=== PATIENT | male | born 1945 | race Two or more races ===

== ENCOUNTER 2018-01-17 17:45 | Inpatient (IN) | payer MEDICARE, MEDICAID ==
[2018-01-17] VITALS (7 sets, daily range): BP systolic 80–113; BP diastolic 43–71
[~2018-01-17] VITALS: Ht 167.6 cm; Wt 61.2 kg
[~2018-01-17 17:45] MED LIST: Bupivacaine 0.75% 30ml vial INJ ONE; Lidocaine 1% MPF 10mg/ml 5ml INJ ONE; oxyCODONE HCL/Acetaminophen 5/325mg ORAL ONE
--- NOTE | 2018-01-17 17:50 | Emergency Room Report ---
History of Present Illness General Chief Complaint: Multiple Trauma/Fall Source: Patient, EMS Present Illness HPI 72YOM with accidental slip and fall in bathroom at [place] on right side Couldnt move, stand up without assistance EMS noted abrasions to right arm, leg and deformity to right hip Allergies: Coded Allergies: No Known Allergies (Unverified , 01/17/18) Review of Systems All Other Systems: negative except mentioned in HPI Physical Exam Vital Signs Date Time Temp Pulse Resp B/P (MAP) Pulse Ox O2 Delivery O2 Flow Rate FiO2 01/17/18 17:39 98.0 80 16 110/70 98 Room Air 98.1 Sp02 EP Interpretation: reviewed, normal General Appearance: normal inspection, well appearing, no apparent distress, alert, GCS 15, non-toxic Head: normocephalic, atraumatic Eyes: bilateral eye PERRL, bilateral eye EOMI ENT: normal ENT inspection, hearing grossly normal, normal pharynx, no angioedema, normal voice, TMs + canals normal, uvula midline, moist mucus membranes Neck: normal inspection, full range of motion, supple, thyroid normal, no meningismus, no bony tend Respiratory: normal inspection, lungs clear, normal breath sounds, no rhonchi, no respiratory distress, no retraction, no accessory muscle use, no wheezing, speaking full sentences Cardiovascular #1: regular rate, rhythm, no edema, no JVD, normal capillary refill Gastrointestinal: normal inspection, normal bowel sounds, non tender, soft, no mass, no peritonitis, non-distended, no guarding, no hernia, no pulsatile mass Genitourinary: no CVA tenderness Musculoskeletal: normal inspection, back normal, normal range of motion, no calf tenderness, pelvis stable, Terrance's Sign negative, other - Right hip: obvious deformity of proximal hip, shorteend and internally rotated right lower extremity Neurologic: normal inspection, alert, oriented x3, responsive, 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, motor strength/tone normal, cerebellar normal, normal gait, speech normal Psychiatric: normal inspection, judgement/insight normal, mood/affect normal, no suicidal/homicidal ideation, no delusions Skin: other - Abrasions to right elbow and right anterior leg; multiple areas of ecchymoses Lymphatic: normal inspection, no adenopathy Procedures Ultrasound Ultrasound : Consent: Verbal Patient Tolerated: Well Complications: None Progress Ultrasound guided right femoral nerve block done with 8ml Buvipicaine and 2ml lidocaine Medical Decision Making Diagnostic Impression: Primary Impression: Fall Qualified Codes: W19.XXXA - Unspecified fall, initial encounter Additional Impressions: Right hip pain Closed right hip fracture Qualified Codes: S72.001A - Fracture of unspecified part of neck of right femur, initial encounter for closed fracture MARYANNE (acute kidney injury) ER Course Right hip pain found to have right hip fx on ED review of films Oral analgesia and right femoral nerve block provided in ED ECG non-ischemic, Trop 0. Dr Bolaños consulted PCP is Dr Rawls, endorsed to Dr Chinchilla at 740pm for tele bed Also has ?MARYANNE on labs, unknown if acute or chronic - possibly acute given mild hypotension, hypoNa in ED. Responded to LR. EKG Diagnostic Results Rate: normal Rhythm: NSR ST Segments: no acute changes ASA given to the pt in ED: No Rhythm Strip Diag. Results EP Interpretation: yes Rate: 65 Rhythm: NSR, no PVC's, no ectopy Other X-Ray Diagnostic Results Other X-Ray Diagnostic Results #1: X-Ray ordered: AP pelvis # of Views/Limited Vs Complete: 1 View Indication: Pain Interpretation: other Impression: Other - Right hip fx Electronically Signed by: Dr Fidelia Harris MD Other X-Ray Diagnostic Results #2: X-Ray ordered: Right hip # of Views/Limited Vs Complete: 3 View Indication: Pain Interpretation: other - Right hip fx Electronically Signed by: Dr Fidelia Harris MD Last Vital Signs Date Time Temp Pulse Resp B/P (MAP) Pulse Ox O2 Delivery O2 Flow Rate FiO2 01/17/18 17:39 98.0 80 16 110/70 98 Room Air 98.1 Status: improved Disposition: ADMITTED INPATIENT Condition: Serious FIDELIA HARRIS M.D. Jan 17, 2018 17:49
[2018-01-17] MEDS ORDERED: SPIRONOLACTONE100 MG ORAL (17:57)
[2018-01-17] MEDS ORDERED: FUROSEMIDE80 M1 ORAL (17:57)
[2018-01-17] MEDS ORDERED: ASPIR 8181 MG ORAL (17:57)
[2018-01-17] MEDS ORDERED: PANTOPRAZOLE SO40 MG ORAL (17:57)
[2018-01-17] MEDS ORDERED: FOLIC ACID1 MG ORAL (17:57)
[2018-01-17] MEDS ORDERED: TRAZODONE HCL50 MG ORAL (17:57)
[2018-01-17] MEDS ORDERED: LACTULOSE10 GM/153 PO (17:57)
[2018-01-17] MEDS ORDERED: TAMSULOSIN HCL0.4 MG ORAL (17:57)
[2018-01-17] MEDS ORDERED: TYLENOL EXTRA500 MG ORAL (17:57)
[2018-01-17] MEDS ORDERED: PROAIR HFA8.5 GM INH (17:57)
[2018-01-17] MEDS ORDERED: PROSCAR5 MG ORAL (17:57)
[2018-01-17] MEDS ORDERED: VENTOLIN HFA18 GM INH (17:57)
[2018-01-17 18:13] LABS: BASOPHILS % (AUTO) 1.6 % (0.0-2.0); EOSINOPHILS % (AUTO) 6.7 % (0.0-3.0); HEMATOCRIT 42.3 % (42.0-52.0); HEMOGLOBIN 14.8 G/DL (14.2-18.0); LYMPHOCYTES % (AUTO) 28.4 % (20.0-45.0); MEAN CORPUSCULAR VOLUME 98 FL (80-99); MONOCYTES % (AUTO) 13.2 % (1.0-10.0); NEUTROPHILS % (AUTO) 50.1 % (45.0-75.0); PLATELET COUNT 111 K/UL (150-450); RED BLOOD COUNT 4.32 M/UL (4.70-6.10); RED CELL DISTRIBUTION WIDTH 12.2 % (11.6-14.8)
[2018-01-17 18:23] LABS: ANION GAP 10 mmol/L (5-15); BLOOD UREA NITROGEN 36 mg/dL (7-18); CALCIUM 9.5 MG/DL (8.5-10.1); CARBON DIOXIDE 25 MMOL/L (21-32); CHLORIDE 96 MMOL/L (98-107); CREATININE 1.4 MG/DL (0.55-1.30); POTASSIUM 4.6 MMOL/L (3.5-5.1); SODIUM 130 MMOL/L (136-145)
[2018-01-17 18:27] LABS: ALANINE AMINOTRANSFERASE 15 U/L (12-78); ALBUMIN 3.3 G/DL (3.4-5.0); ALBUMIN/GLOBULIN RATIO 0.7 (1.0-2.7); ALKALINE PHOSPHATASE 114 U/L (46-116); ASPARTATE AMINO TRANSFERASE 27 U/L (15-37); BILIRUBIN,TOTAL 0.7 MG/DL (0.2-1.0); INR 1.2 (0.9-1.1)
[2018-01-17] MEDS ORDERED: TraZODone 50mg tab ORAL PRN (19:00)
[2018-01-17] MEDS ORDERED: Miralax 17gm pkt ORAL PRN (19:00)
[2018-01-17] MEDS ORDERED: oxyCODONE HCL/Acetaminophen 5/325mg ORAL PRN (19:00)
[2018-01-17] MEDS ORDERED: Acetaminophen 650 MG SUPP RECTAL PRN ×2 (19:00)
[2018-01-17] MEDS ORDERED: LR 1000ml 1,000 ML IV STA (19:16)
--- NOTE | 2018-01-17 22:35 | History and Physical ---
History of Present Illness General Date patient seen: Jan 17, 2018 Time patient seen: 19:30 Reason for Hospitalization: R hip fracture, syncope Present Illness HPI 72y/o male with pmh of CAD, HTN, PVD, COPD, BPH, tobacco abuse who presents with R hip pain after a fall. Pt states he was in bathroom and felt lightheaded and the room spinning. He then fell to the floor and had brief LOC. He states when he awoke he had full recollection of events. He landed on R side. He couldn 't move or stand up w/o assistance. Denies f/c, n/v, d/c, chest pain, SOB. Pt states he can walk several blocks and at least a flight of stairs. He walks on own and sometimes uses a cane. Activity limited by leg pain/weakness. In ED, pt found to have R hip fracture. Allergies: Coded Allergies: No Known Allergies (Unverified , 01/17/18) Medication History Scheduled Albuterol Sulfate (Ventolin Hfa), 1 PUFF INH EVERY 6 HOURS, (Reported) Albuterol Sulfate* (Proair Hfa*), 1 PUFF INH Q6H, (Reported) Aspirin* (Aspir 81*), 81 MG ORAL DAILY, (Reported) Finasteride* (Proscar*), 5 MG ORAL DAILY, (Reported) Folic Acid* (Folic Acid*), 1 MG ORAL DAILY, (Reported) Furosemide* (Lasix*), 80 MG ORAL BID, (Reported) Pantoprazole* (Pantoprazole*), 40 MG ORAL DAILY, (Reported) Spironolactone* (Spironolactone*), 100 MG ORAL DAILY, (Reported) Tamsulosin Hcl (Tamsulosin Hcl*), 0.4 MG ORAL BEDTIME, (Reported) Trazodone Hcl* (Desyrel*), 50 MG ORAL BEDTIME, (Reported) Scheduled PRN Acetaminophen* (Tylenol Extra Strength*), 500 MG ORAL Q6H PRN for Mild Pain/ Temp > 100.5, (Reported) Miscellaneous Medications Lactulose (Lactulose), 10 GM PO, (Reported) Patient History History Provided By: Patient, Medical Record, PMD Healthcare decision maker Resuscitation status Advanced Directive on File Past Medical/Surgical History Past Medical/Surgical History: (1) CAD (coronary artery disease) (2) HTN (hypertension) (3) HLD (hyperlipidemia) (4) BPH (benign prostatic hyperplasia) (5) COPD (chronic obstructive pulmonary disease) (6) Tobacco abuse (7) PVD (peripheral vascular disease) Family History Family History: Patient reports no known family medical history. Social History Social History: (1) lives [place] [facility] Review of Systems Constitutional: Reports: malaise, weakness Eye: Reports: no symptoms ENT: Reports: no symptoms Respiratory: Reports: no symptoms Cardiovascular: Reports: syncope Gastrointestinal: Reports: no symptoms Genitourinary: Reports: no symptoms Musculoskeletal: Reports: joint pain, muscle pain Skin: Reports: no symptoms Psychiatric: Reports: no symptoms Neurological: Reports: no symptoms Endocrine: Reports: no symptoms Hematologic/Lymphatic: Reports: no symptoms Physical Exam Physical Exam Narrative General: alert, cooperative, no distress, appears stated age Head: normocephalic, without obvious abnormality, atraumatic Eyes: conjunctivae/corneas clear. PERRL, EOM's intact Throat: lips, mucosa, and tongue normal. Dry MM Neck: supple, symmetrical, trachea midline, and no JVD Lungs: clear to auscultation bilaterally Heart: regular rate and rhythm, S1, S2 normal, no murmur, click, rub or gallop Abdomen: soft, non-tender, non-distended, bowel sounds normal Extremities: +R hip TTP w/ ROM limited 2/2 pain, no cyanosis or edema Pulses: 2+ and symmetric Skin: skin color, texture, turgor normal; +abrasions on extremities Neurologic: grossly normal, no focal deficits Last 24 Hour Vital Signs Date Time Temp Pulse Resp B/P (MAP) Pulse Ox O2 Delivery O2 Flow Rate FiO2 01/17/18 19:54 97.5 74 16 113/71 96 Room Air 97.5 01/17/18 19:40 97.5 71 16 100/45 96 Room Air 97.5 01/17/18 19:29 97.5 77 16 87/52 96 Room Air 97.5 01/17/18 17:48 97.1 71 19 94/56 98 Room Air 97.1 01/17/18 17:39 98.0 80 16 110/70 98 Room Air 98.1 Laboratory Tests Test 01/17/18 18:00 White Blood Count 7.0 K/UL (4.8-10.8) Red Blood Count 4.32 M/UL (4.70-6.10) L Hemoglobin 14.8 G/DL (14.2-18.0) Hematocrit 42.3 % (42.0-52.0) Mean Corpuscular Volume 98 FL (80-99) Mean Corpuscular Hemoglobin 34.2 PG (27.0-31.0) H Mean Corpuscular Hemoglobin Concent 34.9 G/DL (32.0-36.0) Red Cell Distribution Width 12.2 % (11.6-14.8) Platelet Count 111 K/UL (150-450) L Mean Platelet Volume 6.0 FL (6.5-10.1) L Neutrophils (%) (Auto) 50.1 % (45.0-75.0) Lymphocytes (%) (Auto) 28.4 % (20.0-45.0) Monocytes (%) (Auto) 13.2 % (1.0-10.0) H Eosinophils (%) (Auto) 6.7 % (0.0-3.0) H Basophils (%) (Auto) 1.6 % (0.0-2.0) Prothrombin Time 12.3 SEC (9.30-11.50) H Prothromb Time International Ratio 1.2 (0.9-1.1) H Sodium Level 130 MMOL/L (136-145) L Potassium Level 4.6 MMOL/L (3.5-5.1) Chloride Level 96 MMOL/L (98-107) L Carbon Dioxide Level 25 MMOL/L (21-32) Anion Gap 10 mmol/L (5-15) Blood Urea Nitrogen 36 mg/dL (7-18) H Creatinine 1.4 MG/DL (0.55-1.30) H Estimat Glomerular Filtration Rate mL/min (>60) Glucose Level 129 MG/DL (74-106) H Calcium Level 9.5 MG/DL (8.5-10.1) Total Bilirubin 0.7 MG/DL (0.2-1.0) Aspartate Amino Transf (AST/SGOT) 27 U/L (15-37) Alanine Aminotransferase (ALT/SGPT) 15 U/L (12-78) Alkaline Phosphatase 114 U/L (46-116) Troponin I 0.000 ng/mL (0.000-0.056) Total Protein 8.3 G/DL (6.4-8.2) H Albumin 3.3 G/DL (3.4-5.0) L Globulin 5.0 g/dL Albumin/Globulin Ratio 0.7 (1.0-2.7) L Height (Feet): 5 Height (Inches): 6.00 Weight (Pounds): 135 Medications Current Medications Medications (Trade) Dose Ordered Sig/Elyse Route PRN Reason Start Time Stop Time Status Last Admin Dose Admin Acetaminophen (Tylenol) 650 mg Q4H PRN ORAL Mild Pain (Pain Scale 1-3) 01/17/18 19:00 02/16/18 18:59 Acetaminophen (Tylenol) 650 mg Q4H PRN ORAL T>100.5 01/17/18 19:00 02/16/18 18:59 Acetaminophen (Tylenol) 650 mg Q4H PRN RECTAL Mild Pain (Pain Scale 1-3) 01/17/18 19:00 02/16/18 18:59 Acetaminophen (Tylenol) 650 mg Q4H PRN RECTAL T>100.5 01/17/18 19:00 02/16/18 18:59 Aspirin (Ecotrin) 81 mg DAILY ORAL 01/18/18 09:00 02/17/18 08:59 Bisacodyl (Dulcolax) 10 mg HSPRN PRN RECTAL Constipation 01/17/18 19:00 02/16/18 18:59 Dextrose (Dextrose 50%) STAT PRN IV Hypoglycemia 01/17/18 19:00 02/16/18 18:59 Diphenhydramine HCl (Benadryl) 25 mg Q6H PRN ORAL Itching/Pruritis 01/17/18 19:00 02/16/18 18:59 Docusate Sodium (Colace) 100 mg EVERY 12 HOURS ORAL 01/17/18 21:00 02/16/18 20:59 Folic Acid (Folate) 1 mg DAILY ORAL 01/18/18 09:00 02/17/18 08:59 Morphine Sulfate (Morphine Sulfate) 4 mg Q4H PRN IVP breakthrough pain 01/17/18 19:00 01/24/18 18:59 Ondansetron HCl (Zofran) 4 mg Q6H PRN IVP Nausea & Vomiting 01/17/18 19:00 02/16/18 18:59 Oxycodone/ Acetaminophen (Percocet 10/325) 1 tab Q4H PRN ORAL Severe Pain (Pain Scale 7-10) 01/17/18 19:00 01/24/18 18:59 Oxycodone/ Acetaminophen (Percocet 5-325) 1 tab Q4H PRN ORAL Moderate Pain (Pain Scale 4-6) 01/17/18 19:00 01/24/18 18:59 Pantoprazole (Protonix) 40 mg DAILY ORAL 01/18/18 09:00 02/17/18 08:59 Polyethylene Glycol (Miralax) 17 gm HSPRN PRN ORAL Constipation 01/17/18 19:00 02/16/18 18:59 Sodium Chloride 1,000 ml @ 75 mls/hr [id number] IV 01/17/18 19:00 02/16/18 18:59 Tamsulosin HCl (Flomax) 0.4 mg BEDTIME ORAL 01/17/18 21:00 02/16/18 20:59 Trazodone HCl (Desyrel) 50 mg HSPRN PRN ORAL insomnia 01/17/18 19:00 02/16/18 18:59 Assessment/Plan Problem List: (1) Fracture of right hip ICD Codes: S72.001A - Fracture of unspecified part of neck of right femur, initial encounter for closed fracture SNOMED: 854379227 (2) Syncope ICD Codes: R55 - Syncope and collapse SNOMED: 892188327 (3) MARYANNE (acute kidney injury) ICD Codes: N17.9 - Acute kidney failure, unspecified SNOMED: 85541130 (4) Hyponatremia ICD Codes: E87.1 - Hypo-osmolality and hyponatremia SNOMED: 97196228 (5) CAD (coronary artery disease) ICD Codes: I25.10 - Atherosclerotic heart disease of [place] coronary artery without angina pectoris SNOMED: 18283226 (6) COPD (chronic obstructive pulmonary disease) ICD Codes: J44.9 - Chronic obstructive pulmonary disease, unspecified SNOMED: 06142580 (7) HTN (hypertension) ICD Codes: I10 - Essential (primary) hypertension SNOMED: 52852240 (8) HLD (hyperlipidemia) ICD Codes: E78.5 - Hyperlipidemia, unspecified SNOMED: 77833465 (9) BPH (benign prostatic hyperplasia) ICD Codes: N40.0 - Benign prostatic hyperplasia without lower urinary tract symptoms SNOMED: 923988598 (10) Tobacco abuse ICD Codes: Z72.0 - Tobacco use SNOMED: 790808591 Status: stable Assessment/Plan Labs with evidence of dehydration. Syncope may be 2/2 orthostatic hypotension Admit to tele Ortho consulted [facility] RLE Likely plan for OR for ORIF per ortho in 1-2 days Pain control, bowel regimen Cardiology consulted Trend trop/EKG Check TTE Check Carotid duplex IVFs for MARYANNE Cont home meds but hold home lasix and aldactone for now DVT Prophylaxis: SCD Code Status: Full Hospital Classification Declaration: Based on this initial evaluation, and depending on the patient's clinical course, I anticipate that this patient will require hospitalization for 2-3 days for R hip fracture, syncope, MARYANNE and close respiratory/hemodynamic monitoring. Disposition: Once the patient is stable to leave the hospital, I anticipate the patient will likely be discharged to the following environment: back to [facility] vs SNF I spent 70 minutes on this patient's case, and >50% was dedicated to counseling and/or care coordination. Discussed with patient/family, nursing staff, SW/CM, ER physician, cardiology regarding clinical status, treatment course, and disposition planning. Time of note may not reflect time of encounter. Amor Perdomo M.D. Jan 17, 2018 22:35
[2018-01-17] MEDS: Tamsulosin 0.4mg cap ORAL SCH (23:32)
[2018-01-17] MEDS: Docusate 100mg cap ORAL SCH (23:32)
[2018-01-18] VITALS: BP 95/50
[2018-01-18 04:00] VITALS: BP 120/47
[2018-01-18 07:19] LABS: BASOPHILS % (AUTO) 0.8 % (0.0-2.0); EOSINOPHILS % (AUTO) 1.7 % (0.0-3.0); HEMATOCRIT 32.2 % (42.0-52.0); HEMOGLOBIN 11.4 G/DL (14.2-18.0); LYMPHOCYTES % (AUTO) 24.8 % (20.0-45.0); MEAN CORPUSCULAR VOLUME 98 FL (80-99); MONOCYTES % (AUTO) 15.5 % (1.0-10.0); NEUTROPHILS % (AUTO) 57.1 % (45.0-75.0); PLATELET COUNT 100 K/UL (150-450); RED BLOOD COUNT 3.28 M/UL (4.70-6.10); RED CELL DISTRIBUTION WIDTH 12.3 % (11.6-14.8); WHITE BLOOD COUNT 8.4 K/UL (4.8-10.8)
[2018-01-18 07:32] LABS: ANION GAP 7 mmol/L (5-15); BLOOD UREA NITROGEN 37 mg/dL (7-18); CALCIUM 8.8 MG/DL (8.5-10.1); CARBON DIOXIDE 25 MMOL/L (21-32); CHLORIDE 101 MMOL/L (98-107); CREATININE 1.3 MG/DL (0.55-1.30); POTASSIUM 4.8 MMOL/L (3.5-5.1); SODIUM 133 MMOL/L (136-145)
--- NOTE | 2018-01-18 07:49 | Consultation ---
Consult Note Consult Note Patient seen/evaluated. Right hip fx. Plan on ORIF tomorrow afternoon. Discussed plan with the patient. Full consult dictated. JESSICA RODGERS Jan 18, 2018 07:49
[2018-01-18] MEDS ORDERED: ceFAZolin sod 2 GM in D5W 110 ML IV ONE (08:00)
[2018-01-18 08:13] VITALS: BP 120/78
[2018-01-18] MEDS: Docusate 100mg cap ORAL SCH ×2 (08:48→21:52)
[2018-01-18] MEDS: Aspirin EC 81mg tab ORAL SCH (08:48)
--- NOTE | 2018-01-18 09:15 | Diagnostic Imaging Report ---
Indication: Pain, status post fall Technique: One view of the pelvis, 2 views of the right hip Comparison: none Findings: There is a comminuted angulated intertrochanteric fracture of the right hip. No definite pelvic fracture demonstrated. The joint spaces are preserved. Impression: Positive for right hip intertrochanteric fracture Electronic medical record indicates that patient has been admitted and orthopedic consult obtained
--- NOTE | 2018-01-18 09:41 | Diagnostic Imaging Report ---
Indication: Chest pain Technique: One view of the chest Comparison: Findings: Atelectatic changes are seen in the right lung base. Lungs and pleural spaces are otherwise clear. Heart size is normal. The aorta is elongated and calcified. Impression: Basilar atelectasis. No acute process otherwise
[2018-01-18] MEDS ORDERED: Bupivacaine 0.75% 30ml vial INJ ONE (11:59)
[2018-01-18 12:00] VITALS: BP 103/60
[2018-01-18] MEDS ORDERED: Albuterol/Ipratropium 3ml neb HHN PRN (12:45)
[2018-01-18] MEDS: Albuterol/Ipratropium 3ml neb HHN SCH ×2 (13:30→19:35)
[2018-01-18 16:00] VITALS: BP 94/54
--- NOTE | 2018-01-18 16:48 | Anethesia Preoperative Eval ---
Anesthesia Pre-op PMH/ROS General Date of Evaluation: Jan 18, 2018 Time of Evaluation: 16:42 Anesthesiologist: Paresh ASA Score: ASA 3 Mallampati Score Class I : Soft palate, uvula, fauces, pillars visible Class II: Soft palate, uvula, fauces visible Class III: Soft palate, base of uvula visible Class IV: Only hard plate visible Mallampati Classification: Class III Surgeon: Georgi Diagnosis: R femoral Fx Surgical Procedure: ORIF of R femoral Fx. Anesthesia History: none Social History: smoking - h/o heavy smoking Family History: no anesthesia problems Allergies: Coded Allergies: No Known Allergies (Unverified , 01/17/18) Past Medical History Cardiovascular: Reports: HTN, CAD - no recent CP, other - PVD Pulmonary: Reports: COPD, Denies: asthma, ELZA, other Gastrointestinal/Genitourinary: Reports: GERD, Denies: CRI, ESRD, other Neurologic/Psychiatric: Reports: depression/anxiety, Denies: dementia, CVA, TIA, other Endocrine: Denies: DM, hypothyroidism, steroids, other HEENT: Denies: cataract (L), cataract (R), glaucoma, [place] (L), [place] (R), other Hematology/Immune: Denies: anemia, DVT, bleeding disorder, other Musculoskeletal/Integumentary: Reports: DJD, Denies: OA, RA, DDD, edema, other Other: other - malnourished PMH Narrative: as above , mechanical fall possible syncope PSxH Narrative: see H&P Anesthesia Pre-op Phys. Exam Physician Exam Last Vital Signs Date Time Temp Pulse Resp B/P (MAP) Pulse Ox O2 Delivery O2 Flow Rate FiO2 01/18/18 16:08 97.0 01/18/18 15:40 78 22 94 Nasal Cannula 2.0 28 01/18/18 12:00 103/60 Constitutional: NAD Neurologic: CN 2-12 intact Cardiovascular: no M/R/G Respiratory: other - diffuse wheezing bilaterally Gastrointestinal: S/NT/ND Airway Exam Mallampati Score: Class III MO: limited Neck: stiff ROM: limited Teeth: missing Dentures: no upper, no lower Anesthesia Pre-op A/P Labs Hematology Test 01/17/18 18:00 01/18/18 06:05 White Blood Count 7.0 K/UL (4.8-10.8) 8.4 K/UL (4.8-10.8) Red Blood Count 4.32 M/UL (4.70-6.10) L 3.28 M/UL (4.70-6.10) L Hemoglobin 14.8 G/DL (14.2-18.0) 11.4 G/DL (14.2-18.0) L Hematocrit 42.3 % (42.0-52.0) 32.2 % (42.0-52.0) L Mean Corpuscular Volume 98 FL (80-99) 98 FL (80-99) Mean Corpuscular Hemoglobin 34.2 PG (27.0-31.0) H 34.7 PG (27.0-31.0) H Mean Corpuscular Hemoglobin Concent 34.9 G/DL (32.0-36.0) 35.3 G/DL (32.0-36.0) Red Cell Distribution Width 12.2 % (11.6-14.8) 12.3 % (11.6-14.8) Platelet Count 111 K/UL (150-450) L 100 K/UL (150-450) L Mean Platelet Volume 6.0 FL (6.5-10.1) L 5.9 FL (6.5-10.1) L Neutrophils (%) (Auto) 50.1 % (45.0-75.0) 57.1 % (45.0-75.0) Lymphocytes (%) (Auto) 28.4 % (20.0-45.0) 24.8 % (20.0-45.0) Monocytes (%) (Auto) 13.2 % (1.0-10.0) H 15.5 % (1.0-10.0) H Eosinophils (%) (Auto) 6.7 % (0.0-3.0) H 1.7 % (0.0-3.0) Basophils (%) (Auto) 1.6 % (0.0-2.0) 0.8 % (0.0-2.0) Coagulation Test 01/17/18 18:00 Prothrombin Time 12.3 SEC (9.30-11.50) H Prothromb Time International Ratio 1.2 (0.9-1.1) H Chemistry Test 01/17/18 18:00 01/18/18 06:05 01/18/18 12:30 Sodium Level 130 MMOL/L (136-145) L 133 MMOL/L (136-145) L Potassium Level 4.6 MMOL/L (3.5-5.1) 4.8 MMOL/L (3.5-5.1) Chloride Level 96 MMOL/L (98-107) L 101 MMOL/L (98-107) Carbon Dioxide Level 25 MMOL/L (21-32) 25 MMOL/L (21-32) Anion Gap 10 mmol/L (5-15) 7 mmol/L (5-15) Blood Urea Nitrogen 36 mg/dL (7-18) H 37 mg/dL (7-18) H Creatinine 1.4 MG/DL (0.55-1.30) H 1.3 MG/DL (0.55-1.30) Estimat Glomerular Filtration Rate mL/min (>60) mL/min (>60) Glucose Level 129 MG/DL (74-106) H 109 MG/DL (74-106) H Calcium Level 9.5 MG/DL (8.5-10.1) 8.8 MG/DL (8.5-10.1) Total Bilirubin 0.7 MG/DL (0.2-1.0) Aspartate Amino Transf (AST/SGOT) 27 U/L (15-37) Alanine Aminotransferase (ALT/SGPT) 15 U/L (12-78) Alkaline Phosphatase 114 U/L (46-116) Troponin I 0.000 ng/mL (0.000-0.056) 0.000 ng/mL (0.000-0.056) 0.004 ng/mL (0.000-0.056) Total Protein 8.3 G/DL (6.4-8.2) H Albumin 3.3 G/DL (3.4-5.0) L Globulin 5.0 g/dL Albumin/Globulin Ratio 0.7 (1.0-2.7) L Pro-B-Type Natriuretic Peptide 121 pg/mL (0-125) Vitamin B12 Level 441 PG/ML (193-986) Vitamin D 25-Hydroxy Pending 25-Hydroxy Vitamin D2 Pending 25-Hydroxy Vitamin D3 Pending Folate 63.6 NG/ML (8.6-58.9) H Thyroid Stimulating Hormone (TSH) 2.306 uiU/mL (0.358-3.740) Studies Pre-op Studies: EKG - NSR Risk Assessment & Plan Assessment: ASA 3 Plan: SAB vs GA Pre-Antibiotics Drug: as scheduled MARTA MONSON M.D. Jan 18, 2018 16:48
--- NOTE | 2018-01-18 16:54 | Cardiac Electrophysiology PN ---
Subjective Subjective [id number] Objective Last 24 Hour Vital Signs Date Time Temp Pulse Resp B/P (MAP) Pulse Ox O2 Delivery O2 Flow Rate FiO2 01/18/18 16:08 97.0 01/18/18 15:40 78 22 94 Nasal Cannula 2.0 28 01/18/18 15:30 75 22 Nasal Cannula 3.0 32 01/18/18 15:30 75 22 98 Nasal Cannula 3.0 32 01/18/18 12:00 97.0 71 18 103/60 97 Nasal Cannula 97.0 01/18/18 12:00 80 01/18/18 10:00 Nasal Cannula 2.0 28 01/18/18 10:00 94 Nasal Cannula 2.0 28 01/18/18 09:52 98.2 01/18/18 08:53 98.2 01/18/18 08:13 98.2 75 17 120/78 94 Nasal Cannula 98.2 01/18/18 08:00 86 01/18/18 04:00 98.3 75 21 120/47 94 Nasal Cannula 98.3 01/18/18 03:53 84 01/18/18 00:00 97.3 74 23 95/50 95 Nasal Cannula 97.3 01/17/18 23:56 71 01/17/18 21:35 97.5 74 16 91/48 96 Room Air 97.5 01/17/18 21:30 97.5 74 16 91/48 96 Room Air 97.5 01/17/18 21:20 97.5 74 16 80/43 96 Room Air 97.5 01/17/18 21:00 97.5 70 16 94/45 96 Room Air 97.5 01/17/18 19:54 97.5 74 16 113/71 96 Room Air 97.5 01/17/18 19:40 97.5 71 16 100/45 96 Room Air 97.5 01/17/18 19:29 97.5 77 16 87/52 96 Room Air 97.5 01/17/18 17:48 97.1 71 19 94/56 98 Room Air 97.1 01/17/18 17:39 98.0 80 16 110/70 98 Room Air 98.1 Intake and Output 01/17/18 01/18/18 19:00 07:00 Intake Total 555 ml Output Total 200 ml Balance 355 ml Intake Oral 0 ml IV Total 555 ml Output Urine Total 200 ml Laboratory Tests Test 01/17/18 18:00 01/18/18 06:05 01/18/18 12:30 White Blood Count 7.0 K/UL (4.8-10.8) 8.4 K/UL (4.8-10.8) Red Blood Count 4.32 M/UL (4.70-6.10) L 3.28 M/UL (4.70-6.10) L Hemoglobin 14.8 G/DL (14.2-18.0) 11.4 G/DL (14.2-18.0) L Hematocrit 42.3 % (42.0-52.0) 32.2 % (42.0-52.0) L Mean Corpuscular Volume 98 FL (80-99) 98 FL (80-99) Mean Corpuscular Hemoglobin 34.2 PG (27.0-31.0) H 34.7 PG (27.0-31.0) H Mean Corpuscular Hemoglobin Concent 34.9 G/DL (32.0-36.0) 35.3 G/DL (32.0-36.0) Red Cell Distribution Width 12.2 % (11.6-14.8) 12.3 % (11.6-14.8) Platelet Count 111 K/UL (150-450) L 100 K/UL (150-450) L Mean Platelet Volume 6.0 FL (6.5-10.1) L 5.9 FL (6.5-10.1) L Neutrophils (%) (Auto) 50.1 % (45.0-75.0) 57.1 % (45.0-75.0) Lymphocytes (%) (Auto) 28.4 % (20.0-45.0) 24.8 % (20.0-45.0) Monocytes (%) (Auto) 13.2 % (1.0-10.0) H 15.5 % (1.0-10.0) H Eosinophils (%) (Auto) 6.7 % (0.0-3.0) H 1.7 % (0.0-3.0) Basophils (%) (Auto) 1.6 % (0.0-2.0) 0.8 % (0.0-2.0) Prothrombin Time 12.3 SEC (9.30-11.50) H Prothromb Time International Ratio 1.2 (0.9-1.1) H Sodium Level 130 MMOL/L (136-145) L 133 MMOL/L (136-145) L Potassium Level 4.6 MMOL/L (3.5-5.1) 4.8 MMOL/L (3.5-5.1) Chloride Level 96 MMOL/L (98-107) L 101 MMOL/L (98-107) Carbon Dioxide Level 25 MMOL/L (21-32) 25 MMOL/L (21-32) Anion Gap 10 mmol/L (5-15) 7 mmol/L (5-15) Blood Urea Nitrogen 36 mg/dL (7-18) H 37 mg/dL (7-18) H Creatinine 1.4 MG/DL (0.55-1.30) H 1.3 MG/DL (0.55-1.30) Estimat Glomerular Filtration Rate mL/min (>60) mL/min (>60) Glucose Level 129 MG/DL (74-106) H 109 MG/DL (74-106) H Calcium Level 9.5 MG/DL (8.5-10.1) 8.8 MG/DL (8.5-10.1) Total Bilirubin 0.7 MG/DL (0.2-1.0) Aspartate Amino Transf (AST/SGOT) 27 U/L (15-37) Alanine Aminotransferase (ALT/SGPT) 15 U/L (12-78) Alkaline Phosphatase 114 U/L (46-116) Troponin I 0.000 ng/mL (0.000-0.056) 0.000 ng/mL (0.000-0.056) 0.004 ng/mL (0.000-0.056) Total Protein 8.3 G/DL (6.4-8.2) H Albumin 3.3 G/DL (3.4-5.0) L Globulin 5.0 g/dL Albumin/Globulin Ratio 0.7 (1.0-2.7) L Pro-B-Type Natriuretic Peptide 121 pg/mL (0-125) Vitamin B12 Level 441 PG/ML (193-986) Vitamin D 25-Hydroxy Pending 25-Hydroxy Vitamin D2 Pending 25-Hydroxy Vitamin D3 Pending Folate 63.6 NG/ML (8.6-58.9) H Thyroid Stimulating Hormone (TSH) 2.306 uiU/mL (0.358-3.740) KINZA MCCOY Jan 18, 2018 16:54
[2018-01-18 20:00] VITALS: BP 93/55
--- NOTE | 2018-01-18 21:02 | Consultation ---
DATE OF CONSULTATION: 01/18/2018 ORTHOPEDIC CONSULTATION CONSULTING PHYSICIAN: Alec Laureano M.D. REQUESTING PHYSICIAN: Albertina Rawls M.D. REASON FOR CONSULTATION: Right-sided hip fracture. BRIEF HISTORY: The patient is a pleasant 72-year-old gentleman who lives in a board and care facility, ambulates using a cane. He states that 2 weeks ago, he fell and had some bruising in his forehead and in his forearm, however, he was able to walk around and ambulate without significant difficulty using a cane, however, last night, he was in the board and care facility and he went to the bathroom and slipped on the floor and landed on his right side on the hard tile. He had immediate onset of pain about the right hip. He was unable to ambulate. He was brought in to [facility] and x-rays revealed a comminuted peritrochanteric fracture of the right hip. Orthopedic consultation was obtained. The patient was admitted to Dr. Rawls. Generally, the patient is in reasonable health. PAST MEDICAL HISTORY: History of hypertension. PAST SURGICAL HISTORY: None available. MEDICATIONS: Please see chart. ALLERGIES: No known drug allergies. SOCIAL HISTORY: He lives in a board and care facility and uses a cane to get around. He does not smoke or drink excessively. REVIEW OF SYSTEMS: Noncontributory. PHYSICAL EXAMINATION: Examination of the right hip reveals right leg is slightly short and externally rotated. He has got tenderness over the right peritrochanteric area. He has got a lot of bruising in his arm and his legs due to previous falls. There is no evidence of a large hematoma today. X-RAYS: X-ray of right hip was reviewed. There is a peritrochanteric right hip fracture. IMPRESSION: Right hip peritrochanteric fracture. PLAN: At this time, I had discussion with the patient. I explained to him my findings. I recommend proceeding with right hip open reduction and internal fixation with a short gamma nail. Risks, benefits, and complications of the surgery were discussed with him. He understands the risks of surgery and complications associated with it and will like to go ahead and proceed with it. All questions were answered. We will go ahead and proceed with surgery tomorrow. We will have him n.p.o. past midnight. We will do 2D echo and he will be optimized by Medicine prior to proceeding with surgery. All questions were answered. Alec Laureano M.D. DR: Ariadna JOB#: [id number] CC: LILIAM
[2018-01-18] MEDS: Morphine Sulfate 4mg/ml Inj IVP PRN (21:52)
[2018-01-18] MEDS: Tamsulosin 0.4mg cap ORAL SCH (21:53)
--- NOTE | 2018-01-18 23:01 | Consultation ---
DATE OF CONSULTATION: 01/18/2018 CARDIOLOGY CONSULTATION CONSULTING PHYSICIAN: Jesus Goins M.D. REFERRING PHYSICIAN: Albertina Rawls M.D. REASON FOR CONSULTATION: Management of hypertension and preoperative clearance prior to right hip surgery. HISTORY OF PRESENT ILLNESS: The patient is a 72-year-old gentleman with history of hypertension, COPD, and benign prostatic hypertrophy as well as questionable myocardial infarction more than 30 years ago. The patient also has history of tobacco abuse, who presented to the emergency room after a fall and right hip pain. He was in the bathroom and felt lightheaded and then room was spinning and then fell on the floor, had a brief loss of consciousness. He states that when he woke up, he had full recollection of the events and landed on the right side, could not move or stand up. Denies any chest pain, shortness of breath, nausea, vomiting, or diaphoresis. The patient has not had any cardiac history in the last 20 years and has not seen a certified pharmacy tech. In the emergency room, the patient was found to have right hip fracture and was evaluated by Dr. Laureano and scheduled for surgery tomorrow. PAST MEDICAL HISTORY: As mentioned above. MEDICATIONS: Medications at home include aspirin, folic acid, Lasix, Aldactone, Flomax, and Ventolin. FAMILY HISTORY: Noncontributory. SOCIAL HISTORY: He lives at home, occasionally smokes, does not drink alcohol. REVIEW OF SYSTEMS: Review of systems was performed and was negative other than what was mentioned in the history of present illness. PHYSICAL EXAMINATION: VITAL SIGNS: Showed blood pressure of 110/70, pulse 70, respirations 18, and he is afebrile. HEAD AND NECK: Showed no JVD or carotid bruit. LUNGS: Clear. CARDIOVASCULAR: Shows regular S1 and S2 with no gallop or murmur. ABDOMEN: Soft. EXTREMITIES: Showed no pitting edema. Right hip is rotated. LABORATORY AND DIAGNOSTIC DATA: His labs show white count of 8.4, hemoglobin 11.4, hematocrit 32.2, and platelet count of 100. Sodium 132, potassium is 4.8, BUN of 37, creatinine 1.3, and glucose of 109. Troponin negative x2. EKG shows sinus rhythm. No acute ST-T wave abnormality and poor R-wave progression. ASSESSMENT AND PLAN: 1. Status post fall versus syncope. The patient states that he has a good recollection of the event. He is already ruled out for myocardial infarction. His vital signs have been stable. We will just get an echocardiogram to evaluate for ejection fraction and wall motion abnormality. 2. History of asthma, on albuterol. 3. Right hip fracture. The patient does not have any chest pain or shortness of breath. There is no history of congestive heart failure. The patient is cleared from cardiac standpoint to undergo the right hip surgery. Thank you very much for allowing me to participate in the care of this patient. Please do not hesitate to contact me for any questions regarding my evaluation. Jesus Goins M.D. DR: MARK JOB#: [id number] CC:
--- NOTE | 2018-01-18 23:01 | General Progress Note ---
Assessment/Plan Problem List: (1) Fracture of right hip ICD Codes: S72.001A - Fracture of unspecified part of neck of right femur, initial encounter for closed fracture SNOMED: 354887369 (2) Syncope ICD Codes: R55 - Syncope and collapse SNOMED: 294382169 (3) MARYANNE (acute kidney injury) ICD Codes: N17.9 - Acute kidney failure, unspecified SNOMED: 33380819 (4) Hyponatremia ICD Codes: E87.1 - Hypo-osmolality and hyponatremia SNOMED: 06530474 (5) CAD (coronary artery disease) ICD Codes: I25.10 - Atherosclerotic heart disease of [place] coronary artery without angina pectoris SNOMED: 95124773 (6) COPD (chronic obstructive pulmonary disease) ICD Codes: J44.9 - Chronic obstructive pulmonary disease, unspecified SNOMED: 88011744 (7) HTN (hypertension) ICD Codes: I10 - Essential (primary) hypertension SNOMED: 48288764 (8) HLD (hyperlipidemia) ICD Codes: E78.5 - Hyperlipidemia, unspecified SNOMED: 06179023 (9) BPH (benign prostatic hyperplasia) ICD Codes: N40.0 - Benign prostatic hyperplasia without lower urinary tract symptoms SNOMED: 337715538 (10) Tobacco abuse ICD Codes: Z72.0 - Tobacco use SNOMED: 310850725 (11) PVD (peripheral vascular disease) ICD Codes: I73.9 - Peripheral vascular disease, unspecified SNOMED: 341599212 (12) Alcoholic liver disease Assessment & Plan: Cirrhosis ICD Codes: K70.9 - Alcoholic liver disease, unspecified SNOMED: 12481334 Status: stable Status Narrative Labs with evidence of dehydration. Syncope may be 2/2 orthostatic hypotension Monitor on tele Ortho consulted [facility] RLE Plan for ORIF tomorrow, NPO at [facility] Pain control, bowel regimen Cardiology consulted Trop neg Check TTE--EF wnl Check Carotid duplex IVFs for MARYANNE Cont home meds but hold home lasix and aldactone for now DVT Prophylaxis: SCD Code Status: Full Hospital Classification Declaration: Based on this initial evaluation, and depending on the patient's clinical course, I anticipate that this patient will require hospitalization for 2-3 days for R hip fracture, syncope, MARYANNE and close respiratory/hemodynamic monitoring. Disposition: Once the patient is stable to leave the hospital, I anticipate the patient will likely be discharged to the following environment: back to [facility] vs SNF Discussed with patient/family, nursing staff, SW/CM, ER physician, cardiology regarding clinical status, treatment course, and disposition planning. Time of note may not reflect time of encounter. Subjective Date patient seen: Jan 18, 2018 Time patient seen: 11:00 ROS Limited/Unobtainable: No Constitutional: Reports: no symptoms HEENT: Reports: no symptoms Cardiovascular: Reports: no symptoms Respiratory: Reports: no symptoms Gastrointestinal/Abdominal: Reports: no symptoms Genitourinary: Reports: no symptoms Neurologic/Psychiatric: Reports: no symptoms Endocrine: Reports: no symptoms Hematologic/Lymphatic: Reports: no symptoms Allergies: Coded Allergies: No Known Allergies (Unverified , 01/17/18) Subjective No acute o/n events Awaiting OR for ORIF per ortho Pain controlled. Denies f/c, n/v, d/c, chest pain, SOB, abd pain Objective Last 24 Hour Vital Signs Date Time Temp Pulse Resp B/P (MAP) Pulse Ox O2 Delivery O2 Flow Rate FiO2 01/18/18 22:22 97.7 01/18/18 21:52 97.7 01/18/18 20:00 97.7 79 24 93/55 98 Nasal Cannula 97.7 01/18/18 19:48 78 18 94 Nasal Cannula 3.0 32 01/18/18 19:39 Nasal Cannula 2.0 28 01/18/18 19:39 74 18 92 Nasal Cannula 2.0 28 01/18/18 19:37 93 Nasal Cannula 2.0 28 01/18/18 17:07 97.0 01/18/18 16:08 97.0 01/18/18 16:00 98.1 76 18 94/54 97 Nasal Cannula 98.1 01/18/18 16:00 70 01/18/18 15:40 78 22 94 Nasal Cannula 2.0 28 01/18/18 15:30 75 22 Nasal Cannula 3.0 32 01/18/18 15:30 75 22 98 Nasal Cannula 3.0 32 01/18/18 12:00 97.0 71 18 103/60 97 Nasal Cannula 97.0 01/18/18 12:00 80 01/18/18 10:00 Nasal Cannula 2.0 28 01/18/18 10:00 94 Nasal Cannula 2.0 28 01/18/18 08:53 98.2 01/18/18 08:13 98.2 75 17 120/78 94 Nasal Cannula 98.2 01/18/18 08:00 86 01/18/18 04:00 98.3 75 21 120/47 94 Nasal Cannula 98.3 01/18/18 03:53 84 01/18/18 00:00 97.3 74 23 95/50 95 Nasal Cannula 97.3 01/17/18 23:56 71 Intake and Output 01/17/18 01/18/18 19:00 07:00 Intake Total 555 ml Output Total 200 ml Balance 355 ml Intake Oral 0 ml IV Total 555 ml Output Urine Total 200 ml Laboratory Tests 01/18/18 06:05: White Blood Count 8.4, Red Blood Count 3.28L, Hemoglobin 11.4L, Hematocrit 32.2L , Mean Corpuscular Volume 98, Mean Corpuscular Hemoglobin 34.7H, Mean Corpuscular Hemoglobin Concent 35.3, Red Cell Distribution Width 12.3, Platelet Count 100L, Mean Platelet Volume 5.9L, Neutrophils (%) (Auto) 57.1, Lymphocytes (%) (Auto) 24.8, Monocytes (%) (Auto) 15.5H, Eosinophils (%) (Auto) 1.7, Basophils (%) (Auto) 0.8, Sodium Level 133L, Potassium Level 4.8, Chloride Level 101, Carbon Dioxide Level 25, Anion Gap 7, Blood Urea Nitrogen 37H, Creatinine 1.3, Estimat Glomerular Filtration Rate , Glucose Level 109H, Calcium Level 8.8, Troponin I 0.000, Pro-B-Type Natriuretic Peptide 121, Vitamin B12 Level 441, Vitamin D 25-Hydroxy [Pending], 25-Hydroxy Vitamin D2 [ Pending], 25-Hydroxy Vitamin D3 [Pending], Folate 63.6H, Thyroid Stimulating Hormone (TSH) 2.306 01/18/18 12:30: Troponin I 0.004 Height (Feet): 5 Height (Inches): 6.00 Weight (Pounds): 135 Objective General: alert, cooperative, no distress, appears stated age Head: normocephalic, without obvious abnormality, atraumatic Eyes: conjunctivae/corneas clear. PERRL, EOM's intact Throat: lips, mucosa, and tongue normal. Dry MM Neck: supple, symmetrical, trachea midline, and no JVD Lungs: clear to auscultation bilaterally Heart: regular rate and rhythm, S1, S2 normal, no murmur, click, rub or gallop Abdomen: soft, non-tender, non-distended, bowel sounds normal Extremities: +R hip TTP w/ ROM limited 2/2 pain, no cyanosis or edema Pulses: 2+ and symmetric Skin: skin color, texture, turgor normal; +abrasions on extremities Neurologic: grossly normal, no focal deficits Amor Perodmo M.D. Jan 18, 2018 23:01
[2018-01-19] VITALS (20 sets, daily range): BP systolic 85–118; BP diastolic 40–66
[2018-01-19] MEDS: Albuterol/Ipratropium 3ml neb HHN SCH ×4 (02:00→20:05)
[2018-01-19] MEDS: Morphine Sulfate 4mg/ml Inj IVP PRN ×2 (04:18→10:25)
[2018-01-19 07:20] LABS: HEMATOCRIT 28.5 % (42.0-52.0); HEMOGLOBIN 9.9 G/DL (14.2-18.0); MEAN CORPUSCULAR VOLUME 100 FL (80-99); PLATELET COUNT 88 K/UL (150-450); RED BLOOD COUNT 2.86 M/UL (4.70-6.10); RED CELL DISTRIBUTION WIDTH 12.6 % (11.6-14.8)
[2018-01-19 07:22] LABS: ANION GAP 6 mmol/L (5-15); BLOOD UREA NITROGEN 29 mg/dL (7-18); CALCIUM 8.9 MG/DL (8.5-10.1); CARBON DIOXIDE 25 MMOL/L (21-32); CHLORIDE 104 MMOL/L (98-107); CREATININE 1.1 MG/DL (0.55-1.30); POTASSIUM 4.8 MMOL/L (3.5-5.1); SODIUM 135 MMOL/L (136-145)
[2018-01-19] MEDS: Docusate 100mg cap ORAL SCH (08:40)
[2018-01-19] MEDS: Aspirin EC 81mg tab ORAL SCH (08:40)
--- NOTE | 2018-01-19 10:33 | Pre-Procedure Note/Attestation ---
Pre-Procedure Note/Attestation Complete Prior to Procedure Planned Procedure: right Procedure Narrative: Rt hip ORIF Indications for Procedure Pre-Operative Diagnosis: Rt hip IT fracture Attestation I attest that I discussed the nature of the procedure; its benefits; risks and complications; and alternatives (and the risks and benefits of such alternatives ), prior to the procedure, with the patient (or the patient's legal apprenticeship training representative). I attest that, if there was a reasonable possibility of needing a blood transfusion, the patient (or the patient's legal apprenticeship training representative) was given the [facility] standardized written summary, pursuant to the [employer] Blood Safety Act ([place] Health and Safety Code # 1645, as amended). I attest that I re-evaluated the patient just prior to the surgery and that there has been no change in the patient's H&P, except as documented below: NONE JESSICA RODGERS Jan 19, 2018 10:33
--- NOTE | 2018-01-19 13:19 | Cardiology Report ---
APPROVED REPORT EXAM: Two-dimensional and M-mode echocardiogram with Doppler and color Doppler. INDICATION PRE-OP M-Mode DIMENSIONS IVSd1.5 (0.7-1.1cm)Left Atrium (MM)2.8 (1.6-4.0cm) LVDd5.2 (3.5-5.6cm)Aortic Root4.2 (2.0-3.7cm) PWd1.7 (0.7-1.1cm)Aortic Cusp Exc.1.9 (1.5-2.0cm) IVSs2.1 cm LVDs3.4 (2.5-4.0cm) PWs1.9 cm Technically difficult study due to poor acoustical windows. Normal left ventricular chamber size, systolic function and wall motion to extent visualized. Left ventricular ejection fraction estimated to be 60-65 %. No evidence of left ventricular hypertrophy. No evidence of pericardial effusion. All other cardiac chamber sizes are within normal. Focal aortic valve sclerosis with adequate cusp excursion. Thickened mitral valve leaflets with normal excursion. Mitral annulus and aortic root calcification. Pulmonic valve not well visualized. Normal tricuspid valve structure. IVC dilated at 2.3 cm with slight physiologic collapse suggestive of increased RA pressure. A color flow and spectral Doppler study was performed and revealed: No aortic regurgitation. Trace mitral regurgitation. Mitral diastolic velocities suggest reduced left ventricular relaxation c/w mild LV diastolic dysfunction (Grade I ). Trace tricuspid regurgitation. No pulmonic regurgitation present
[2018-01-19] MEDS ORDERED: Bacitracin 50000 Units Vial ONE (13:35)
[2018-01-19] MEDS ORDERED: Bupivacaine 0.5% Inj 30 ml vial INJ ONE (13:35)
[2018-01-19] MEDS ORDERED: NeoSporin Gu Irrig 1ml Amp IRRIG ONE (13:35)
[2018-01-19] MEDS ORDERED: Ropivacaine 5mg/ml Vial 30ml INJ ONE (13:35)
[2018-01-19] MEDS ORDERED: HYDROcodone/Acetamin 7.5/325 tab ORAL PRN (13:45)
[2018-01-19] MEDS ORDERED: HYDROmorphone 1mg/ml Carpuject SUBQ PRN ×2 (13:45→21:45)
[2018-01-19] MEDS ORDERED: Milk of Magnesia 30ml Ud ORAL PRN (13:45)
[2018-01-19] MEDS ORDERED: fentaNYL 100 mcg/2 mL IV ONE (14:00)
[2018-01-19] MEDS ORDERED: NS Irrig 1000ml ONE (14:00)
[2018-01-19] MEDS ORDERED: Propofol 200mg/20ml IV ONE (14:00)
[2018-01-19] MEDS ORDERED: LR 1000ml ONE (14:00)
[2018-01-19] MEDS ORDERED: Sterile Water Irrig 1000ml IRRIG ONE (14:00)
[2018-01-19] MEDS ORDERED: ceFAZolin sod 2 GM in D5W 110 ML IV SCH (14:00)
--- NOTE | 2018-01-19 15:07 | Anethesia Preoperative Eval ---
Anesthesia Pre-op PMH/ROS General Date of Evaluation: Jan 19, 2018 Time of Evaluation: 13:00 ASA Score: ASA 4 Mallampati Score Class I : Soft palate, uvula, fauces, pillars visible Class II: Soft palate, uvula, fauces visible Class III: Soft palate, base of uvula visible Class IV: Only hard plate visible Mallampati Classification: Class I Anesthesia History: none Family History: no anesthesia problems Allergies: Coded Allergies: No Known Allergies (Unverified , 01/17/18) Past Medical History Cardiovascular: Reports: HTN, CAD Pulmonary: Reports: COPD Gastrointestinal/Genitourinary: Reports: GERD Anesthesia Pre-op Phys. Exam Physician Exam Last Vital Signs Date Time Temp Pulse Resp B/P (MAP) Pulse Ox O2 Delivery O2 Flow Rate FiO2 01/19/18 11:38 87 18 99 Nasal Cannula 3.0 32 01/19/18 10:55 98.7 01/19/18 08:00 111/55 Airway Exam Mallampati Score: Class III Anesthesia Pre-op A/P Labs Hematology Test 01/19/18 06:50 White Blood Count 8.0 K/UL (4.8-10.8) Red Blood Count 2.86 M/UL (4.70-6.10) L Hemoglobin 9.9 G/DL (14.2-18.0) L Hematocrit 28.5 % (42.0-52.0) L Mean Corpuscular Volume 100 FL (80-99) H Mean Corpuscular Hemoglobin 34.8 PG (27.0-31.0) H Mean Corpuscular Hemoglobin Concent 34.9 G/DL (32.0-36.0) Red Cell Distribution Width 12.6 % (11.6-14.8) Platelet Count 88 K/UL (150-450) L Mean Platelet Volume 5.9 FL (6.5-10.1) L Neutrophils (%) (Auto) % (45.0-75.0) Lymphocytes (%) (Auto) % (20.0-45.0) Monocytes (%) (Auto) % (1.0-10.0) Eosinophils (%) (Auto) % (0.0-3.0) Basophils (%) (Auto) % (0.0-2.0) Differential Total Cells Counted 100 Neutrophils % (Manual) 56 % (45-75) Lymphocytes % (Manual) 26 % (20-45) Monocytes % (Manual) 17 % (1-10) H Eosinophils % (Manual) 1 % (0-3) Basophils % (Manual) 0 % (0-2) Band Neutrophils 0 % (0-8) Platelet Estimate Decreased L Platelet Morphology Normal Hypochromasia 2+ Spherocytes 1+ Chemistry Test 01/19/18 06:50 Sodium Level 135 MMOL/L (136-145) L Potassium Level 4.8 MMOL/L (3.5-5.1) Chloride Level 104 MMOL/L (98-107) Carbon Dioxide Level 25 MMOL/L (21-32) Anion Gap 6 mmol/L (5-15) Blood Urea Nitrogen 29 mg/dL (7-18) H Creatinine 1.1 MG/DL (0.55-1.30) Estimat Glomerular Filtration Rate mL/min (>60) Glucose Level 107 MG/DL (74-106) H Calcium Level 8.9 MG/DL (8.5-10.1) Ifeoma Adhikari MD Jan 19, 2018 15:07
[2018-01-19] MEDS ORDERED: fentaNYL 100 mcg/2 mL IV PRN ×2 (15:15→18:45)
--- NOTE | 2018-01-19 15:35 | Brief Operative Note ---
Immediate Post Operative Note Operative Note Chief Complaint: rt hip pain Pre-op Diagnosis: rt hip IT fracture Procedure: Rt hip ORIF Post-op Diagnosis: same as pre-op Findings: consistent w/pre-op dx studies Surgeon: md Georgi Newsperson: haroldo weldon Anesthesiologist: md taqueria Anesthesia: general Specimen: none Complications: none Condition: stable Fluids: ns Estimated Blood Loss: minimal Drains: none Implant(s) used?: Yes - MERLINE Arriaga Jan 19, 2018 15:35
--- NOTE | 2018-01-19 15:42 | Immediate Post-Op Evaluation ---
Immediate Post-Op Evalulation Immediate Post-Op Evalulation Procedure: r femur orif Date of Evaluation: Jan 19, 2018 Time of Evaluation: 15:42 Nausea: No Vomiting: No Ifeoma Adhiakri MD Jan 19, 2018 15:42
--- NOTE | 2018-01-19 15:47 | Cardiac Electrophysiology PN ---
Assessment/Plan Assessment/Plan 1. Status post fall versus syncope. He is already ruled out for myocardial infarction. His vital signs have been stable. EF 65% 2. History of asthma, on albuterol. 3. Right hip fracture. S/P ORIF by Dr Clark today No cardiac events DW RN and Dr Laureano Subjective Subjective Underwent successful Right hip surgery today Objective Last 24 Hour Vital Signs Date Time Temp Pulse Resp B/P (MAP) Pulse Ox O2 Delivery O2 Flow Rate FiO2 01/19/18 12:00 97.3 86 18 102/54 95 Nasal Cannula 97.3 01/19/18 11:38 87 18 99 Nasal Cannula 3.0 32 01/19/18 11:29 88 16 96 Nasal Cannula 3.0 32 01/19/18 10:55 98.7 01/19/18 10:25 98.7 01/19/18 08:00 80 01/19/18 08:00 98.5 84 18 111/55 95 Nasal Cannula 98.5 01/19/18 06:51 94 20 95 Nasal Cannula 3.0 32 01/19/18 06:41 93 Nasal Cannula 3.0 32 01/19/18 06:41 Nasal Cannula 3.0 32 01/19/18 06:41 92 18 93 Nasal Cannula 3.0 32 01/19/18 04:18 98.7 01/19/18 04:00 98.7 90 23 101/47 93 Nasal Cannula 98.7 01/19/18 04:00 82 01/19/18 02:13 84 20 93 Nasal Cannula 3.0 32 01/19/18 02:03 90 22 93 Nasal Cannula 3.0 32 01/19/18 00:00 98.9 64 20 97/52 91 Nasal Cannula 98.9 01/19/18 00:00 74 01/18/18 21:52 97.7 01/18/18 20:00 85 01/18/18 20:00 97.7 79 24 93/55 98 Nasal Cannula 97.7 01/18/18 19:48 78 18 94 Nasal Cannula 3.0 32 01/18/18 19:39 Nasal Cannula 2.0 28 01/18/18 19:39 74 18 92 Nasal Cannula 2.0 28 01/18/18 19:37 93 Nasal Cannula 2.0 28 01/18/18 17:07 97.0 01/18/18 16:08 97.0 01/18/18 16:00 98.1 76 18 94/54 97 Nasal Cannula 98.1 01/18/18 16:00 70 Intake and Output 01/18/18 01/19/18 19:00 07:00 Intake Total 1790 ml Output Total 750 ml 500 ml Balance 1040 ml -500 ml Intake Oral 700 ml IV Total 1090 ml Output Urine Total 750 ml 500 ml Laboratory Tests Test 01/19/18 06:50 White Blood Count 8.0 K/UL (4.8-10.8) Red Blood Count 2.86 M/UL (4.70-6.10) L Hemoglobin 9.9 G/DL (14.2-18.0) L Hematocrit 28.5 % (42.0-52.0) L Mean Corpuscular Volume 100 FL (80-99) H Mean Corpuscular Hemoglobin 34.8 PG (27.0-31.0) H Mean Corpuscular Hemoglobin Concent 34.9 G/DL (32.0-36.0) Red Cell Distribution Width 12.6 % (11.6-14.8) Platelet Count 88 K/UL (150-450) L Mean Platelet Volume 5.9 FL (6.5-10.1) L Neutrophils (%) (Auto) % (45.0-75.0) Lymphocytes (%) (Auto) % (20.0-45.0) Monocytes (%) (Auto) % (1.0-10.0) Eosinophils (%) (Auto) % (0.0-3.0) Basophils (%) (Auto) % (0.0-2.0) Differential Total Cells Counted 100 Neutrophils % (Manual) 56 % (45-75) Lymphocytes % (Manual) 26 % (20-45) Monocytes % (Manual) 17 % (1-10) H Eosinophils % (Manual) 1 % (0-3) Basophils % (Manual) 0 % (0-2) Band Neutrophils 0 % (0-8) Platelet Estimate Decreased L Platelet Morphology Normal Hypochromasia 2+ Spherocytes 1+ Reticulocyte Count Pending Sodium Level 135 MMOL/L (136-145) L Potassium Level 4.8 MMOL/L (3.5-5.1) Chloride Level 104 MMOL/L (98-107) Carbon Dioxide Level 25 MMOL/L (21-32) Anion Gap 6 mmol/L (5-15) Blood Urea Nitrogen 29 mg/dL (7-18) H Creatinine 1.1 MG/DL (0.55-1.30) Estimat Glomerular Filtration Rate mL/min (>60) Glucose Level 107 MG/DL (74-106) H Calcium Level 8.9 MG/DL (8.5-10.1) Iron Level Pending Unsaturated Iron Binding Pending Ferritin Pending Folate Pending Hepatitis A IgM Antibody Pending Hepatitis B Surface Antigen Pending Hepatitis B Core IgM Antibody Pending Hepatitis C Antibody Pending HIV (1&2) Antibody Rapid Pending Objective HEAD AND NECK: Showed no JVD or carotid bruit. LUNGS: Clear. CARDIOVASCULAR: Shows regular S1 and S2 with no gallop or murmur. ABDOMEN: Soft. EXTREMITIES: Showed no pitting edema. S/P Right hip surgery KINZA MCCOY Jan 19, 2018 15:47
[2018-01-19 15:54] LABS: FERRITIN 209 NG/ML (8-388)
--- NOTE | 2018-01-19 16:04 | Diagnostic Imaging Report ---
Indication: Right hip fracture, pain, intraoperative imaging Technique: Intraoperative images Comparison: 01/17/2018 Findings: Intraoperative images document surgical repair of previously demonstrated right hip intertrochanteric fracture with medullary nail and compression screw Impression: Intraoperative imaging, as described
[2018-01-19 16:30] LABS: % IRON SATURATION 33 % (15-50); IRON 80 ug/dL (50-175); TOTAL IRON BINDING CAPACITY 245 ug/dL (250-450)
--- NOTE | 2018-01-19 17:00 | Diagnostic Imaging Report ---
Indication: Postoperative, hip fracture Technique: One view of the pelvis Comparison: 01/17/2018 Findings: Interim surgical repair of previously demonstrated right hip intertrochanteric fracture with medullary toshia and compression screw. Retained air from the surgical exposure is seen within the soft tissues. There is good anatomic alignment. Incidentally noted is an arterial stent in the left common iliac artery Impression: Postoperative right hip. No unusual features
[2018-01-19] MEDS ORDERED: Tubing IV Secondary IV ONE (17:53)
[2018-01-19] MEDS ORDERED: Docusate 100mg cap ORAL SCH ×2 (18:45→21:00)
[2018-01-19] MEDS ORDERED: Acetaminophen 650 MG SUPP RECTAL PRN ×2 (19:00)
[2018-01-19] MEDS ORDERED: Miralax 17gm pkt ORAL PRN (19:00)
[2018-01-19] MEDS ORDERED: TraZODone 50mg tab ORAL PRN (19:00)
[2018-01-19] MEDS ORDERED: Morphine Sulfate 4mg/ml Inj IVP PRN (19:00)
[2018-01-19] MEDS ORDERED: oxyCODONE HCL/Acetaminophen 5/325mg ORAL PRN (19:00)
[2018-01-19] MEDS ORDERED: D5 1/2NS w/KCl 20mEq 1,000 ML IV SCH ×2 (19:30)
[2018-01-19] MEDS ORDERED: Sodium Chloride 500ML 500 ML IV ONE (19:45)
[2018-01-19] MEDS ORDERED: Albuterol/Ipratropium 3ml neb HHN PRN (20:45)
[2018-01-19] MEDS: HYDROcodone/Acetamin 7.5/325 tab ORAL PRN (20:57)
[2018-01-19] MEDS ORDERED: Tamsulosin 0.4mg cap ORAL SCH (21:00)
--- NOTE | 2018-01-19 21:15 | Operative Note - Dictated ---
DATE OF OPERATION: 01/19/2018 PREOPERATIVE DIAGNOSIS: Right hip intertrochanteric fracture with comminution. POSTOPERATIVE: Right hip intertrochanteric fracture with comminution. PROCEDURE: Right hip open reduction and internal fixation using a short 125-degree gamma nail with proximal as well as distal screw fixation. SURGEON: Alec Laureano M.D. BUTTON CUTTING MACHINE OPERATOR: Darlene Pederson PA-C. ANESTHESIOLOGIST: Dr. Pina. ANESTHESIA: General LMA anesthesia. ESTIMATED BLOOD LOSS: Less than 100 mL. COMPLICATIONS: None. BRIEF HISTORY: The patient is a pleasant 72-year-old gentleman who was admitted due to a mechanical fall and right hip fracture. After full discussion of risks and benefits of the surgery and complications associated with it including infection, bleeding, neurovascular complication, possibility of malunion, possibility of nonunion, possibility of hardware failure, possibility of hardware pullout, and other complications that may arise as well as nonunion, malunion, and need for further surgery and conversion to hemiarthroplasty, he opted for surgical treatment as described above. OPERATIVE PROCEDURE: The patient was brought to the operating room and was placed on operative table. All pressure points were well padded. General LMA anesthesia was induced. The patient was placed on a fracture table and the right leg was placed in traction and the left leg in well-leg echeverria. All pressure points were well padded. The right hip was then reduced and the image was brought in. Using an image intensifier, the fracture was reduced near-anatomically. Once this was completed, the right hip and right leg was prepped and draped in usual sterile fashion. Standard 3-cm incision was made proximal to the greater trochanter. The gluteal fascia was opened. The greater trochanter was then palpated and a guidewire was placed into the greater trochanter into the diaphyseal region across the fracture site. The opening reamer was used to open the entry hole and a 125-degree short gamma nail was then placed in without any complication. At this point, a guidepin was placed through the lateral cortex of the femur into the neck, into the head. This was checked on AP and lateral, and was in central-central position. Measurements were made and 100-mm lag screw appeared to be the right size. Lag screw was then reamed and placed in without any complications. At this point, a locking screw was then locked in on top of the lag screw and it was backed off by half a turn. At this point, using a guide, a distal 35-mm screw was placed in for rotational stability. Once this was completed, the position of all implants was checked. The fracture was reduced anatomically. The hardware was in excellent position on AP as well as lateral views. At this point, all wounds were thoroughly irrigated using copious amount of fluid. Gluteal fascia was closed using #1 Vicryl suture. Subcutaneous tissue was closed using 2-0 Vicryl suture. Skin was closed was closed using 3-0 Monocryl suture. Sterile dressing was applied. The patient was taken to recovery room in stable condition. All lap counts and instrument counts were correct. Alec Laureano M.D. DR: Ariadna JOB#: [id number] CC:
[2018-01-19] MEDS: ceFAZolin sod 2 GM in D5W 110 ML IV SCH (21:56)
--- NOTE | 2018-01-19 23:55 | General Progress Note ---
Assessment/Plan Problem List: (1) Fracture of right hip ICD Codes: S72.001A - Fracture of unspecified part of neck of right femur, initial encounter for closed fracture SNOMED: 050638593 (2) Syncope ICD Codes: R55 - Syncope and collapse SNOMED: 777965476 (3) MARYANNE (acute kidney injury) ICD Codes: N17.9 - Acute kidney failure, unspecified SNOMED: 83324176 (4) Hyponatremia ICD Codes: E87.1 - Hypo-osmolality and hyponatremia SNOMED: 49284828 (5) CAD (coronary artery disease) ICD Codes: I25.10 - Atherosclerotic heart disease of [place] coronary artery without angina pectoris SNOMED: 23339628 (6) COPD (chronic obstructive pulmonary disease) ICD Codes: J44.9 - Chronic obstructive pulmonary disease, unspecified SNOMED: 66750729 (7) HTN (hypertension) ICD Codes: I10 - Essential (primary) hypertension SNOMED: 99139526 (8) HLD (hyperlipidemia) ICD Codes: E78.5 - Hyperlipidemia, unspecified SNOMED: 47528810 (9) BPH (benign prostatic hyperplasia) ICD Codes: N40.0 - Benign prostatic hyperplasia without lower urinary tract symptoms SNOMED: 253395671 (10) Tobacco abuse ICD Codes: Z72.0 - Tobacco use SNOMED: 290952314 (11) PVD (peripheral vascular disease) ICD Codes: I73.9 - Peripheral vascular disease, unspecified SNOMED: 015491410 (12) Alcoholic liver disease Assessment & Plan: Cirrhosis ICD Codes: K70.9 - Alcoholic liver disease, unspecified SNOMED: 86270298 (13) Acute blood loss anemia ICD Codes: D62 - Acute posthemorrhagic anemia SNOMED: 343569334 Status: stable Assessment/Plan Labs with evidence of dehydration. Syncope may be 2/2 orthostatic hypotension Ortho consulted [facility]B RLE Plan for ORIF today, NPO since MN Pain control, bowel regimen Cardiology consulted Trop neg, TTE--EF wnl Per cardiology, pt is cleared to proceed to OR F/u carotid duplex IVFs for MARYANNE Cont home meds but hold home lasix and aldactone for now given MARYANNE DVT Prophylaxis: SCD Code Status: Full Hospital Classification Declaration: Based on this initial evaluation, and depending on the patient's clinical course, I anticipate that this patient will require hospitalization for 1-2 days for R hip fracture, syncope, MARYANNE and close respiratory/hemodynamic monitoring. Disposition: Once the patient is stable to leave the hospital, I anticipate the patient will likely be discharged to the following environment: SNF vs ARU Discussed with patient/family, nursing staff, SW/CM, ortho, cardiology regarding clinical status, treatment course, and disposition planning. Time of note may not reflect time of encounter. Subjective Date patient seen: Jan 19, 2018 Time patient seen: 11:00 ROS Limited/Unobtainable: No Constitutional: Reports: no symptoms HEENT: Reports: no symptoms Cardiovascular: Reports: no symptoms Respiratory: Reports: no symptoms Gastrointestinal/Abdominal: Reports: no symptoms Genitourinary: Reports: no symptoms Neurologic/Psychiatric: Reports: no symptoms Endocrine: Reports: no symptoms Hematologic/Lymphatic: Reports: no symptoms Allergies: Coded Allergies: No Known Allergies (Unverified , 01/17/18) Subjective No acute o/n events Awaiting OR for ORIF today per ortho Pain controlled. Denies f/c, n/v, d/c, chest pain, SOB, abd pain Objective Last 24 Hour Vital Signs Date Time Temp Pulse Resp B/P (MAP) Pulse Ox O2 Delivery O2 Flow Rate FiO2 01/19/18 20:16 97 18 99 Nasal Cannula 3.0 32 01/19/18 20:06 98 16 98 Nasal Cannula 3.0 32 01/19/18 20:05 98 Nasal Cannula 3.0 32 01/19/18 20:05 Nasal Cannula 3.0 32 01/19/18 19:52 97.4 96 18 100/46 98 Nasal Cannula 3.0 97.4 01/19/18 18:39 98.8 96 21 102/59 97 98.8 01/19/18 18:16 99.5 95 20 108/40 98 Nasal Cannula 3.0 99.5 01/19/18 18:09 92 20 96/40 98 Nasal Cannula 3.0 01/19/18 17:50 87 20 93/53 98 Nasal Cannula 3.0 01/19/18 17:45 93 20 88/58 96 Nasal Cannula 3.0 01/19/18 17:30 92 20 118/66 98 Nasal Cannula 3.0 01/19/18 17:13 87 20 90/42 98 Nasal Cannula 3.0 01/19/18 17:00 82 20 85/41 99 Nasal Cannula 3.0 01/19/18 16:45 82 20 90/41 100 Simple Mask 8.0 01/19/18 16:30 82 20 92/41 100 Simple Mask 8.0 01/19/18 16:15 82 20 100/41 100 Simple Mask 8.0 01/19/18 16:00 81 20 99/51 100 Simple Mask 8.0 01/19/18 15:55 79 20 98/41 100 Simple Mask 8.0 01/19/18 15:45 79 20 99/42 100 Simple Mask 8.0 01/19/18 15:40 97.5 80 20 100/49 100 Simple Mask 8.0 97.5 01/19/18 12:00 97.3 86 18 102/54 95 Nasal Cannula 97.3 01/19/18 12:00 96 01/19/18 11:38 87 18 99 Nasal Cannula 3.0 32 01/19/18 11:29 88 16 96 Nasal Cannula 3.0 32 01/19/18 10:55 98.7 01/19/18 10:25 98.7 01/19/18 08:00 80 01/19/18 08:00 98.5 84 18 111/55 95 Nasal Cannula 98.5 01/19/18 06:51 94 20 95 Nasal Cannula 3.0 32 01/19/18 06:41 93 Nasal Cannula 3.0 32 01/19/18 06:41 Nasal Cannula 3.0 32 01/19/18 06:41 92 18 93 Nasal Cannula 3.0 32 01/19/18 04:18 98.7 01/19/18 04:00 98.7 90 23 101/47 93 Nasal Cannula 98.7 01/19/18 04:00 82 01/19/18 02:13 84 20 93 Nasal Cannula 3.0 32 01/19/18 02:03 90 22 93 Nasal Cannula 3.0 32 01/19/18 00:00 98.9 64 20 97/52 91 Nasal Cannula 98.9 01/19/18 00:00 74 Intake and Output 01/18/18 01/19/18 19:00 07:00 Intake Total 1790 ml Output Total 750 ml 500 ml Balance 1040 ml -500 ml Intake Oral 700 ml IV Total 1090 ml Output Urine Total 750 ml 500 ml Laboratory Tests 01/19/18 06:50: White Blood Count 8.0, Red Blood Count 2.86L, Hemoglobin 9.9L, Hematocrit 28.5L , Mean Corpuscular Volume 100H, Mean Corpuscular Hemoglobin 34.8H, Mean Corpuscular Hemoglobin Concent 34.9, Red Cell Distribution Width 12.6, Platelet Count 88L, Mean Platelet Volume 5.9L, Neutrophils (%) (Auto) , Lymphocytes (%) ( Auto) , Monocytes (%) (Auto) , Eosinophils (%) (Auto) , Basophils (%) (Auto) , Differential Total Cells Counted 100, Neutrophils % (Manual) 56, Lymphocytes % ( Manual) 26, Monocytes % (Manual) 17H, Eosinophils % (Manual) 1, Basophils % ( Manual) 0, Band Neutrophils 0, Platelet Estimate DecreasedL, Platelet Morphology Normal, Hypochromasia 2+, Spherocytes 1+, Reticulocyte Count 1.0, Sodium Level 135L, Potassium Level 4.8, Chloride Level 104, Carbon Dioxide Level 25, Anion Gap 6, Blood Urea Nitrogen 29H, Creatinine 1.1, Estimat Glomerular Filtration Rate , Glucose Level 107H, Calcium Level 8.9, Iron Level 80, Total Iron Binding Capacity 245L, Percent Iron Saturation 33, Unsaturated Iron Binding 165, Ferritin 209, Folate 47.5, Hepatitis A IgM Antibody [Pending] , Hepatitis B Surface Antigen [Pending], Hepatitis B Core IgM Antibody [Pending] , Hepatitis C Antibody [Pending], HIV (1&2) Antibody Rapid Negative Height (Feet): 5 Height (Inches): 6.00 Weight (Pounds): 135 Objective General: alert, cooperative, no distress, appears stated age Head: normocephalic, without obvious abnormality, atraumatic Eyes: conjunctivae/corneas clear. PERRL, EOM's intact Throat: lips, mucosa, and tongue normal. Dry MM Neck: supple, symmetrical, trachea midline, and no JVD Lungs: clear to auscultation bilaterally Heart: regular rate and rhythm, S1, S2 normal, no murmur, click, rub or gallop Abdomen: soft, non-tender, non-distended, bowel sounds normal Extremities: +R hip TTP w/ ROM limited 2/2 pain, no cyanosis or edema Pulses: 2+ and symmetric Skin: skin color, texture, turgor normal; +abrasions on extremities Neurologic: grossly normal, no focal deficits Amor Perdomo M.D. Jan 19, 2018 23:55
[2018-01-20] VITALS (9 sets, daily range): BP systolic 84–109; BP diastolic 47–74
[2018-01-20] MEDS: Albuterol/Ipratropium 3ml neb HHN SCH ×4 (01:40→19:00)
--- NOTE | 2018-01-20 02:00 | Consultation ---
DATE OF CONSULTATION: 01/18/2018 NOTE: POOR AUDIO HEMATOLOGY/ONCOLOGY CONSULTATION CONSULTING PHYSICIAN: Arvin Cho M.D. REQUESTING PHYSICIANS: 1. Amor Perdomo M.D. 2. Albertina Rawls M.D. REASON FOR CONSULTATION: Evaluation of anemia. IDENTIFYING DATA: Dear Dr. Chinchilla, The patient is a pleasant 72-year-old male with a past medical history significant for BPH, COPD, hypertension, possible history of [place], history of tobacco use in the past, who presented right hip pain. He fell in the bathroom. He was lightheaded, spinning, and had brief loss of consciousness. developed anemia. Upon presentation to the ER, found to have a right hip fracture. The patient is being seen by Dr. Alec Laureano for further evaluation and treatment with potential surgical intervention. Hematology Service was consulted for preoperative clearance in addition to anemia evaluation. PAST MEDICAL HISTORY: Hypertension. PAST SURGICAL HISTORY: None available. MEDICATIONS: Reviewed. ALLERGIES: No known drug allergies that are noted. REVIEW OF SYSTEMS: CONSTITUTIONAL: No fever, chills, or night sweats. SKIN: No rashes, bumps, or itching. HEENT: No headache, hearing or vision changes. BREASTS: No lumps, pain, or discharge. PULMONARY: No cough, sputum, or shortness of breath. GASTROINTESTINAL: No nausea, vomiting, or diarrhea. GENITOURINARY: No dysuria, frequency, or urgency. MUSCULOSKELETAL: . PHYSICAL EXAMINATION: VITAL SIGNS: Reviewed. GENERAL: No acute distress. PULMONARY: Decreased breath sounds CARDIOVASCULAR: Regular rate. No S3 or S4. ABDOMEN: Soft, nontender, and nondistended. EXTREMITIES: . LABORATORY DATA: WBC 8.4, hemoglobin 11.4, hematocrit 32, and platelet count 100,000, which has decreased. BUN of 29 and creatinine 1.1. ASSESSMENT AND RECOMMENDATIONS: 1. Thrombocytopenia. Okay to continue with surgery if platelets goes . Okay to continue Lovenox daily for prophylaxis. hepatitis panel and human immunodeficiency virus. 2. Anemia due to underlying chronic disease. Continue to closely monitor. Anemia workup has been ordered. Results are at this time pending. 3. Coagulopathy, potentially secondary to liver disease. Obtain ultrasound of the abdomen. 4. Anemia due to orthopedic procedure, currently downtrended, potentially secondary to hemodilution. Again, continue to closely monitor. Evaluate if the patient requires iron. 5. Syncope, probably due to anemia versus vertigo versus other causes. 6. Tobacco use. 7. Alcoholic liver disease. 8. History of cirrhosis. I appreciate the consultation. Arvin Cho M.D. DR: Teri JOB#: [id number] CC:
[2018-01-20] MEDS: ceFAZolin sod 2 GM in D5W 110 ML IV SCH (06:00)
[2018-01-20 07:27] LABS: ANION GAP 6 mmol/L (5-15); BLOOD UREA NITROGEN 24 mg/dL (7-18); CALCIUM 8.1 MG/DL (8.5-10.1); CARBON DIOXIDE 23 MMOL/L (21-32); CHLORIDE 106 MMOL/L (98-107); POTASSIUM 4.3 MMOL/L (3.5-5.1); SODIUM 135 MMOL/L (136-145)
[2018-01-20 08:19] LABS: HEMATOCRIT 20.4 % (42.0-52.0); HEMOGLOBIN 7.2 G/DL (14.2-18.0); MEAN CORPUSCULAR VOLUME 100 FL (80-99); PLATELET COUNT 92 K/UL (150-450); RED BLOOD COUNT 2.05 M/UL (4.70-6.10); RED CELL DISTRIBUTION WIDTH 12.3 % (11.6-14.8); WHITE BLOOD COUNT 8.6 K/UL (4.8-10.8)
[2018-01-20 08:29] LABS: ANION GAP 7 mmol/L (5-15); BLOOD UREA NITROGEN 25 mg/dL (7-18); CALCIUM 8.1 MG/DL (8.5-10.1); CARBON DIOXIDE 23 MMOL/L (21-32); CHLORIDE 106 MMOL/L (98-107); PHOSPHORUS 2.7 MG/DL (2.5-4.9); POTASSIUM 4.4 MMOL/L (3.5-5.1); SODIUM 136 MMOL/L (136-145)
[2018-01-20] MEDS: Docusate 100mg cap ORAL SCH ×3 (08:37→18:14)
[2018-01-20] MEDS: HYDROcodone/Acetamin 7.5/325 tab ORAL PRN (08:37)
[2018-01-20] MEDS ORDERED: Aspirin EC 81mg tab ORAL SCH (09:00)
[2018-01-20] MEDS ORDERED: Enoxaparin 30mg Inj SUBQ SCH ×2 (09:00)
[2018-01-20] MEDS ORDERED: celeBREX 200mg Cap **SURGERY PATIENTS ONLY ORAL SCH ×2 (09:00)
[2018-01-20] MEDS ORDERED: Tubing IV Secondary IV ONE (11:00)
[2018-01-20] MEDS ORDERED: NS 500ML ONE (11:00)
--- NOTE | 2018-01-20 11:16 | Diagnostic Imaging Report ---
Indication: Abdominal pain Technique: Ultrasound of the abdomen. Comparison: None Findings: Study is suboptimal. Liver: A large portion of the liver is grossly normal. Much of the liver is obscured including the dome. Gallbladder: Not fully distended. Gallbladder wall is difficult to measure but may be minimally thickened. Common bile duct: Not well-visualized. Pancreas: The visualized portion of pancreas is normal in echogenicity. There are no masses. The distal body and tail are obscured. Kidneys: The kidneys are normal in size and echogenicity. There is no hydronephrosis. Spleen: The spleen is normal in size and echogenicity. Aorta: The visualized portion of the aorta is normal in caliber. The distal aorta is obscured. IVC: The demonstrated portion of the inferior vena cava is normal. Impression: Suboptimal examination. No gross abnormality in the visualized structures.
--- NOTE | 2018-01-20 12:18 | General Progress Note ---
Assessment/Plan Problem List: (1) Acute blood loss anemia ICD Codes: D62 - Acute posthemorrhagic anemia SNOMED: 040071653 (2) MARYANNE (acute kidney injury) ICD Codes: N17.9 - Acute kidney failure, unspecified SNOMED: 05114344 (3) Fall ICD Codes: W19.XXXA - Unspecified fall, initial encounter SNOMED: 2981381, 860057640 Qualifiers: Qualified Codes: W19.XXXA - Unspecified fall, initial encounter (4) Right hip pain ICD Codes: M25.551 - Pain in right hip SNOMED: 37536401 (5) Closed right hip fracture ICD Codes: S72.001A - Fracture of unspecified part of neck of right femur, initial encounter for closed fracture SNOMED: 720629896 Qualifiers: Qualified Codes: S72.001A - Fracture of unspecified part of neck of right femur, initial encounter for closed fracture (6) COPD (chronic obstructive pulmonary disease) ICD Codes: J44.9 - Chronic obstructive pulmonary disease, unspecified SNOMED: 83038710 (7) CAD (coronary artery disease) ICD Codes: I25.10 - Atherosclerotic heart disease of [place] coronary artery without angina pectoris SNOMED: 84298170 (8) Tobacco abuse ICD Codes: Z72.0 - Tobacco use SNOMED: 100251179 (9) HTN (hypertension) ICD Codes: I10 - Essential (primary) hypertension SNOMED: 39020893 (10) HLD (hyperlipidemia) ICD Codes: E78.5 - Hyperlipidemia, unspecified SNOMED: 79997254 (11) BPH (benign prostatic hyperplasia) ICD Codes: N40.0 - Benign prostatic hyperplasia without lower urinary tract symptoms SNOMED: 759707128 (12) Fracture of right hip ICD Codes: S72.001A - Fracture of unspecified part of neck of right femur, initial encounter for closed fracture SNOMED: 077302690 (13) Syncope ICD Codes: R55 - Syncope and collapse SNOMED: 990873700 (14) PVD (peripheral vascular disease) ICD Codes: I73.9 - Peripheral vascular disease, unspecified SNOMED: 573307353 (15) Hyponatremia ICD Codes: E87.1 - Hypo-osmolality and hyponatremia SNOMED: 84602497 (16) Alcoholic liver disease ICD Codes: K70.9 - Alcoholic liver disease, unspecified SNOMED: 57115186 (17) [facility] Status: stable Assessment/Plan Labs with evidence of dehydration. Syncope may be 2/2 orthostatic hypotension 1 L NS bolus STAT ordered for hypotension and Hgb 7.2. Transfuse prn Hgb < 7 or symptomatic s/p R ORIF, POD#1 lovenox 30mg subq x 10 days Ortho consulted [facility] RLE PT eval and treat Pain control, bowel regimen Cardiology consulted Trop neg, TTE--EF wnl 65% Per cardiology, pt is cleared to proceed to OR F/u carotid duplex F/u abdominal U/S IVFs for MARYANNE Cont home meds but hold home lasix and aldactone for now given MARYANNE DVT Prophylaxis: SCD Code Status: Full Hospital Classification Declaration: Based on this initial evaluation, and depending on the patient's clinical course, I anticipate that this patient will require hospitalization for 1-2 days for R hip fracture, syncope, MARYANNE and close respiratory/hemodynamic monitoring. Disposition: Once the patient is stable to leave the hospital, I anticipate the patient will likely be discharged to the following environment: SNF vs ARU Discussed with patient/family, nursing staff, SW/CM, ortho, cardiology regarding clinical status, treatment course, and disposition planning. Time of note may not reflect time of encounter. Subjective Date patient seen: Jan 20, 2018 Allergies: Coded Allergies: No Known Allergies (Unverified , 01/17/18) Subjective - s/p right ORIF POD#1 - hypotensive to systolic 90s today, Hgb dropped to 7.2. denies dizziness, chest pain, sob, palpitations, n/v, abdominal pain - pain well controlled - denies flatus - afebrile Objective Last 24 Hour Vital Signs Date Time Temp Pulse Resp B/P (MAP) Pulse Ox O2 Delivery O2 Flow Rate FiO2 01/20/18 10:01 98.3 01/20/18 08:37 98.3 01/20/18 08:00 98.3 99 18 91/55 98 Nasal Cannula 3.0 98.3 01/20/18 07:26 90 18 99 Nasal Cannula 3.0 32 01/20/18 07:20 20 84/53 97 Nasal Cannula 3.0 01/20/18 07:16 Nasal Cannula 3.0 32 01/20/18 07:16 99 Nasal Cannula 3.0 32 01/20/18 07:16 91 16 99 Nasal Cannula 3.0 32 01/20/18 03:24 97.8 103 16 105/51 98 Nasal Cannula 3.0 97.8 01/20/18 01:48 99 18 99 Nasal Cannula 3.0 32 01/20/18 01:41 102 16 98 Nasal Cannula 3.0 32 01/20/18 00:16 98.0 103 17 99/51 95 Nasal Cannula 3.0 98.0 01/19/18 20:16 97 18 99 Nasal Cannula 3.0 32 01/19/18 20:06 98 16 98 Nasal Cannula 3.0 32 01/19/18 20:05 98 Nasal Cannula 3.0 32 01/19/18 20:05 Nasal Cannula 3.0 32 01/19/18 19:52 97.4 96 18 100/46 98 Nasal Cannula 3.0 97.4 01/19/18 18:39 98.8 96 21 102/59 97 98.8 01/19/18 18:16 99.5 95 20 108/40 98 Nasal Cannula 3.0 99.5 01/19/18 18:09 92 20 96/40 98 Nasal Cannula 3.0 01/19/18 17:50 87 20 93/53 98 Nasal Cannula 3.0 01/19/18 17:45 93 20 88/58 96 Nasal Cannula 3.0 01/19/18 17:30 92 20 118/66 98 Nasal Cannula 3.0 01/19/18 17:13 87 20 90/42 98 Nasal Cannula 3.0 01/19/18 17:00 82 20 85/41 99 Nasal Cannula 3.0 01/19/18 16:45 82 20 90/41 100 Simple Mask 8.0 01/19/18 16:30 82 20 92/41 100 Simple Mask 8.0 01/19/18 16:15 82 20 100/41 100 Simple Mask 8.0 01/19/18 16:00 81 20 99/51 100 Simple Mask 8.0 01/19/18 15:55 79 20 98/41 100 Simple Mask 8.0 01/19/18 15:45 79 20 99/42 100 Simple Mask 8.0 01/19/18 15:40 97.5 80 20 100/49 100 Simple Mask 8.0 97.5 Intake and Output 01/19/18 01/20/18 19:00 07:00 Intake Total 1900 ml 300 ml Output Total 1800 ml 750 ml Balance 100 ml -450 ml Intake Oral 300 ml IV Total 1900 ml Output Urine Total 1800 ml 750 ml Laboratory Tests 01/20/18 06:40: White Blood Count 8.6, Red Blood Count 2.05L, Hemoglobin 7.2L, Hematocrit 20.4L , Mean Corpuscular Volume 100H, Mean Corpuscular Hemoglobin 34.9H, Mean Corpuscular Hemoglobin Concent 35.1, Red Cell Distribution Width 12.3, Platelet Count 92L, Mean Platelet Volume 6.0L, Neutrophils (%) (Auto) , Lymphocytes (%) ( Auto) , Monocytes (%) (Auto) , Eosinophils (%) (Auto) , Basophils (%) (Auto) , Differential Total Cells Counted 100, Neutrophils % (Manual) 60, Lymphocytes % ( Manual) 25, Monocytes % (Manual) 12H, Eosinophils % (Manual) 3, Basophils % ( Manual) 0, Band Neutrophils 0, Platelet Estimate DecreasedL, Platelet Morphology Normal, Hypochromasia 1+, Macrocytosis 1+, Sodium Level 136, Potassium Level 4.4, Chloride Level 106, Carbon Dioxide Level 23, Anion Gap 7, Blood Urea Nitrogen 25H, Creatinine 1.0, Estimat Glomerular Filtration Rate , Glucose Level 124H, Calcium Level 8.1L, Phosphorus Level 2.7, Magnesium Level 1.9 Height (Feet): 5 Height (Inches): 6.00 Weight (Pounds): 135 General Appearance: no apparent distress, alert EENT: PERRL/EOMI, normal ENT inspection Neck: non-tender, normal alignment, supple Cardiovascular: normal peripheral pulses, normal rate, regular rhythm Respiratory/Chest: chest wall non-tender, lungs clear, normal breath sounds Abdomen: normal bowel sounds, non tender, soft Pelvis: other - right hip dressing Extremities: normal range of motion, non-tender Neurologic: vascular manager II-XII grossly normal, no motor/sensory deficits, alert, oriented x 3 Skin: warm/dry Isabel Skinner N.P. Jan 20, 2018 12:18
[2018-01-20] MEDS ORDERED: Milk of Magnesia 30ml Ud ORAL PRN ×2 (13:45→17:30)
--- NOTE | 2018-01-20 14:51 | Cardiac Electrophysiology PN ---
Assessment/Plan Assessment/Plan 1. Status post fall versus syncope. Ruled out for myocardial infarction. EF 65 % 2. History of asthma, on albuterol. 3. Right hip fracture. S/P ORIF by Dr Clark. No cardiac events 4. Hypotension. Lowest 88. Got better with IV fluid now 90/58 5. Anemia Hb dropped form 9 to 7.2. Repeat CBC pending. Likely needs transfusion. DEVONTE RN and Nehemiahancearacelis at bedside DEVONTE Chinchilla Subjective Subjective Comfortable in NAD. Fiancee at bedside.S/P Right hip surgery yesterday Objective Last 24 Hour Vital Signs Date Time Temp Pulse Resp B/P (MAP) Pulse Ox O2 Delivery O2 Flow Rate FiO2 01/20/18 12:58 92 20 99 Nasal Cannula 3.0 32 01/20/18 12:47 90 18 98 Nasal Cannula 3.0 32 01/20/18 10:01 98.3 01/20/18 08:37 98.3 01/20/18 08:00 98.3 99 18 91/55 98 Nasal Cannula 3.0 98.3 01/20/18 07:26 90 18 99 Nasal Cannula 3.0 32 01/20/18 07:20 20 84/53 97 Nasal Cannula 3.0 01/20/18 07:16 Nasal Cannula 3.0 32 01/20/18 07:16 99 Nasal Cannula 3.0 32 01/20/18 07:16 91 16 99 Nasal Cannula 3.0 32 01/20/18 03:24 97.8 103 16 105/51 98 Nasal Cannula 3.0 97.8 01/20/18 01:48 99 18 99 Nasal Cannula 3.0 32 01/20/18 01:41 102 16 98 Nasal Cannula 3.0 32 01/20/18 00:16 98.0 103 17 99/51 95 Nasal Cannula 3.0 98.0 01/19/18 20:16 97 18 99 Nasal Cannula 3.0 32 01/19/18 20:06 98 16 98 Nasal Cannula 3.0 32 01/19/18 20:05 98 Nasal Cannula 3.0 32 01/19/18 20:05 Nasal Cannula 3.0 32 01/19/18 19:52 97.4 96 18 100/46 98 Nasal Cannula 3.0 97.4 01/19/18 18:39 98.8 96 21 102/59 97 98.8 01/19/18 18:16 99.5 95 20 108/40 98 Nasal Cannula 3.0 99.5 01/19/18 18:09 92 20 96/40 98 Nasal Cannula 3.0 01/19/18 17:50 87 20 93/53 98 Nasal Cannula 3.0 01/19/18 17:45 93 20 88/58 96 Nasal Cannula 3.0 01/19/18 17:30 92 20 118/66 98 Nasal Cannula 3.0 01/19/18 17:13 87 20 90/42 98 Nasal Cannula 3.0 01/19/18 17:00 82 20 85/41 99 Nasal Cannula 3.0 01/19/18 16:45 82 20 90/41 100 Simple Mask 8.0 01/19/18 16:30 82 20 92/41 100 Simple Mask 8.0 01/19/18 16:15 82 20 100/41 100 Simple Mask 8.0 01/19/18 16:00 81 20 99/51 100 Simple Mask 8.0 01/19/18 15:55 79 20 98/41 100 Simple Mask 8.0 01/19/18 15:45 79 20 99/42 100 Simple Mask 8.0 01/19/18 15:40 97.5 80 20 100/49 100 Simple Mask 8.0 97.5 Intake and Output 01/19/18 01/20/18 19:00 07:00 Intake Total 1900 ml 300 ml Output Total 1800 ml 750 ml Balance 100 ml -450 ml Intake Oral 300 ml IV Total 1900 ml Output Urine Total 1800 ml 750 ml Laboratory Tests Test 01/20/18 06:40 White Blood Count 8.6 K/UL (4.8-10.8) Red Blood Count 2.05 M/UL (4.70-6.10) L Hemoglobin 7.2 G/DL (14.2-18.0) L Hematocrit 20.4 % (42.0-52.0) L Mean Corpuscular Volume 100 FL (80-99) H Mean Corpuscular Hemoglobin 34.9 PG (27.0-31.0) H Mean Corpuscular Hemoglobin Concent 35.1 G/DL (32.0-36.0) Red Cell Distribution Width 12.3 % (11.6-14.8) Platelet Count 92 K/UL (150-450) L Mean Platelet Volume 6.0 FL (6.5-10.1) L Neutrophils (%) (Auto) % (45.0-75.0) Lymphocytes (%) (Auto) % (20.0-45.0) Monocytes (%) (Auto) % (1.0-10.0) Eosinophils (%) (Auto) % (0.0-3.0) Basophils (%) (Auto) % (0.0-2.0) Differential Total Cells Counted 100 Neutrophils % (Manual) 60 % (45-75) Lymphocytes % (Manual) 25 % (20-45) Monocytes % (Manual) 12 % (1-10) H Eosinophils % (Manual) 3 % (0-3) Basophils % (Manual) 0 % (0-2) Band Neutrophils 0 % (0-8) Platelet Estimate Decreased L Platelet Morphology Normal Hypochromasia 1+ Macrocytosis 1+ Sodium Level 136 MMOL/L (136-145) Potassium Level 4.4 MMOL/L (3.5-5.1) Chloride Level 106 MMOL/L (98-107) Carbon Dioxide Level 23 MMOL/L (21-32) Anion Gap 7 mmol/L (5-15) Blood Urea Nitrogen 25 mg/dL (7-18) H Creatinine 1.0 MG/DL (0.55-1.30) Estimat Glomerular Filtration Rate mL/min (>60) Glucose Level 124 MG/DL (74-106) H Calcium Level 8.1 MG/DL (8.5-10.1) L Phosphorus Level 2.7 MG/DL (2.5-4.9) Magnesium Level 1.9 MG/DL (1.8-2.4) Microbiology Date/Time Source Procedure Growth Status 01/17/18 21:21 Nasal Nares MRSA Culture - Final NO METHICILLIN RESISTANT STAPH AUREUS... Complete 01/17/18 21:21 Rectum VRE Culture - Final NO VANCOMYCIN RESISTANT ENTEROCOCCUS ... Complete Objective HEAD AND NECK: No JVD or carotid bruit. LUNGS: Clear. CARDIOVASCULAR: Regular S1 and S2 with no gallop or murmur. ABDOMEN: Soft. EXTREMITIES: Showed no pitting edema. S/P Right hip surgery KINZA MCCOY Jan 20, 2018 14:51
--- NOTE | 2018-01-20 16:44 | Orthopedic Progress Note ---
Orthopedic - Progress Note Subjective Symptoms: c/o post-op hip pain, other - hypotensive and low H&H. transfered to [facility]. prbcs given Objective Vital Signs Laboratory Tests Test 01/20/18 06:40 White Blood Count 8.6 K/UL (4.8-10.8) Red Blood Count 2.05 M/UL (4.70-6.10) L Hemoglobin 7.2 G/DL (14.2-18.0) L Hematocrit 20.4 % (42.0-52.0) L Mean Corpuscular Volume 100 FL (80-99) H Mean Corpuscular Hemoglobin 34.9 PG (27.0-31.0) H Mean Corpuscular Hemoglobin Concent 35.1 G/DL (32.0-36.0) Red Cell Distribution Width 12.3 % (11.6-14.8) Platelet Count 92 K/UL (150-450) L Mean Platelet Volume 6.0 FL (6.5-10.1) L Neutrophils (%) (Auto) % (45.0-75.0) Lymphocytes (%) (Auto) % (20.0-45.0) Monocytes (%) (Auto) % (1.0-10.0) Eosinophils (%) (Auto) % (0.0-3.0) Basophils (%) (Auto) % (0.0-2.0) Differential Total Cells Counted 100 Neutrophils % (Manual) 60 % (45-75) Lymphocytes % (Manual) 25 % (20-45) Monocytes % (Manual) 12 % (1-10) H Eosinophils % (Manual) 3 % (0-3) Basophils % (Manual) 0 % (0-2) Band Neutrophils 0 % (0-8) Platelet Estimate Decreased L Platelet Morphology Normal Hypochromasia 1+ Macrocytosis 1+ Sodium Level 136 MMOL/L (136-145) Potassium Level 4.4 MMOL/L (3.5-5.1) Chloride Level 106 MMOL/L (98-107) Carbon Dioxide Level 23 MMOL/L (21-32) Anion Gap 7 mmol/L (5-15) Blood Urea Nitrogen 25 mg/dL (7-18) H Creatinine 1.0 MG/DL (0.55-1.30) Estimat Glomerular Filtration Rate mL/min (>60) Glucose Level 124 MG/DL (74-106) H Calcium Level 8.1 MG/DL (8.5-10.1) L Phosphorus Level 2.7 MG/DL (2.5-4.9) Magnesium Level 1.9 MG/DL (1.8-2.4) Last 24 Hour Vital Signs Date Time Temp Pulse Resp B/P (MAP) Pulse Ox O2 Delivery O2 Flow Rate FiO2 01/20/18 14:56 97 18 98/51 98 Nasal Cannula 3.0 01/20/18 12:58 92 20 99 Nasal Cannula 3.0 32 01/20/18 12:47 90 18 98 Nasal Cannula 3.0 32 01/20/18 12:00 98.5 98 17 99/47 98 Nasal Cannula 3.0 98.5 01/20/18 10:30 97.9 98 88/47 97.9 01/20/18 10:01 98.3 01/20/18 08:37 98.3 01/20/18 08:00 98.3 99 18 91/55 98 Nasal Cannula 3.0 98.3 01/20/18 07:26 90 18 99 Nasal Cannula 3.0 32 01/20/18 07:20 20 84/53 97 Nasal Cannula 3.0 01/20/18 07:16 Nasal Cannula 3.0 32 01/20/18 07:16 99 Nasal Cannula 3.0 32 01/20/18 07:16 91 16 99 Nasal Cannula 3.0 32 01/20/18 03:24 97.8 103 16 105/51 98 Nasal Cannula 3.0 97.8 01/20/18 01:48 99 18 99 Nasal Cannula 3.0 32 01/20/18 01:41 102 16 98 Nasal Cannula 3.0 32 01/20/18 00:16 98.0 103 17 99/51 95 Nasal Cannula 3.0 98.0 01/19/18 20:16 97 18 99 Nasal Cannula 3.0 32 01/19/18 20:06 98 16 98 Nasal Cannula 3.0 32 01/19/18 20:05 98 Nasal Cannula 3.0 32 01/19/18 20:05 Nasal Cannula 3.0 32 01/19/18 19:52 97.4 96 18 100/46 98 Nasal Cannula 3.0 97.4 01/19/18 18:39 98.8 96 21 102/59 97 98.8 01/19/18 18:16 99.5 95 20 108/40 98 Nasal Cannula 3.0 99.5 01/19/18 18:09 92 20 96/40 98 Nasal Cannula 3.0 01/19/18 17:50 87 20 93/53 98 Nasal Cannula 3.0 01/19/18 17:45 93 20 88/58 96 Nasal Cannula 3.0 01/19/18 17:30 92 20 118/66 98 Nasal Cannula 3.0 01/19/18 17:13 87 20 90/42 98 Nasal Cannula 3.0 01/19/18 17:00 82 20 85/41 99 Nasal Cannula 3.0 01/19/18 16:45 82 20 90/41 100 Simple Mask 8.0 I&O Intake and Output 01/19/18 01/20/18 19:00 07:00 Intake Total 1900 ml 300 ml Output Total 1800 ml 750 ml Balance 100 ml -450 ml Intake Oral 300 ml IV Total 1900 ml Output Urine Total 1800 ml 750 ml Wound: clean, dry, intact Drains: none Neuro Status: normal Vascular Status: normal Additional Comments xray reviewed Assessment Post-op Diagnosis POD 1 Procedure Performed Rt hip ORIF Plan Plan: PT, pain management, discharge plan - likely to snf once stable. f/u dr sommer 2 weeks, other - monitor H&H. transfuse as needed MERLIEN ELDER Jan 20, 2018 16:44
[2018-01-20] MEDS ORDERED: Albuterol/Ipratropium 3ml neb HHN PRN (17:30)
[2018-01-20] MEDS ORDERED: HYDROcodone/Acetamin 7.5/325 tab ORAL PRN (17:45)
[2018-01-20] MEDS ORDERED: TraZODone 50mg tab ORAL PRN (19:00)
[2018-01-20] MEDS: Tamsulosin 0.4mg cap ORAL SCH (21:02)
[2018-01-21] VITALS: BP 114/69
[2018-01-21] MEDS: Albuterol/Ipratropium 3ml neb HHN SCH ×5 (01:00→20:59)
[2018-01-21 04:00] VITALS: BP 111/50
[2018-01-21 08:00] VITALS: BP 115/51
[2018-01-21 08:14] LABS: HEMATOCRIT 21.8 % (42.0-52.0); HEMOGLOBIN 7.7 G/DL (14.2-18.0); MEAN CORPUSCULAR VOLUME 98 FL (80-99); PLATELET COUNT 115 K/UL (150-450); RED BLOOD COUNT 2.23 M/UL (4.70-6.10); WHITE BLOOD COUNT 8.7 K/UL (4.8-10.8)
[2018-01-21 08:33] LABS: ALANINE AMINOTRANSFERASE 13 U/L (12-78); ALBUMIN 2.3 G/DL (3.4-5.0); ALBUMIN/GLOBULIN RATIO 0.7 (1.0-2.7); ALKALINE PHOSPHATASE 81 U/L (46-116); ANION GAP 7 mmol/L (5-15); ASPARTATE AMINO TRANSFERASE 34 U/L (15-37); BILIRUBIN,TOTAL 0.9 MG/DL (0.2-1.0); BLOOD UREA NITROGEN 22 mg/dL (7-18); CALCIUM 8.3 MG/DL (8.5-10.1); CARBON DIOXIDE 22 MMOL/L (21-32); CHLORIDE 108 MMOL/L (98-107); CREATININE 0.9 MG/DL (0.55-1.30); POTASSIUM 4.1 MMOL/L (3.5-5.1); SODIUM 137 MMOL/L (136-145)
[2018-01-21] MEDS: Enoxaparin 30mg Inj SUBQ SCH (09:00)
[2018-01-21] MEDS: celeBREX 200mg Cap **SURGERY PATIENTS ONLY ORAL SCH (09:05)
[2018-01-21] MEDS: Aspirin EC 81mg tab ORAL SCH (09:05)
[2018-01-21] MEDS: Docusate 100mg cap ORAL SCH ×3 (09:06→17:52)
[2018-01-21 12:00] VITALS: BP 106/52
--- NOTE | 2018-01-21 12:25 | General Progress Note ---
Assessment/Plan Assessment/Plan 1. Thrombocytopenia. Okay to continue with surgery. Okay to continue Lovenox daily for prophylaxis. Pending hepatitis panel and human immunodeficiency virus. 2. Anemia due to underlying chronic disease. Continue to closely monitor. Anemia workup completed. Results: Iron 80, TIBC 245, Folate 47.5, B12 441 3. Coagulopathy, potentially secondary to liver disease. Obtain ultrasound of the abdomen. 4. Anemia due to orthopedic procedure, currently downtrended, potentially secondary to hemodilution. Again, continue to closely monitor. Evaluate if the patient requires iron. 5. Syncope, probably due to anemia versus vertigo versus other causes. 6. Tobacco use. 7. Alcoholic liver disease. 8. History of cirrhosis. Date of entry does reflect time patient was seen. Subjective Date patient seen: Jan 19, 2018 Constitutional: Denies: no symptoms, chills, diaphoresis, fever, malaise, weakness, other HEENT: Denies: no symptoms, eye pain, blurred vision, tearing, double vision, ear pain, ear discharge, nose pain, nose congestion, throat pain, throat swelling, mouth pain, mouth swelling, other Cardiovascular: Denies: no symptoms, chest pain, edema, irregular heart rate, lightheadedness, palpitations, syncope, other Respiratory: Denies: no symptoms, cough, orthopnea, shortness of breath, SOB with excertion, SOB at rest, sputum, stridor, wheezing, other Gastrointestinal/Abdominal: Denies: no symptoms, abdomen distended, abdominal pain, black stools, tarry stools, blood in stool, constipated, diarrhea, difficulty swallowing, nausea, poor appetite, poor fluid intake, rectal bleeding , vomiting, other Genitourinary: Denies: no symptoms, burning, discharge, frequency, flank pain, hematuria, incontinence, pain, urgency, other Hematologic/Lymphatic: Reports: anemia Allergies: Coded Allergies: No Known Allergies (Unverified , 01/17/18) Subjective Afebrile. On pain management. Hypotensive. Objective VS - Last 72 Hours, by Label Date Time Temp Pulse Resp B/P (MAP) Pulse Ox O2 Delivery O2 Flow Rate FiO2 01/21/18 12:00 98.1 88 20 106/52 93 Nasal Cannula 3.0 98.1 01/21/18 08:00 99.3 95 20 115/51 98 Nasal Cannula 3.0 99.3 01/21/18 07:15 94 20 99 Nasal Cannula 3.0 32 01/21/18 07:05 88 18 95 Nasal Cannula 3.0 32 01/21/18 07:00 95 Nasal Cannula 3.0 32 01/21/18 07:00 Nasal Cannula 3.0 32 01/21/18 04:00 89 01/21/18 04:00 97.0 89 20 111/50 91 Nasal Cannula 3.0 97.0 01/21/18 01:31 Nasal Cannula 3.0 32 01/21/18 01:30 Nasal Cannula 3.0 32 01/21/18 00:00 98.1 92 20 114/69 96 Nasal Cannula 3.0 98.1 01/21/18 00:00 92 01/20/18 20:00 93 01/20/18 20:00 98.7 85 20 109/74 97 Nasal Cannula 3.0 98.7 01/20/18 19:52 Nasal Cannula 3.0 32 01/20/18 19:51 Nasal Cannula 3.0 32 01/20/18 19:51 Nasal Cannula 3.0 32 01/20/18 19:51 98 Nasal Cannula 3.0 32 01/20/18 17:57 98.2 01/20/18 16:58 98.4 01/20/18 16:00 93 01/20/18 16:00 98.8 92 20 104/56 99 Nasal Cannula 3.0 98.8 01/20/18 14:56 97 18 98/51 98 Nasal Cannula 3.0 01/20/18 12:58 92 20 99 Nasal Cannula 3.0 32 01/20/18 12:47 90 18 98 Nasal Cannula 3.0 32 01/20/18 12:00 98.5 98 17 99/47 98 Nasal Cannula 3.0 98.5 01/20/18 10:30 97.9 98 88/47 97.9 01/20/18 10:01 98.3 01/20/18 08:37 98.3 01/20/18 08:00 98.3 99 18 91/55 98 Nasal Cannula 3.0 98.3 01/20/18 07:26 90 18 99 Nasal Cannula 3.0 32 01/20/18 07:20 20 84/53 97 Nasal Cannula 3.0 2/24/18 07:16 Nasal Cannula 3.0 32 01/20/18 07:16 99 Nasal Cannula 3.0 32 01/20/18 07:16 91 16 99 Nasal Cannula 3.0 32 01/20/18 03:24 97.8 103 16 105/51 98 Nasal Cannula 3.0 97.8 01/20/18 01:48 99 18 99 Nasal Cannula 3.0 32 01/20/18 01:41 102 16 98 Nasal Cannula 3.0 32 01/20/18 00:16 98.0 103 17 99/51 95 Nasal Cannula 3.0 98.0 01/19/18 20:16 97 18 99 Nasal Cannula 3.0 32 01/19/18 20:06 98 16 98 Nasal Cannula 3.0 32 01/19/18 20:05 98 Nasal Cannula 3.0 32 01/19/18 20:05 Nasal Cannula 3.0 32 01/19/18 19:52 97.4 96 18 100/46 98 Nasal Cannula 3.0 97.4 01/19/18 18:39 98.8 96 21 102/59 97 98.8 01/19/18 18:16 99.5 95 20 108/40 98 Nasal Cannula 3.0 99.5 01/19/18 18:09 92 20 96/40 98 Nasal Cannula 3.0 01/19/18 17:50 87 20 93/53 98 Nasal Cannula 3.0 01/19/18 17:45 93 20 88/58 96 Nasal Cannula 3.0 01/19/18 17:30 92 20 118/66 98 Nasal Cannula 3.0 01/19/18 17:13 87 20 90/42 98 Nasal Cannula 3.0 01/19/18 17:00 82 20 85/41 99 Nasal Cannula 3.0 01/19/18 16:45 82 20 90/41 100 Simple Mask 8.0 01/19/18 16:30 82 20 92/41 100 Simple Mask 8.0 01/19/18 16:15 82 20 100/41 100 Simple Mask 8.0 01/19/18 16:00 81 20 99/51 100 Simple Mask 8.0 01/19/18 15:55 79 20 98/41 100 Simple Mask 8.0 01/19/18 15:45 79 20 99/42 100 Simple Mask 8.0 01/19/18 15:40 97.5 80 20 100/49 100 Simple Mask 8.0 97.5 01/19/18 12:00 97.3 86 18 102/54 95 Nasal Cannula 97.3 01/19/18 12:00 96 01/19/18 11:38 87 18 99 Nasal Cannula 3.0 32 01/19/18 11:29 88 16 96 Nasal Cannula 3.0 32 01/19/18 10:55 98.7 01/19/18 10:25 98.7 01/19/18 08:00 80 01/19/18 08:00 98.5 84 18 111/55 95 Nasal Cannula 98.5 01/19/18 06:51 94 20 95 Nasal Cannula 3.0 32 01/19/18 06:41 93 Nasal Cannula 3.0 32 01/19/18 06:41 Nasal Cannula 3.0 32 01/19/18 06:41 92 18 93 Nasal Cannula 3.0 32 01/19/18 04:18 98.7 01/19/18 04:00 98.7 90 23 101/47 93 Nasal Cannula 98.7 01/19/18 04:00 82 01/19/18 02:13 84 20 93 Nasal Cannula 3.0 32 01/19/18 02:03 90 22 93 Nasal Cannula 3.0 32 01/19/18 00:00 98.9 64 20 97/52 91 Nasal Cannula 98.9 01/19/18 00:00 74 01/18/18 21:52 97.7 01/18/18 20:00 85 01/18/18 20:00 97.7 79 24 93/55 98 Nasal Cannula 97.7 01/18/18 19:48 78 18 94 Nasal Cannula 3.0 32 01/18/18 19:39 Nasal Cannula 2.0 28 01/18/18 19:39 74 18 92 Nasal Cannula 2.0 28 01/18/18 19:37 93 Nasal Cannula 2.0 28 01/18/18 17:07 97.0 01/18/18 16:08 97.0 01/18/18 16:00 98.1 76 18 94/54 97 Nasal Cannula 98.1 01/18/18 16:00 70 01/18/18 15:40 78 22 94 Nasal Cannula 2.0 28 01/18/18 15:30 75 22 Nasal Cannula 3.0 32 01/18/18 15:30 75 22 98 Nasal Cannula 3.0 32 Last 24 Hour Vital Signs Date Time Temp Pulse Resp B/P (MAP) Pulse Ox O2 Delivery O2 Flow Rate FiO2 01/21/18 12:00 98.1 88 20 106/52 93 Nasal Cannula 3.0 98.1 01/21/18 08:00 99.3 95 20 115/51 98 Nasal Cannula 3.0 99.3 01/21/18 07:15 94 20 99 Nasal Cannula 3.0 32 01/21/18 07:05 88 18 95 Nasal Cannula 3.0 32 01/21/18 07:00 95 Nasal Cannula 3.0 32 01/21/18 07:00 Nasal Cannula 3.0 32 01/21/18 04:00 89 01/21/18 04:00 97.0 89 20 111/50 91 Nasal Cannula 3.0 97.0 01/21/18 01:31 Nasal Cannula 3.0 32 01/21/18 01:30 Nasal Cannula 3.0 32 01/21/18 00:00 98.1 92 20 114/69 96 Nasal Cannula 3.0 98.1 01/21/18 00:00 92 01/20/18 20:00 93 01/20/18 20:00 98.7 85 20 109/74 97 Nasal Cannula 3.0 98.7 01/20/18 19:52 Nasal Cannula 3.0 32 01/20/18 19:51 Nasal Cannula 3.0 32 01/20/18 19:51 Nasal Cannula 3.0 32 01/20/18 19:51 98 Nasal Cannula 3.0 32 01/20/18 17:57 98.2 01/20/18 16:58 98.4 01/20/18 16:00 93 01/20/18 16:00 98.8 92 20 104/56 99 Nasal Cannula 3.0 98.8 01/20/18 14:56 97 18 98/51 98 Nasal Cannula 3.0 01/20/18 12:58 92 20 99 Nasal Cannula 3.0 32 01/20/18 12:47 90 18 98 Nasal Cannula 3.0 32 Intake and Output 01/20/18 01/21/18 19:00 07:00 Intake Total 450 ml 28 ml Output Total 600 ml 120 ml Balance -150 ml -92 ml IV Total 450 ml 28 ml Output Urine Total 600 ml 120 ml # Voids 1 Labs Test 01/18/18 12:30 01/19/18 06:50 01/20/18 06:40 01/21/18 06:50 Troponin I 0.004 ng/mL (0.000-0.056) White Blood Count 8.0 K/UL (4.8-10.8) 8.6 K/UL (4.8-10.8) 8.7 K/UL (4.8-10.8) Red Blood Count 2.86 M/UL (4.70-6.10) 2.05 M/UL (4.70-6.10) 2.23 M/UL (4.70-6.10) Hemoglobin 9.9 G/DL (14.2-18.0) 7.2 G/DL (14.2-18.0) 7.7 G/DL (14.2-18.0) Hematocrit 28.5 % (42.0-52.0) 20.4 % (42.0-52.0) 21.8 % (42.0-52.0) Mean Corpuscular Volume 100 FL (80-99) 100 FL (80-99) 98 FL (80-99) Mean Corpuscular Hemoglobin 34.8 PG (27.0-31.0) 34.9 PG (27.0-31.0) 34.7 PG (27.0-31.0) Mean Corpuscular Hemoglobin Concent 34.9 G/DL (32.0-36.0) 35.1 G/DL (32.0-36.0) 35.6 G/DL (32.0-36.0) Red Cell Distribution Width 12.6 % (11.6-14.8) 12.3 % (11.6-14.8) 14.0 % (11.6-14.8) Platelet Count 88 K/UL (150-450) 92 K/UL (150-450) 115 K/UL (150-450) Mean Platelet Volume 5.9 FL (6.5-10.1) 6.0 FL (6.5-10.1) 5.4 FL (6.5-10.1) Neutrophils (%) (Auto) % (45.0-75.0) % (45.0-75.0) % (45.0-75.0) Lymphocytes (%) (Auto) % (20.0-45.0) % (20.0-45.0) % (20.0-45.0) Monocytes (%) (Auto) % (1.0-10.0) % (1.0-10.0) % (1.0-10.0) Eosinophils (%) (Auto) % (0.0-3.0) % (0.0-3.0) % (0.0-3.0) Basophils (%) (Auto) % (0.0-2.0) % (0.0-2.0) % (0.0-2.0) Differential Total Cells Counted 100 100 100 Neutrophils % (Manual) 56 % (45-75) 60 % (45-75) 63 % (45-75) Lymphocytes % (Manual) 26 % (20-45) 25 % (20-45) 27 % (20-45) Monocytes % (Manual) 17 % (1-10) 12 % (1-10) 1 % (1-10) Eosinophils % (Manual) 1 % (0-3) 3 % (0-3) 9 % (0-3) Basophils % (Manual) 0 % (0-2) 0 % (0-2) 0 % (0-2) Band Neutrophils 0 % (0-8) 0 % (0-8) 0 % (0-8) Platelet Estimate Decreased Decreased Decreased Platelet Morphology Normal Normal Normal Hypochromasia 2+ 1+ 1+ Spherocytes 1+ Reticulocyte Count 1.0 % (0.0-2.0) Sodium Level 135 MMOL/L (136-145) 136 MMOL/L (136-145) 137 MMOL/L (136-145) Potassium Level 4.8 MMOL/L (3.5-5.1) 4.4 MMOL/L (3.5-5.1) 4.1 MMOL/L (3.5-5.1) Chloride Level 104 MMOL/L (98-107) 106 MMOL/L (98-107) 108 MMOL/L (98-107) Carbon Dioxide Level 25 MMOL/L (21-32) 23 MMOL/L (21-32) 22 MMOL/L (21-32) Anion Gap 6 mmol/L (5-15) 7 mmol/L (5-15) 7 mmol/L (5-15) Blood Urea Nitrogen 29 mg/dL (7-18) 25 mg/dL (7-18) 22 mg/dL (7-18) Creatinine 1.1 MG/DL (0.55-1.30) 1.0 MG/DL (0.55-1.30) 0.9 MG/DL (0.55-1.30) Estimat Glomerular Filtration Rate mL/min (>60) mL/min (>60) mL/min (>60) Glucose Level 107 MG/DL (74-106) 124 MG/DL (74-106) 107 MG/DL (74-106) Calcium Level 8.9 MG/DL (8.5-10.1) 8.1 MG/DL (8.5-10.1) 8.3 MG/DL (8.5-10.1) Iron Level 80 ug/dL (50-175) Total Iron Binding Capacity 245 ug/dL (250-450) Percent Iron Saturation 33 % (15-50) Unsaturated Iron Binding 165 ug/dL (112-346) Ferritin 209 NG/ML (8-388) Folate 47.5 NG/ML (8.6-58.9) Hepatitis A IgM Antibody Negative (Negative) Hepatitis B Surface Antigen Negative (Negative) Hepatitis B Core IgM Antibody Negative (Negative) Hepatitis C Antibody 0.1 s/co ratio (0.0-0.9) HIV (1&2) Antibody Rapid Negative (NEGATIVE) Macrocytosis 1+ Phosphorus Level 2.7 MG/DL (2.5-4.9) Magnesium Level 1.9 MG/DL (1.8-2.4) Polychromasia 1+ Anisocytosis 1+ Total Bilirubin 0.9 MG/DL (0.2-1.0) Aspartate Amino Transf (AST/SGOT) 34 U/L (15-37) Alanine Aminotransferase (ALT/SGPT) 13 U/L (12-78) Alkaline Phosphatase 81 U/L (46-116) Total Protein 5.7 G/DL (6.4-8.2) Albumin 2.3 G/DL (3.4-5.0) Globulin 3.4 g/dL Albumin/Globulin Ratio 0.7 (1.0-2.7) Laboratory Tests 01/21/18 06:50: White Blood Count 8.7, Red Blood Count 2.23L, Hemoglobin 7.7L, Hematocrit 21.8L , Mean Corpuscular Volume 98, Mean Corpuscular Hemoglobin 34.7H, Mean Corpuscular Hemoglobin Concent 35.6, Red Cell Distribution Width 14.0, Platelet Count 115L, Mean Platelet Volume 5.4L, Neutrophils (%) (Auto) , Lymphocytes (%) (Auto) , Monocytes (%) (Auto) , Eosinophils (%) (Auto) , Basophils (%) (Auto) , Differential Total Cells Counted 100, Neutrophils % (Manual) 63, Lymphocytes % ( Manual) 27, Monocytes % (Manual) 1, Eosinophils % (Manual) 9H, Basophils % ( Manual) 0, Band Neutrophils 0, Platelet Estimate DecreasedL, Platelet Morphology Normal, Polychromasia 1+, Hypochromasia 1+, Anisocytosis 1+, Sodium Level 137, Potassium Level 4.1, Chloride Level 108H, Carbon Dioxide Level 22, Anion Gap 7, Blood Urea Nitrogen 22H, Creatinine 0.9, Estimat Glomerular Filtration Rate , Glucose Level 107H, Calcium Level 8.3L, Total Bilirubin 0.9, Aspartate Amino Transf (AST/SGOT) 34, Alanine Aminotransferase (ALT/SGPT) 13, Alkaline Phosphatase 81, Total Protein 5.7L, Albumin 2.3L, Globulin 3.4, Albumin /Globulin Ratio 0.7L Height (Feet): 5 Height (Inches): 6.00 Weight (Pounds): 135 General Appearance: confused Respiratory/Chest: decreased breath sounds Edema: trace edema Arvin Cho Jan 21, 2018 12:25
--- NOTE | 2018-01-21 12:29 | General Progress Note ---
Assessment/Plan Assessment/Plan 1. Thrombocytopenia. Okay to continue with surgery. --> Okay to continue Lovenox daily for prophylaxis. ---> Negative hepatitis panel and human immunodeficiency virus. --> Improving. 2. Anemia due to underlying chronic disease. --> Continue to closely monitor. --> Anemia workup completed. Results: Iron 80, TIBC 245, Folate 47.5, B12 441 --> Hemoglobin low, goal is >7 3. Coagulopathy, potentially secondary to liver disease. --> S/P ab ultrasound, was suboptimal and revealed no significant results 4. Anemia due to orthopedic procedure, currently downtrended, potentially secondary to hemodilution. --> Again, continue to closely monitor. --> Does not need iron at this time. 5. Syncope, probably due to anemia versus vertigo versus other causes. 6. Tobacco use. 7. Alcoholic liver disease. 8. History of cirrhosis. Subjective Date patient seen: Jan 20, 2018 Constitutional: Denies: no symptoms, chills, diaphoresis, fever, malaise, weakness, other HEENT: Denies: no symptoms, eye pain, blurred vision, tearing, double vision, ear pain, ear discharge, nose pain, nose congestion, throat pain, throat swelling, mouth pain, mouth swelling, other Cardiovascular: Denies: no symptoms, chest pain, edema, irregular heart rate, lightheadedness, palpitations, syncope, other Respiratory: Denies: no symptoms, cough, orthopnea, shortness of breath, SOB with excertion, SOB at rest, sputum, stridor, wheezing, other Gastrointestinal/Abdominal: Denies: no symptoms, abdomen distended, abdominal pain, black stools, tarry stools, blood in stool, constipated, diarrhea, difficulty swallowing, nausea, poor appetite, poor fluid intake, rectal bleeding , vomiting, other Genitourinary: Denies: no symptoms, burning, discharge, frequency, flank pain, hematuria, incontinence, pain, urgency, other Hematologic/Lymphatic: Reports: anemia Allergies: Coded Allergies: No Known Allergies (Unverified , 01/17/18) Subjective S/P right ORIF. Hemoglobin dropped to 7.2. Platelet count improving. Objective Last 24 Hour Vital Signs Date Time Temp Pulse Resp B/P (MAP) Pulse Ox O2 Delivery O2 Flow Rate FiO2 01/21/18 12:00 98.1 88 20 106/52 93 Nasal Cannula 3.0 98.1 01/21/18 08:00 99.3 95 20 115/51 98 Nasal Cannula 3.0 99.3 01/21/18 07:15 94 20 99 Nasal Cannula 3.0 32 01/21/18 07:05 88 18 95 Nasal Cannula 3.0 32 01/21/18 07:00 95 Nasal Cannula 3.0 32 01/21/18 07:00 Nasal Cannula 3.0 32 01/21/18 04:00 89 01/21/18 04:00 97.0 89 20 111/50 91 Nasal Cannula 3.0 97.0 01/21/18 01:31 Nasal Cannula 3.0 32 01/21/18 01:30 Nasal Cannula 3.0 32 01/21/18 00:00 98.1 92 20 114/69 96 Nasal Cannula 3.0 98.1 01/21/18 00:00 92 01/20/18 20:00 93 01/20/18 20:00 98.7 85 20 109/74 97 Nasal Cannula 3.0 98.7 01/20/18 19:52 Nasal Cannula 3.0 32 01/20/18 19:51 Nasal Cannula 3.0 32 01/20/18 19:51 Nasal Cannula 3.0 32 01/20/18 19:51 98 Nasal Cannula 3.0 32 01/20/18 17:57 98.2 01/20/18 16:58 98.4 01/20/18 16:00 93 01/20/18 16:00 98.8 92 20 104/56 99 Nasal Cannula 3.0 98.8 01/20/18 14:56 97 18 98/51 98 Nasal Cannula 3.0 01/20/18 12:58 92 20 99 Nasal Cannula 3.0 32 01/20/18 12:47 90 18 98 Nasal Cannula 3.0 32 01/20/18 12:00 98.5 98 17 99/47 98 Nasal Cannula 3.0 98.5 01/20/18 10:30 97.9 98 88/47 97.9 01/20/18 10:01 98.3 01/20/18 08:37 98.3 01/20/18 08:00 98.3 99 18 91/55 98 Nasal Cannula 3.0 98.3 01/20/18 07:26 90 18 99 Nasal Cannula 3.0 32 01/20/18 07:20 20 84/53 97 Nasal Cannula 3.0 01/20/18 07:16 Nasal Cannula 3.0 32 01/20/18 07:16 99 Nasal Cannula 3.0 32 01/20/18 07:16 91 16 99 Nasal Cannula 3.0 32 01/20/18 03:24 97.8 103 16 105/51 98 Nasal Cannula 3.0 97.8 01/20/18 01:48 99 18 99 Nasal Cannula 3.0 32 01/20/18 01:41 102 16 98 Nasal Cannula 3.0 32 01/20/18 00:16 98.0 103 17 99/51 95 Nasal Cannula 3.0 98.0 01/19/18 20:16 97 18 99 Nasal Cannula 3.0 32 01/19/18 20:06 98 16 98 Nasal Cannula 3.0 32 01/19/18 20:05 98 Nasal Cannula 3.0 32 01/19/18 20:05 Nasal Cannula 3.0 32 01/19/18 19:52 97.4 96 18 100/46 98 Nasal Cannula 3.0 97.4 01/19/18 18:39 98.8 96 21 102/59 97 98.8 01/19/18 18:16 99.5 95 20 108/40 98 Nasal Cannula 3.0 99.5 01/19/18 18:09 92 20 96/40 98 Nasal Cannula 3.0 01/19/18 17:50 87 20 93/53 98 Nasal Cannula 3.0 01/19/18 17:45 93 20 88/58 96 Nasal Cannula 3.0 01/19/18 17:30 92 20 118/66 98 Nasal Cannula 3.0 01/19/18 17:13 87 20 90/42 98 Nasal Cannula 3.0 01/19/18 17:00 82 20 85/41 99 Nasal Cannula 3.0 01/19/18 16:45 82 20 90/41 100 Simple Mask 8.0 01/19/18 16:30 82 20 92/41 100 Simple Mask 8.0 01/19/18 16:15 82 20 100/41 100 Simple Mask 8.0 01/19/18 16:00 81 20 99/51 100 Simple Mask 8.0 01/19/18 15:55 79 20 98/41 100 Simple Mask 8.0 01/19/18 15:45 79 20 99/42 100 Simple Mask 8.0 01/19/18 15:40 97.5 80 20 100/49 100 Simple Mask 8.0 97.5 Last 24 Hour Vital Signs Date Time Temp Pulse Resp B/P (MAP) Pulse Ox O2 Delivery O2 Flow Rate FiO2 01/21/18 12:00 98.1 88 20 106/52 93 Nasal Cannula 3.0 98.1 01/21/18 08:00 99.3 95 20 115/51 98 Nasal Cannula 3.0 99.3 01/21/18 07:15 94 20 99 Nasal Cannula 3.0 32 01/21/18 07:05 88 18 95 Nasal Cannula 3.0 32 01/21/18 07:00 95 Nasal Cannula 3.0 32 01/21/18 07:00 Nasal Cannula 3.0 32 01/21/18 04:00 89 01/21/18 04:00 97.0 89 20 111/50 91 Nasal Cannula 3.0 97.0 01/21/18 01:31 Nasal Cannula 3.0 32 01/21/18 01:30 Nasal Cannula 3.0 32 01/21/18 00:00 98.1 92 20 114/69 96 Nasal Cannula 3.0 98.1 01/21/18 00:00 92 01/20/18 20:00 93 01/20/18 20:00 98.7 85 20 109/74 97 Nasal Cannula 3.0 98.7 01/20/18 19:52 Nasal Cannula 3.0 32 01/20/18 19:51 Nasal Cannula 3.0 32 01/20/18 19:51 Nasal Cannula 3.0 32 01/20/18 19:51 98 Nasal Cannula 3.0 32 01/20/18 17:57 98.2 01/20/18 16:58 98.4 01/20/18 16:00 93 01/20/18 16:00 98.8 92 20 104/56 99 Nasal Cannula 3.0 98.8 01/20/18 14:56 97 18 98/51 98 Nasal Cannula 3.0 01/20/18 12:58 92 20 99 Nasal Cannula 3.0 32 01/20/18 12:47 90 18 98 Nasal Cannula 3.0 32 Intake and Output 01/20/18 01/21/18 19:00 07:00 Intake Total 450 ml 28 ml Output Total 600 ml 120 ml Balance -150 ml -92 ml IV Total 450 ml 28 ml Output Urine Total 600 ml 120 ml # Voids 1 Labs Test 01/18/18 12:30 01/19/18 06:50 01/20/18 06:40 01/21/18 06:50 Troponin I 0.004 ng/mL (0.000-0.056) White Blood Count 8.0 K/UL (4.8-10.8) 8.6 K/UL (4.8-10.8) 8.7 K/UL (4.8-10.8) Red Blood Count 2.86 M/UL (4.70-6.10) 2.05 M/UL (4.70-6.10) 2.23 M/UL (4.70-6.10) Hemoglobin 9.9 G/DL (14.2-18.0) 7.2 G/DL (14.2-18.0) 7.7 G/DL (14.2-18.0) Hematocrit 28.5 % (42.0-52.0) 20.4 % (42.0-52.0) 21.8 % (42.0-52.0) Mean Corpuscular Volume 100 FL (80-99) 100 FL (80-99) 98 FL (80-99) Mean Corpuscular Hemoglobin 34.8 PG (27.0-31.0) 34.9 PG (27.0-31.0) 34.7 PG (27.0-31.0) Mean Corpuscular Hemoglobin Concent 34.9 G/DL (32.0-36.0) 35.1 G/DL (32.0-36.0) 35.6 G/DL (32.0-36.0) Red Cell Distribution Width 12.6 % (11.6-14.8) 12.3 % (11.6-14.8) 14.0 % (11.6-14.8) Platelet Count 88 K/UL (150-450) 92 K/UL (150-450) 115 K/UL (150-450) Mean Platelet Volume 5.9 FL (6.5-10.1) 6.0 FL (6.5-10.1) 5.4 FL (6.5-10.1) Neutrophils (%) (Auto) % (45.0-75.0) % (45.0-75.0) % (45.0-75.0) Lymphocytes (%) (Auto) % (20.0-45.0) % (20.0-45.0) % (20.0-45.0) Monocytes (%) (Auto) % (1.0-10.0) % (1.0-10.0) % (1.0-10.0) Eosinophils (%) (Auto) % (0.0-3.0) % (0.0-3.0) % (0.0-3.0) Basophils (%) (Auto) % (0.0-2.0) % (0.0-2.0) % (0.0-2.0) Differential Total Cells Counted 100 100 100 Neutrophils % (Manual) 56 % (45-75) 60 % (45-75) 63 % (45-75) Lymphocytes % (Manual) 26 % (20-45) 25 % (20-45) 27 % (20-45) Monocytes % (Manual) 17 % (1-10) 12 % (1-10) 1 % (1-10) Eosinophils % (Manual) 1 % (0-3) 3 % (0-3) 9 % (0-3) Basophils % (Manual) 0 % (0-2) 0 % (0-2) 0 % (0-2) Band Neutrophils 0 % (0-8) 0 % (0-8) 0 % (0-8) Platelet Estimate Decreased Decreased Decreased Platelet Morphology Normal Normal Normal Hypochromasia 2+ 1+ 1+ Spherocytes 1+ Reticulocyte Count 1.0 % (0.0-2.0) Sodium Level 135 MMOL/L (136-145) 136 MMOL/L (136-145) 137 MMOL/L (136-145) Potassium Level 4.8 MMOL/L (3.5-5.1) 4.4 MMOL/L (3.5-5.1) 4.1 MMOL/L (3.5-5.1) Chloride Level 104 MMOL/L (98-107) 106 MMOL/L (98-107) 108 MMOL/L (98-107) Carbon Dioxide Level 25 MMOL/L (21-32) 23 MMOL/L (21-32) 22 MMOL/L (21-32) Anion Gap 6 mmol/L (5-15) 7 mmol/L (5-15) 7 mmol/L (5-15) Blood Urea Nitrogen 29 mg/dL (7-18) 25 mg/dL (7-18) 22 mg/dL (7-18) Creatinine 1.1 MG/DL (0.55-1.30) 1.0 MG/DL (0.55-1.30) 0.9 MG/DL (0.55-1.30) Estimat Glomerular Filtration Rate mL/min (>60) mL/min (>60) mL/min (>60) Glucose Level 107 MG/DL (74-106) 124 MG/DL (74-106) 107 MG/DL (74-106) Calcium Level 8.9 MG/DL (8.5-10.1) 8.1 MG/DL (8.5-10.1) 8.3 MG/DL (8.5-10.1) Iron Level 80 ug/dL (50-175) Total Iron Binding Capacity 245 ug/dL (250-450) Percent Iron Saturation 33 % (15-50) Unsaturated Iron Binding 165 ug/dL (112-346) Ferritin 209 NG/ML (8-388) Folate 47.5 NG/ML (8.6-58.9) Hepatitis A IgM Antibody Negative (Negative) Hepatitis B Surface Antigen Negative (Negative) Hepatitis B Core IgM Antibody Negative (Negative) Hepatitis C Antibody 0.1 s/co ratio (0.0-0.9) HIV (1&2) Antibody Rapid Negative (NEGATIVE) Macrocytosis 1+ Phosphorus Level 2.7 MG/DL (2.5-4.9) Magnesium Level 1.9 MG/DL (1.8-2.4) Polychromasia 1+ Anisocytosis 1+ Total Bilirubin 0.9 MG/DL (0.2-1.0) Aspartate Amino Transf (AST/SGOT) 34 U/L (15-37) Alanine Aminotransferase (ALT/SGPT) 13 U/L (12-78) Alkaline Phosphatase 81 U/L (46-116) Total Protein 5.7 G/DL (6.4-8.2) Albumin 2.3 G/DL (3.4-5.0) Globulin 3.4 g/dL Albumin/Globulin Ratio 0.7 (1.0-2.7) Laboratory Tests 01/21/18 06:50: White Blood Count 8.7, Red Blood Count 2.23L, Hemoglobin 7.7L, Hematocrit 21.8L , Mean Corpuscular Volume 98, Mean Corpuscular Hemoglobin 34.7H, Mean Corpuscular Hemoglobin Concent 35.6, Red Cell Distribution Width 14.0, Platelet Count 115L, Mean Platelet Volume 5.4L, Neutrophils (%) (Auto) , Lymphocytes (%) (Auto) , Monocytes (%) (Auto) , Eosinophils (%) (Auto) , Basophils (%) (Auto) , Differential Total Cells Counted 100, Neutrophils % (Manual) 63, Lymphocytes % ( Manual) 27, Monocytes % (Manual) 1, Eosinophils % (Manual) 9H, Basophils % ( Manual) 0, Band Neutrophils 0, Platelet Estimate DecreasedL, Platelet Morphology Normal, Polychromasia 1+, Hypochromasia 1+, Anisocytosis 1+, Sodium Level 137, Potassium Level 4.1, Chloride Level 108H, Carbon Dioxide Level 22, Anion Gap 7, Blood Urea Nitrogen 22H, Creatinine 0.9, Estimat Glomerular Filtration Rate , Glucose Level 107H, Calcium Level 8.3L, Total Bilirubin 0.9, Aspartate Amino Transf (AST/SGOT) 34, Alanine Aminotransferase (ALT/SGPT) 13, Alkaline Phosphatase 81, Total Protein 5.7L, Albumin 2.3L, Globulin 3.4, Albumin /Globulin Ratio 0.7L Height (Feet): 5 Height (Inches): 6.00 Weight (Pounds): 135 Arvin Cho Jan 21, 2018 12:29
--- NOTE | 2018-01-21 13:26 | Cardiac Electrophysiology PN ---
Assessment/Plan Assessment/Plan 1. Status post fall versus syncope. Ruled out for myocardial infarction. EF 65 % 2. History of asthma, on albuterol. 3. Right hip fracture. S/P ORIF by Dr Clark. No cardiac events 4. Hypotension.No further hypotension. 5. Anemia Hb dropped form 9 to 7.2. Got 1 unit prbc. Getting another unit prbc today 6. Short burst of atrial fib 7. Short AIVR DW RN and Fiancee at bedside Subjective Subjective Comfortable in NAD.Transferred to telemetry. Fiancee at bedside.Had PRBC yesterday and getting another unit today. Had short run of atrial fib and AIVR Objective Last 24 Hour Vital Signs Date Time Temp Pulse Resp B/P (MAP) Pulse Ox O2 Delivery O2 Flow Rate FiO2 01/21/18 12:00 98.1 88 20 106/52 93 Nasal Cannula 3.0 98.1 01/21/18 08:00 99.3 95 20 115/51 98 Nasal Cannula 3.0 99.3 01/21/18 07:15 94 20 99 Nasal Cannula 3.0 32 01/21/18 07:05 88 18 95 Nasal Cannula 3.0 32 01/21/18 07:00 95 Nasal Cannula 3.0 32 01/21/18 07:00 Nasal Cannula 3.0 32 01/21/18 04:00 89 01/21/18 04:00 97.0 89 20 111/50 91 Nasal Cannula 3.0 97.0 01/21/18 01:31 Nasal Cannula 3.0 32 01/21/18 01:30 Nasal Cannula 3.0 32 01/21/18 00:00 98.1 92 20 114/69 96 Nasal Cannula 3.0 98.1 01/21/18 00:00 92 01/20/18 20:00 93 01/20/18 20:00 98.7 85 20 109/74 97 Nasal Cannula 3.0 98.7 01/20/18 19:52 Nasal Cannula 3.0 32 01/20/18 19:51 Nasal Cannula 3.0 32 01/20/18 19:51 Nasal Cannula 3.0 32 01/20/18 19:51 98 Nasal Cannula 3.0 32 01/20/18 17:57 98.2 01/20/18 16:58 98.4 01/20/18 16:00 93 01/20/18 16:00 98.8 92 20 104/56 99 Nasal Cannula 3.0 98.8 01/20/18 14:56 97 18 98/51 98 Nasal Cannula 3.0 Intake and Output 01/20/18 01/21/18 19:00 07:00 Intake Total 450 ml 28 ml Output Total 600 ml 120 ml Balance -150 ml -92 ml IV Total 450 ml 28 ml Output Urine Total 600 ml 120 ml # Voids 1 Laboratory Tests Test 01/21/18 06:50 White Blood Count 8.7 K/UL (4.8-10.8) Red Blood Count 2.23 M/UL (4.70-6.10) L Hemoglobin 7.7 G/DL (14.2-18.0) L Hematocrit 21.8 % (42.0-52.0) L Mean Corpuscular Volume 98 FL (80-99) Mean Corpuscular Hemoglobin 34.7 PG (27.0-31.0) H Mean Corpuscular Hemoglobin Concent 35.6 G/DL (32.0-36.0) Red Cell Distribution Width 14.0 % (11.6-14.8) Platelet Count 115 K/UL (150-450) L Mean Platelet Volume 5.4 FL (6.5-10.1) L Neutrophils (%) (Auto) % (45.0-75.0) Lymphocytes (%) (Auto) % (20.0-45.0) Monocytes (%) (Auto) % (1.0-10.0) Eosinophils (%) (Auto) % (0.0-3.0) Basophils (%) (Auto) % (0.0-2.0) Differential Total Cells Counted 100 Neutrophils % (Manual) 63 % (45-75) Lymphocytes % (Manual) 27 % (20-45) Monocytes % (Manual) 1 % (1-10) Eosinophils % (Manual) 9 % (0-3) H Basophils % (Manual) 0 % (0-2) Band Neutrophils 0 % (0-8) Platelet Estimate Decreased L Platelet Morphology Normal Polychromasia 1+ Hypochromasia 1+ Anisocytosis 1+ Sodium Level 137 MMOL/L (136-145) Potassium Level 4.1 MMOL/L (3.5-5.1) Chloride Level 108 MMOL/L (98-107) H Carbon Dioxide Level 22 MMOL/L (21-32) Anion Gap 7 mmol/L (5-15) Blood Urea Nitrogen 22 mg/dL (7-18) H Creatinine 0.9 MG/DL (0.55-1.30) Estimat Glomerular Filtration Rate mL/min (>60) Glucose Level 107 MG/DL (74-106) H Calcium Level 8.3 MG/DL (8.5-10.1) L Total Bilirubin 0.9 MG/DL (0.2-1.0) Aspartate Amino Transf (AST/SGOT) 34 U/L (15-37) Alanine Aminotransferase (ALT/SGPT) 13 U/L (12-78) Alkaline Phosphatase 81 U/L (46-116) Total Protein 5.7 G/DL (6.4-8.2) L Albumin 2.3 G/DL (3.4-5.0) L Globulin 3.4 g/dL Albumin/Globulin Ratio 0.7 (1.0-2.7) L Objective HEAD AND NECK: No JVD or carotid bruit. LUNGS: Clear. CARDIOVASCULAR: Regular S1 and S2 with no gallop or murmur. ABDOMEN: Soft. EXTREMITIES: Showed no pitting edema. S/P Right hip surgery KINZA MCCOY Jan 21, 2018 13:26
--- NOTE | 2018-01-21 15:39 | Cardiology Report ---
APPROVED REPORT EKG Measurement Heart [id number] NV 182P [id number] Normal sinus rhythm Cannot rule out Anterior infarct, age undetermined Abnormal ECG
[2018-01-21 16:00] VITALS: BP 110/49
[2018-01-21] MEDS ORDERED: Tubing Blood Filter IV ONE (16:32)
[2018-01-21] MEDS ORDERED: NS 275ml ONE (16:32)
[2018-01-21 20:00] VITALS: BP 110/53
[2018-01-21] MEDS: Tamsulosin 0.4mg cap ORAL SCH (20:41)
--- NOTE | 2018-01-21 23:13 | General Progress Note ---
Assessment/Plan Assessment/Plan #. Anemia due to underlying chronic disease. --> Continue to closely monitor. --> Anemia workup completed. Results: Iron 80, TIBC 245, Folate 47.5, B12 441 --> S/P PRBC as hemoglobin levels fell below goal --> Hemoglobin goal is >7, trend daily. #. Thrombocytopenia. Okay to continue with surgery. --> Okay to continue Lovenox daily for prophylaxis. ---> Negative hepatitis panel and human immunodeficiency virus. --> Improving. #. Coagulopathy, potentially secondary to liver disease. --> S/P ab ultrasound, was suboptimal and revealed no significant results #. Anemia due to orthopedic procedure, currently downtrended, potentially secondary to hemodilution. --> Again, continue to closely monitor. --> Does not need iron at this time. #. Syncope, probably due to anemia versus vertigo versus other causes. #. Tobacco use. #. Alcoholic liver disease. #. History of cirrhosis. Subjective Date patient seen: Jan 21, 2018 Constitutional: Denies: no symptoms, chills, diaphoresis, fever, malaise, weakness, other HEENT: Denies: no symptoms, eye pain, blurred vision, tearing, double vision, ear pain, ear discharge, nose pain, nose congestion, throat pain, throat swelling, mouth pain, mouth swelling, other Cardiovascular: Denies: no symptoms, chest pain, edema, irregular heart rate, lightheadedness, palpitations, syncope, other Respiratory: Denies: no symptoms, cough, orthopnea, shortness of breath, SOB with excertion, SOB at rest, sputum, stridor, wheezing, other Gastrointestinal/Abdominal: Denies: no symptoms, abdomen distended, abdominal pain, black stools, tarry stools, blood in stool, constipated, diarrhea, difficulty swallowing, nausea, poor appetite, poor fluid intake, rectal bleeding , vomiting, other Genitourinary: Denies: no symptoms, burning, discharge, frequency, flank pain, hematuria, incontinence, pain, urgency, other Neurologic/Psychiatric: Denies: no symptoms, anxiety, depressed, emotional problems, headache, numbness, paresthesia, pre-existing deficit, seizure, tingling, tremors, weakness, other Allergies: Coded Allergies: No Known Allergies (Unverified , 01/17/18) Subjective S/P blood transfusion. No adverse events. Objective Last 24 Hour Vital Signs Date Time Temp Pulse Resp B/P (MAP) Pulse Ox O2 Delivery O2 Flow Rate FiO2 01/21/18 21:00 87 20 95 Nasal Cannula 3.0 32 01/21/18 21:00 91 20 98 Nasal Cannula 3.0 32 01/21/18 20:00 91 01/21/18 20:00 98.2 90 22 110/53 100 Nasal Cannula 3.0 98.2 01/21/18 19:30 Nasal Cannula 3.0 32 01/21/18 19:30 Nasal Cannula 3.0 32 01/21/18 19:30 Nasal Cannula 3.0 32 01/21/18 19:30 97 Nasal Cannula 3.0 32 01/21/18 16:00 97.9 88 20 110/49 100 Nasal Cannula 3.0 97.9 01/21/18 16:00 91 01/21/18 13:35 Nasal Cannula 01/21/18 13:35 Nasal Cannula 01/21/18 12:00 92 01/21/18 12:00 98.1 88 20 106/52 93 Nasal Cannula 3.0 98.1 01/21/18 08:00 93 01/21/18 08:00 99.3 95 20 115/51 98 Nasal Cannula 3.0 99.3 01/21/18 07:15 94 20 99 Nasal Cannula 3.0 32 01/21/18 07:05 88 18 95 Nasal Cannula 3.0 32 01/21/18 07:00 95 Nasal Cannula 3.0 32 01/21/18 07:00 Nasal Cannula 3.0 32 01/21/18 04:00 89 01/21/18 04:00 97.0 89 20 111/50 91 Nasal Cannula 3.0 97.0 01/21/18 01:31 Nasal Cannula 3.0 32 01/21/18 01:30 Nasal Cannula 3.0 32 01/21/18 00:00 98.1 92 20 114/69 96 Nasal Cannula 3.0 98.1 01/21/18 00:00 92 Intake and Output 01/20/18 01/21/18 19:00 07:00 Intake Total 450 ml 28 ml Output Total 600 ml 120 ml Balance -150 ml -92 ml IV Total 450 ml 28 ml Output Urine Total 600 ml 120 ml # Voids 1 Laboratory Tests 01/21/18 06:50: White Blood Count 8.7, Red Blood Count 2.23L, Hemoglobin 7.7L, Hematocrit 21.8L , Mean Corpuscular Volume 98, Mean Corpuscular Hemoglobin 34.7H, Mean Corpuscular Hemoglobin Concent 35.6, Red Cell Distribution Width 14.0, Platelet Count 115L, Mean Platelet Volume 5.4L, Neutrophils (%) (Auto) , Lymphocytes (%) (Auto) , Monocytes (%) (Auto) , Eosinophils (%) (Auto) , Basophils (%) (Auto) , Differential Total Cells Counted 100, Neutrophils % (Manual) 63, Lymphocytes % ( Manual) 27, Monocytes % (Manual) 1, Eosinophils % (Manual) 9H, Basophils % ( Manual) 0, Band Neutrophils 0, Platelet Estimate DecreasedL, Platelet Morphology Normal, Polychromasia 1+, Hypochromasia 1+, Anisocytosis 1+, Sodium Level 137, Potassium Level 4.1, Chloride Level 108H, Carbon Dioxide Level 22, Anion Gap 7, Blood Urea Nitrogen 22H, Creatinine 0.9, Estimat Glomerular Filtration Rate , Glucose Level 107H, Calcium Level 8.3L, Total Bilirubin 0.9, Aspartate Amino Transf (AST/SGOT) 34, Alanine Aminotransferase (ALT/SGPT) 13, Alkaline Phosphatase 81, Total Protein 5.7L, Albumin 2.3L, Globulin 3.4, Albumin /Globulin Ratio 0.7L Height (Feet): 5 Height (Inches): 6.00 Weight (Pounds): 135 Arvin Cho Jan 21, 2018 23:13
--- NOTE | 2018-01-21 23:20 | General Progress Note ---
Assessment/Plan Problem List: (1) Acute blood loss anemia ICD Codes: D62 - Acute posthemorrhagic anemia SNOMED: 427149086 (2) MARYANNE (acute kidney injury) ICD Codes: N17.9 - Acute kidney failure, unspecified SNOMED: 50586609 (3) Fall ICD Codes: W19.XXXA - Unspecified fall, initial encounter SNOMED: 3659578, 725751810 Qualifiers: Qualified Codes: W19.XXXA - Unspecified fall, initial encounter (4) Right hip pain ICD Codes: M25.551 - Pain in right hip SNOMED: 81216895 (5) Closed right hip fracture ICD Codes: S72.001A - Fracture of unspecified part of neck of right femur, initial encounter for closed fracture SNOMED: 834019312 Qualifiers: Qualified Codes: S72.001A - Fracture of unspecified part of neck of right femur, initial encounter for closed fracture (6) COPD (chronic obstructive pulmonary disease) ICD Codes: J44.9 - Chronic obstructive pulmonary disease, unspecified SNOMED: 47095478 (7) CAD (coronary artery disease) ICD Codes: I25.10 - Atherosclerotic heart disease of [place] coronary artery without angina pectoris SNOMED: 78592386 (8) Tobacco abuse ICD Codes: Z72.0 - Tobacco use SNOMED: 962877497 (9) HTN (hypertension) ICD Codes: I10 - Essential (primary) hypertension SNOMED: 65209017 (10) HLD (hyperlipidemia) ICD Codes: E78.5 - Hyperlipidemia, unspecified SNOMED: 58630239 (11) BPH (benign prostatic hyperplasia) ICD Codes: N40.0 - Benign prostatic hyperplasia without lower urinary tract symptoms SNOMED: 072949683 (12) Fracture of right hip ICD Codes: S72.001A - Fracture of unspecified part of neck of right femur, initial encounter for closed fracture SNOMED: 360258038 (13) Syncope ICD Codes: R55 - Syncope and collapse SNOMED: 250921616 (14) PVD (peripheral vascular disease) ICD Codes: I73.9 - Peripheral vascular disease, unspecified SNOMED: 874040394 (15) Hyponatremia ICD Codes: E87.1 - Hypo-osmolality and hyponatremia SNOMED: 67777200 (16) Alcoholic liver disease ICD Codes: K70.9 - Alcoholic liver disease, unspecified SNOMED: 23751966 (17) lives in [place] Status: stable Assessment/Plan s/p R ORIF, POD#2 s/p 2 units pRBC lovenox 30mg subq x 10 days Ortho consulted [facility]B RLE PT eval and treat Pain control, bowel regimen Cardiology consulted Trop neg, TTE--EF wnl 65% F/u carotid duplex F/u abdominal U/S IVFs for MARYANNE Cont home meds but hold home lasix and aldactone for now given MARYANNE DVT Prophylaxis: SCD Code Status: Full Hospital Classification Declaration: Based on this initial evaluation, and depending on the patient's clinical course, I anticipate that this patient will require hospitalization for 1-2 days for R hip fracture, syncope, MARYANNE and close respiratory/hemodynamic monitoring. Disposition: Once the patient is stable to leave the hospital, I anticipate the patient will likely be discharged to the following environment: SNF vs ARU Discussed with patient/family, nursing staff, SW/CM, ortho, cardiology regarding clinical status, treatment course, and disposition planning. Time of note may not reflect time of encounter. Subjective Date patient seen: Jan 21, 2018 Time patient seen: 12:00 Allergies: Coded Allergies: No Known Allergies (Unverified , 01/17/18) Subjective - s/p right ORIF POD#2 - s/p 2 units pRBC - denies dizziness, chest pain, sob, palpitations, n/v, abdominal pain - pain well controlled - denies flatus - afebrile Objective Last 24 Hour Vital Signs Date Time Temp Pulse Resp B/P (MAP) Pulse Ox O2 Delivery O2 Flow Rate FiO2 01/21/18 21:00 87 20 95 Nasal Cannula 3.0 32 01/21/18 21:00 91 20 98 Nasal Cannula 3.0 32 01/21/18 20:00 91 01/21/18 20:00 98.2 90 22 110/53 100 Nasal Cannula 3.0 98.2 01/21/18 19:30 Nasal Cannula 3.0 32 01/21/18 19:30 Nasal Cannula 3.0 32 01/21/18 19:30 Nasal Cannula 3.0 32 01/21/18 19:30 97 Nasal Cannula 3.0 32 01/21/18 16:00 97.9 88 20 110/49 100 Nasal Cannula 3.0 97.9 01/21/18 16:00 91 01/21/18 13:35 Nasal Cannula 01/21/18 13:35 Nasal Cannula 01/21/18 12:00 92 01/21/18 12:00 98.1 88 20 106/52 93 Nasal Cannula 3.0 98.1 01/21/18 08:00 93 01/21/18 08:00 99.3 95 20 115/51 98 Nasal Cannula 3.0 99.3 01/21/18 07:15 94 20 99 Nasal Cannula 3.0 32 01/21/18 07:05 88 18 95 Nasal Cannula 3.0 32 01/21/18 07:00 95 Nasal Cannula 3.0 32 01/21/18 07:00 Nasal Cannula 3.0 32 01/21/18 04:00 89 01/21/18 04:00 97.0 89 20 111/50 91 Nasal Cannula 3.0 97.0 01/21/18 01:31 Nasal Cannula 3.0 32 01/21/18 01:30 Nasal Cannula 3.0 32 01/21/18 00:00 98.1 92 20 114/69 96 Nasal Cannula 3.0 98.1 01/21/18 00:00 92 Intake and Output 01/20/18 01/21/18 19:00 07:00 Intake Total 450 ml 28 ml Output Total 600 ml 120 ml Balance -150 ml -92 ml IV Total 450 ml 28 ml Output Urine Total 600 ml 120 ml # Voids 1 Laboratory Tests 01/21/18 06:50: White Blood Count 8.7, Red Blood Count 2.23L, Hemoglobin 7.7L, Hematocrit 21.8L , Mean Corpuscular Volume 98, Mean Corpuscular Hemoglobin 34.7H, Mean Corpuscular Hemoglobin Concent 35.6, Red Cell Distribution Width 14.0, Platelet Count 115L, Mean Platelet Volume 5.4L, Neutrophils (%) (Auto) , Lymphocytes (%) (Auto) , Monocytes (%) (Auto) , Eosinophils (%) (Auto) , Basophils (%) (Auto) , Differential Total Cells Counted 100, Neutrophils % (Manual) 63, Lymphocytes % ( Manual) 27, Monocytes % (Manual) 1, Eosinophils % (Manual) 9H, Basophils % ( Manual) 0, Band Neutrophils 0, Platelet Estimate DecreasedL, Platelet Morphology Normal, Polychromasia 1+, Hypochromasia 1+, Anisocytosis 1+, Sodium Level 137, Potassium Level 4.1, Chloride Level 108H, Carbon Dioxide Level 22, Anion Gap 7, Blood Urea Nitrogen 22H, Creatinine 0.9, Estimat Glomerular Filtration Rate , Glucose Level 107H, Calcium Level 8.3L, Total Bilirubin 0.9, Aspartate Amino Transf (AST/SGOT) 34, Alanine Aminotransferase (ALT/SGPT) 13, Alkaline Phosphatase 81, Total Protein 5.7L, Albumin 2.3L, Globulin 3.4, Albumin /Globulin Ratio 0.7L Height (Feet): 5 Height (Inches): 6.00 Weight (Pounds): 135 General Appearance: no apparent distress, alert EENT: PERRL/EOMI Neck: non-tender, normal alignment, supple Cardiovascular: normal peripheral pulses, normal rate, regular rhythm Respiratory/Chest: chest wall non-tender, lungs clear, normal breath sounds Abdomen: normal bowel sounds, non tender, soft Neurologic: apple picker II-XII grossly normal, no motor/sensory deficits, alert, oriented x 3 Isabel Skinner N.P. Jan 21, 2018 23:20
[2018-01-22] VITALS: BP 106/47
[2018-01-22] MEDS: Albuterol/Ipratropium 3ml neb HHN SCH ×3 (01:00→13:15)
[2018-01-22 04:00] VITALS: BP 114/54
--- NOTE | 2018-01-22 07:11 | 48 Hour Post Anesthesia Eval ---
Post Anesthesia Evaluation Procedure: r femur orif Date of Evaluation: Jan 22, 2018 Time of Evaluation: 07:11 Blood Pressure Systolic: 114 0: 54 Pulse Rate: 80 Temperature (Fahrenheit): 98.0 O2 Sat by Pulse Oximetry: 98 Airway: patent Nausea: No Vomiting: No Hydration Status: adequate Cardiopulmonary Status: stable at this time Mental Status/LOC: patient returned to baseline Follow-up Care/Observations: na Post-Anesthesia Complications: none Follow-up care needed: N/A LIZA CORBETT CRNA Jan 22, 2018 07:11
[2018-01-22 08:00] VITALS: BP 118/59
[2018-01-22] MEDS: Docusate 100mg cap ORAL SCH ×3 (08:28→17:12)
[2018-01-22] MEDS: Aspirin EC 81mg tab ORAL SCH (08:28)
[2018-01-22] MEDS: celeBREX 200mg Cap **SURGERY PATIENTS ONLY ORAL SCH (08:31)
[2018-01-22] MEDS: Enoxaparin 30mg Inj SUBQ SCH (08:34)
[2018-01-22 11:23] LABS: BASOPHILS % (AUTO) 1.2 % (0.0-2.0); EOSINOPHILS % (AUTO) 8.8 % (0.0-3.0); HEMATOCRIT 25.7 % (42.0-52.0); LYMPHOCYTES % (AUTO) 16.8 % (20.0-45.0); MEAN CORPUSCULAR VOLUME 98 FL (80-99); MONOCYTES % (AUTO) 12.2 % (1.0-10.0); NEUTROPHILS % (AUTO) 61.1 % (45.0-75.0); PLATELET COUNT 131 K/UL (150-450); RED BLOOD COUNT 2.61 M/UL (4.70-6.10); RED CELL DISTRIBUTION WIDTH 14.4 % (11.6-14.8); WHITE BLOOD COUNT 8.2 K/UL (4.8-10.8)
[2018-01-22 11:29] LABS: ANION GAP 8 mmol/L (5-15); BLOOD UREA NITROGEN 15 mg/dL (7-18); CALCIUM 8.3 MG/DL (8.5-10.1); CARBON DIOXIDE 23 MMOL/L (21-32); CHLORIDE 106 MMOL/L (98-107); CREATININE 0.7 MG/DL (0.55-1.30); POTASSIUM 3.7 MMOL/L (3.5-5.1); SODIUM 137 MMOL/L (136-145)
[2018-01-22 12:00] VITALS: BP 104/54
--- NOTE | 2018-01-22 13:07 | Cardiac Electrophysiology PN ---
Assessment/Plan Assessment/Plan 1. Status post fall versus syncope. Ruled out for myocardial infarction. EF 65 % 2. History of asthma, on albuterol. 3. Right hip fracture. S/P ORIF by Dr Clark. No cardiac events 4. Hypotension.No further hypotension. 5. Anemia Hb dropped form 9 to 7.2. S/P prbc 6. Short burst of atrial fib, no recurrence 7. Short AIVR, No recurrence DW RN Subjective Subjective Comfortable in NAD. Had PRBC again. Had short run of atrial fib and AIVR Objective Last 24 Hour Vital Signs Date Time Temp Pulse Resp B/P (MAP) Pulse Ox O2 Delivery O2 Flow Rate FiO2 01/22/18 12:00 97.5 78 19 104/54 98 Room Air 97.5 01/22/18 08:00 98.1 84 20 118/59 94 Room Air 98.1 01/22/18 08:00 89 01/22/18 07:59 78 18 95 Room Air 21 01/22/18 07:52 81 18 95 Room Air 21 01/22/18 07:52 Room Air 21 01/22/18 07:52 95 Room Air 01/22/18 07:11 208.4 80 98 01/22/18 04:00 88 01/22/18 04:00 98.4 90 20 114/54 97 Nasal Cannula 3.0 98.4 01/22/18 01:01 Nasal Cannula 3.0 32 01/22/18 01:01 Nasal Cannula 3.0 32 01/22/18 00:00 98.1 95 22 106/47 97 Nasal Cannula 3.0 98.1 01/22/18 00:00 92 01/21/18 21:00 87 20 95 Nasal Cannula 3.0 32 01/21/18 21:00 91 20 98 Nasal Cannula 3.0 32 01/21/18 20:00 91 01/21/18 20:00 98.2 90 22 110/53 100 Nasal Cannula 3.0 98.2 01/21/18 19:30 Nasal Cannula 3.0 32 01/21/18 19:30 Nasal Cannula 3.0 32 01/21/18 19:30 Nasal Cannula 3.0 32 01/21/18 19:30 97 Nasal Cannula 3.0 32 01/21/18 16:00 97.9 88 20 110/49 100 Nasal Cannula 3.0 97.9 01/21/18 16:00 91 01/21/18 13:35 Nasal Cannula 01/21/18 13:35 Nasal Cannula Intake and Output 01/21/18 01/22/18 19:00 07:00 Intake Total 1470 ml 973 ml Output Total 700 ml 600 ml Balance 770 ml 373 ml Intake Oral 800 ml 200 ml IV Total 670 ml 773 ml Output Urine Total 700 ml 600 ml Laboratory Tests Test 01/22/18 10:07 White Blood Count 8.2 K/UL (4.8-10.8) Red Blood Count 2.61 M/UL (4.70-6.10) L Hemoglobin 9.0 G/DL (14.2-18.0) L Hematocrit 25.7 % (42.0-52.0) L Mean Corpuscular Volume 98 FL (80-99) Mean Corpuscular Hemoglobin 34.6 PG (27.0-31.0) H Mean Corpuscular Hemoglobin Concent 35.2 G/DL (32.0-36.0) Red Cell Distribution Width 14.4 % (11.6-14.8) Platelet Count 131 K/UL (150-450) L Mean Platelet Volume 5.5 FL (6.5-10.1) L Neutrophils (%) (Auto) 61.1 % (45.0-75.0) Lymphocytes (%) (Auto) 16.8 % (20.0-45.0) L Monocytes (%) (Auto) 12.2 % (1.0-10.0) H Eosinophils (%) (Auto) 8.8 % (0.0-3.0) H Basophils (%) (Auto) 1.2 % (0.0-2.0) Sodium Level 137 MMOL/L (136-145) Potassium Level 3.7 MMOL/L (3.5-5.1) Chloride Level 106 MMOL/L (98-107) Carbon Dioxide Level 23 MMOL/L (21-32) Anion Gap 8 mmol/L (5-15) Blood Urea Nitrogen 15 mg/dL (7-18) Creatinine 0.7 MG/DL (0.55-1.30) Estimat Glomerular Filtration Rate mL/min (>60) Glucose Level 122 MG/DL (74-106) H Calcium Level 8.3 MG/DL (8.5-10.1) L Objective HEAD AND NECK: No JVD or carotid bruit. LUNGS: Clear. CARDIOVASCULAR: Regular S1 and S2 with no gallop or murmur. ABDOMEN: Soft. EXTREMITIES: No pitting edema. S/P Right hip surgery KINZA MCCOY Jan 22, 2018 13:07
[2018-01-22] MEDS ORDERED: NS 275ml ONE (15:04)
[2018-01-22 16:00] VITALS: BP 101/55
--- NOTE | 2018-01-22 17:17 | Discharge Summary ---
Discharge Summary Hospital Course Date of Admission Jan 17, 2018 at 18:45 Date of Discharge 01/22/18 Admitting Diagnosis right hip fracture/SYNCOPE Reason for Hospitalization: R hip fracfture, syncope HPI 72y/o male with pmh of CAD, HTN, PVD, COPD, BPH, tobacco abuse who presents with R hip pain after a fall. Pt states he was in bathroom and felt lightheaded and the room spinning. He then fell to the floor and had brief LOC. He states when he awoke he had full recollection of events. He landed on R side. He couldn 't move or stand up w/o assistance. Denies f/c, n/v, d/c, chest pain, SOB. Pt states he can walk several blocks and at least a flight of stairs. He walks on own and sometimes uses a cane. Activity limited by leg pain/weakness. In ED, pt found to have R hip fracture. Consultations Orthopedic surgery, Cardiology Procedures R hip ORIF on 01/19/18 Hospital Course Pt was admitted to [facility]. He was ruled out for ACS with serial trop/EKG. Syncope likely 2/2 orthostatic hypotension in setting of lasix and aldactone use so these were held. Pt underwent R hip ORIF on 01/19/18. Course complicated by acute blood loss anemia required pRBC transfusion. Hypotension improved with IVFs. Once pain controlled, tolerating PO and hgb stable, pt was discharged to ARU. Discharge physical exam: General: alert, cooperative, no distress, appears stated age Head: normocephalic, without obvious abnormality, atraumatic Eyes: conjunctivae/corneas clear. PERRL, EOM's intact Throat: lips, mucosa, and tongue normal. MMM Neck: supple, symmetrical, trachea midline, and no JVD Lungs: clear to auscultation bilaterally Heart: regular rate and rhythm, S1, S2 normal, no murmur, click, rub or gallop Abdomen: soft, non-tender, non-distended, bowel sounds normal Extremities: extremities normal, atraumatic, no cyanosis or edema Pulses: 2+ and symmetric Skin: skin color, texture, turgor normal;dressing c/d/i Neurologic: grossly normal, no focal deficits Discharge diagnoses: (1) Fracture of right hip ICD Codes: S72.001A - Fracture of unspecified part of neck of right femur, initial encounter for closed fracture SNOMED: 605959704 (2) Syncope ICD Codes: R55 - Syncope and collapse SNOMED: 957622049 (3) MARYANNE (acute kidney injury) ICD Codes: N17.9 - Acute kidney failure, unspecified SNOMED: 73870369 (4) Hyponatremia ICD Codes: E87.1 - Hypo-osmolality and hyponatremia SNOMED: 04001590 (5) CAD (coronary artery disease) ICD Codes: I25.10 - Atherosclerotic heart disease of [place] coronary artery without angina pectoris SNOMED: 33776294 (6) COPD (chronic obstructive pulmonary disease) ICD Codes: J44.9 - Chronic obstructive pulmonary disease, unspecified SNOMED: 37974844 (7) HTN (hypertension) ICD Codes: I10 - Essential (primary) hypertension SNOMED: 18174730 (8) HLD (hyperlipidemia) ICD Codes: E78.5 - Hyperlipidemia, unspecified SNOMED: 58937839 (9) BPH (benign prostatic hyperplasia) ICD Codes: N40.0 - Benign prostatic hyperplasia without lower urinary tract symptoms SNOMED: 570792412 (10) Tobacco abuse ICD Codes: Z72.0 - Tobacco use SNOMED: 584405581 (11) PVD (peripheral vascular disease) ICD Codes: I73.9 - Peripheral vascular disease, unspecified SNOMED: 732096736 (12) Alcoholic liver disease Assessment & Plan: Cirrhosis ICD Codes: K70.9 - Alcoholic liver disease, unspecified SNOMED: 88827262 (13) Acute blood loss anemia ICD Codes: D62 - Acute posthemorrhagic anemia Discharge Medications Continued Medications: Acetaminophen* (Tylenol Extra Strength*) 500 Mg Tablet 500 MG ORAL Q6H PRN for Mild Pain/Temp > 100.5, TAB 0 Refills Albuterol Sulfate (Ventolin Hfa) 18 Gm Hfa.aer.ad 1 PUFF INH EVERY 6 HOURS, #18 GM 0 Refills Albuterol Sulfate* (Proair Hfa*) 8.5 Gm Hfa.aer.ad 1 PUFF INH Q6H, #8.5 GM 0 Refills Aspirin* (Aspir 81*) 81 Mg Tablet.dr 81 MG ORAL DAILY, TAB Finasteride* (Proscar*) 5 Mg Tablet 5 MG ORAL DAILY, #30 TAB 0 Refills Folic Acid* (Folic Acid*) 1 Mg Tablet 1 MG ORAL DAILY, TAB Lactulose (Lactulose) 10 Gm/15 Ml Solution 10 GM PO Pantoprazole* (Pantoprazole*) 40 Mg Tablet.dr 40 MG ORAL DAILY, TAB Tamsulosin Hcl (Tamsulosin Hcl*) 0.4 Mg Cap.er.24h 0.4 MG ORAL BEDTIME, CAP Trazodone Hcl* (Desyrel*) 50 Mg Tablet 50 MG ORAL BEDTIME, TAB Discontinued Medications: Furosemide* (Lasix*) 80 Mg Tablet 80 MG ORAL BID, TAB Spironolactone* (Spironolactone*) 100 Mg Tablet 100 MG ORAL DAILY, TAB Discharge Condition Upon Discharge: stable Discharge [facility]position [facility] [place] Discharge Diagnoses: Amor Perdomo M.D. Jan 22, 2018 17:17
--- NOTE | 2018-01-22 23:31 | General Progress Note ---
Assessment/Plan Assessment/Plan #. Anemia due to underlying chronic disease. --> Continue to closely monitor and trend. --> Anemia workup completed. Results: Iron 80, TIBC 245, Folate 47.5, B12 441 --> Patient received prbc yesterday, hemoglobin levels today are >9. --> Hemoglobin goal is >7, trend daily. #. Thrombocytopenia. Okay to continue with surgery. --> Okay to continue Lovenox daily for prophylaxis. ---> Negative hepatitis panel and human immunodeficiency virus. --> Improving. #. Coagulopathy, potentially secondary to liver disease. --> S/P ab ultrasound, was suboptimal and revealed no significant results #. Anemia due to orthopedic procedure, currently downtrended, potentially secondary to hemodilution. --> Again, continue to closely monitor. --> Does not need iron at this time. #. Syncope, probably due to anemia versus vertigo versus other causes. #. Tobacco use. #. Alcoholic liver disease. #. History of cirrhosis. Subjective Date patient seen: Jan 22, 2018 Constitutional: Denies: no symptoms, chills, diaphoresis, fever, malaise, weakness, other HEENT: Denies: no symptoms, eye pain, blurred vision, tearing, double vision, ear pain, ear discharge, nose pain, nose congestion, throat pain, throat swelling, mouth pain, mouth swelling, other Cardiovascular: Denies: no symptoms, chest pain, edema, irregular heart rate, lightheadedness, palpitations, syncope, other Respiratory: Denies: no symptoms, cough, orthopnea, shortness of breath, SOB with excertion, SOB at rest, sputum, stridor, wheezing, other Gastrointestinal/Abdominal: Denies: no symptoms, abdomen distended, abdominal pain, black stools, tarry stools, blood in stool, constipated, diarrhea, difficulty swallowing, nausea, poor appetite, poor fluid intake, rectal bleeding , vomiting, other Genitourinary: Denies: no symptoms, burning, discharge, frequency, flank pain, hematuria, incontinence, pain, urgency, other Hematologic/Lymphatic: Reports: anemia Allergies: Coded Allergies: No Known Allergies (Unverified , 01/17/18) Subjective No major events overnight. Afebrile. Pending dc. Objective Last 24 Hour Vital Signs Date Time Temp Pulse Resp B/P (MAP) Pulse Ox O2 Delivery O2 Flow Rate FiO2 01/22/18 19:29 98.2 01/22/18 16:00 83 01/22/18 16:00 98.2 88 20 101/55 97 Room Air 98.2 01/22/18 13:23 84 18 95 Room Air 21 01/22/18 13:15 79 18 96 Room Air 21 01/22/18 12:00 97.5 78 19 104/54 98 Room Air 97.5 01/22/18 12:00 77 01/22/18 08:00 98.1 84 20 118/59 94 Room Air 98.1 01/22/18 08:00 89 01/22/18 07:59 78 18 95 Room Air 21 01/22/18 07:52 81 18 95 Room Air 21 01/22/18 07:52 Room Air 21 01/22/18 07:52 95 Room Air 01/22/18 07:11 208.4 80 98 01/22/18 04:00 88 01/22/18 04:00 98.4 90 20 114/54 97 Nasal Cannula 3.0 98.4 01/22/18 01:01 Nasal Cannula 3.0 32 01/22/18 01:01 Nasal Cannula 3.0 32 01/22/18 00:00 98.1 95 22 106/47 97 Nasal Cannula 3.0 98.1 01/22/18 00:00 92 Intake and Output 01/21/18 01/22/18 19:00 07:00 Intake Total 1470 ml 973 ml Output Total 700 ml 600 ml Balance 770 ml 373 ml Intake Oral 800 ml 200 ml IV Total 670 ml 773 ml Output Urine Total 700 ml 600 ml Laboratory Tests 01/22/18 10:07: White Blood Count 8.2, Red Blood Count 2.61L, Hemoglobin 9.0L, Hematocrit 25.7L , Mean Corpuscular Volume 98, Mean Corpuscular Hemoglobin 34.6H, Mean Corpuscular Hemoglobin Concent 35.2, Red Cell Distribution Width 14.4, Platelet Count 131L, Mean Platelet Volume 5.5L, Neutrophils (%) (Auto) 61.1, Lymphocytes (%) (Auto) 16.8L, Monocytes (%) (Auto) 12.2H, Eosinophils (%) (Auto) 8.8H, Basophils (%) (Auto) 1.2, Sodium Level 137, Potassium Level 3.7, Chloride Level 106, Carbon Dioxide Level 23, Anion Gap 8, Blood Urea Nitrogen 15, Creatinine 0.7, Estimat Glomerular Filtration Rate , Glucose Level 122H, Calcium Level 8.3L Height (Feet): 5 Height (Inches): 6.00 Weight (Pounds): 135 General Appearance: no apparent distress EENT: normal ENT inspection Neck: supple Respiratory/Chest: lungs clear Abdomen: non tender Arvin Cho Jan 22, 2018 23:31
--- NOTE | 2018-01-24 13:03 | Diagnostic Imaging Report ---
APPROVED REPORT CPT Code: 67343 Vascular Symptoms Syncope Doppler Spectral Velocity Analysis RightLeft arteries. The Doppler spectral flow analysis indicates the degree of stenosis is minimal (20-30%) in the common carotid artery, mild to moderate (40-50%) in the internal carotid artery, and moderate (60-70%) in the external carotid artery. VERTEBRAL - The vertebral artery is patent, without evidence of stenosis or steal. arteries. The Doppler spectral flow analysis indicates the degree of stenosis is moderate (60-70%) in the common carotid artery, moderate (50-60%) in the internal carotid artery, and moderate (40-50%) in the external carotid artery. VERTEBRAL - The vertebral artery is patent, without evidence of stenosis or steal.
== END 2018-01-22 19:48 | DRG 481 ==
LOC: EDBD 17:45 → EDBEDREQ 18:04 → EMR 18:42 → 2E 18:45 → EDBEDREQ 19:09 → EDBEDREQSVC 19:09 → EDBEDREQ 20:49 → 3E 01-19 18:26 → 2E 01-20 15:34
PROC: 0QS604Z Reposition Right Upper Femur with Internal Fixation Device, Open Approach (ICD-10-PCS; principal; 2018-01-19 16:00)
DX: S72.141A Displaced intertrochanteric fracture of right femur, initial encounter for closed fracture (principal); N17.9 Acute kidney failure, unspecified; I95.9 Hypotension, unspecified; D69.6 Thrombocytopenia, unspecified; D68.9 Coagulation defect, unspecified; E87.1 Hypo-osmolality and hyponatremia; I48.91 Unspecified atrial fibrillation; J44.9 Chronic obstructive pulmonary disease, unspecified; D62 Acute posthemorrhagic anemia; W19.XXXA Unspecified fall, initial encounter; Y92.041 Bathroom in boarding-house as the place of occurrence of the external cause; R55 Syncope and collapse; I25.10 Atherosclerotic heart disease of native coronary artery without angina pectoris; I10 Essential (primary) hypertension; E78.5 Hyperlipidemia, unspecified; N40.0 Benign prostatic hyperplasia without lower urinary tract symptoms; Z72.0 Tobacco use; K70.9 Alcoholic liver disease, unspecified; I73.9 Peripheral vascular disease, unspecified; E86.0 Dehydration; D64.89 Other specified anemias; F10.11 Alcohol abuse, in remission
CPT/HCPCS: 36415; 71045; 72170; 76700; 80048; 80053; 82306; 82607; 82728; 82746; 83540; 83550; 83735; 83880; 84100; 84443; 84484; 85007; 85025; 85044; 85610; 86703; 86705; 86709; 86803; 86850; 86900; 86901; 86920; 87081; 87340; 93005; 93306; 93880; 94003; 94150; 94640; 94664; 94760; 99285; J7620

== ENCOUNTER 2019-02-16 17:44 | Inpatient (IN) | payer MEDICAID, MEDICARE ==
[~2019-02-16] VITALS: Ht 175.3 cm; Wt 62.3 kg
[~2019-02-16 17:44] MED LIST changes: +ASPIR 8181 MG ORAL; -Bupivacaine 0.75% 30ml vial INJ ONE; +FOLIC ACID1 MG ORAL; +FUROSEMIDE80 M1 ORAL; +LACTULOSE10 GM/153 PO; -Lidocaine 1% MPF 10mg/ml 5ml INJ ONE; +PANTOPRAZOLE SO40 MG ORAL; +PROAIR HFA8.5 GM INH; +PROSCAR5 MG ORAL; +SPIRONOLACTONE100 MG ORAL; +TAMSULOSIN HCL0.4 MG ORAL; +TRAZODONE HCL50 MG ORAL; +TYLENOL EXTRA500 MG ORAL; +VENTOLIN HFA18 GM INH; -oxyCODONE HCL/Acetaminophen 5/325mg ORAL ONE
[2019-02-16 18:00] VITALS: BP 115/58
[2019-02-16] MEDS ORDERED: Morphine Sulfate 4mg/ml Inj (IV USE ONLY) IVP ONE (18:00)
[2019-02-16 18:35] LABS: HEMATOCRIT 39.5 % (42.0-52.0); HEMOGLOBIN 13.5 G/DL (14.2-18.0); MEAN CORPUSCULAR VOLUME 99 FL (80-99); PLATELET COUNT 72 K/UL (150-450); WHITE BLOOD COUNT 3.7 K/UL (4.8-10.8)
[2019-02-16 18:40] LABS: INR 1.2 (0.9-1.1)
[2019-02-16 18:54] LABS: ANION GAP 11 mmol/L (5-15); BLOOD UREA NITROGEN 18 mg/dL (7-18); CALCIUM 8.8 MG/DL (8.5-10.1); CARBON DIOXIDE 22 MMOL/L (21-32); CHLORIDE 101 MMOL/L (98-107); CREATININE 0.9 MG/DL (0.55-1.30); POTASSIUM 4.2 MMOL/L (3.5-5.1); SODIUM 134 MMOL/L (136-145)
[2019-02-16 18:57] LABS: ALANINE AMINOTRANSFERASE 40 U/L (12-78); ALBUMIN 3.3 G/DL (3.4-5.0); ALBUMIN/GLOBULIN RATIO 0.8 (1.0-2.7); ALKALINE PHOSPHATASE 101 U/L (46-116); ASPARTATE AMINO TRANSFERASE 47 U/L (15-37); BILIRUBIN,TOTAL 0.6 MG/DL (0.2-1.0)
--- NOTE | 2019-02-16 19:00 | Diagnostic Imaging Report ---
EXAM: XR Left Hip With Pelvis When Performed, 1 View CLINICAL HISTORY: PAIN TECHNIQUE: Frontal view of the left hip, with pelvis when performed. COMPARISON: None. FINDINGS: Bones/joints: Probable left comminuted minimally displaced superior pubic ramus fracture which extends into the symphysis pubis. No left inferior pubic ramus fracture seen. Osteopenia. No dislocation. Soft tissues: Unremarkable. Vasculature: Partially seen superficial femoral artery stent. ASVD. Partially seen left iliac artery stent. IMPRESSION: 1. Probable left comminuted minimally displaced superior pubic ramus fracture which extends into the symphysis pubis. 2. No left inferior pubic ramus fracture seen. 3. Consider cross sectional imaging for more sensitive evaluation.
--- NOTE | 2019-02-16 19:03 | Diagnostic Imaging Report ---
EXAM: XR Right Hip With Pelvis When Performed, 1 View CLINICAL HISTORY: PAIN TECHNIQUE: Frontal view of the right hip, with pelvis when performed. COMPARISON: No relevant prior studies available. FINDINGS: Bones/joints: Right proximal femoral intramedullary toshia with traversing head and neck interference screw. Sub-trochanteric fracture is probably chronic, some component of acute injury/reinjury cannot be definitively excluded without prior imaging comparison. Likely left superior pubic ramus comminuted fracture with extension likely into the left pubic symphysis. Possible left inferior pubic ramus fracture incompletely visualized. Osteopenia. No dislocation. Soft tissues: Unremarkable. Other findings: ASVD. IMPRESSION: 1. Right proximal femoral intramedullary toshia with traversing head and neck interference screw. 2. Sub-trochanteric fracture is probably chronic, some component of acute injury/reinjury cannot be definitively excluded without prior imaging comparison. 3. If there is continued concern for right periprosthetic fracture, consider cross-sectional imaging with metal artifact reduction technique and/or follow-up radiographs in 7-10 days. 4. Strongly recommend correlation with prior imaging. 5. Likely left superior pubic ramus comminuted fracture with extension likely into the left pubic symphysis. 6. Possible left inferior pubic ramus fracture incompletely visualized.
[2019-02-16 19:05] VITALS: BP 141/65
[2019-02-16] MEDS ORDERED: CENTRUM SILVER1 EAC2 PO (20:29)
[2019-02-16] MEDS ORDERED: ADVAIR 100-501 EACH INH (20:29)
[2019-02-16] MEDS ORDERED: VISINE TEARS DR15 ML OP (20:29)
--- NOTE | 2019-02-16 20:30 | Emergency Room Report ---
History of Present Illness General Chief Complaint: Multiple Trauma/Fall Source: Patient Present Illness HPI 73-year-old male presents ED for evaluation. Brought in by EMS. Patient had a mechanical fall today. Tripped while using his walker. Plating of left hip pain. States he had surgery on his right hip last month and has toshia in place. Had surgery here at [facility] in December. Pain is sharp, 10 out of 10, nonradiating. Unable to bear weight. Denies any other injuries. No other aggravating relieving factors. Denies any other associated symptoms Allergies: Coded Allergies: TETRACYCLINE (Unverified Allergy, Unknown, 02/16/19) Patient History Past Medical History: COPD Pertinent Family History: none Social History: Denies: smoking, alcohol use, drug use Immunizations: UTD Reviewed Nursing Documentation: PMH: Agreed; PSxH: Agreed Nursing Documentation-PMH Past Medical History: No Stated History Hx COPD: Yes Review of Systems All Other Systems: negative except mentioned in HPI Physical Exam Vital Signs Date Time Temp Pulse Resp B/P (MAP) Pulse Ox O2 Delivery O2 Flow Rate FiO2 02/16/19 17:33 98.1 73 16 133/67 99 Room Air Sp02 EP Interpretation: reviewed, normal General Appearance: no apparent distress, alert, GCS 15, non-toxic Head: normocephalic, atraumatic Eyes: bilateral eye normal inspection, bilateral eye PERRL ENT: hearing grossly normal, normal pharynx, no angioedema, normal voice Neck: full range of motion, supple/symm/no masses Respiratory: chest non-tender, lungs clear, normal breath sounds, speaking full sentences Cardiovascular #1: regular rate, rhythm, no edema Cardiovascular #2: 2+ carotid (R), 2+ carotid (L), 2+ radial (R), 2+ radial (L) , 2+ dorsalis pedis (R), 2+ dorsalis pedis (L) Gastrointestinal: normal bowel sounds, non tender, soft, non-distended, no guarding, no rebound Rectal: deferred Genitourinary: normal inspection, no CVA tenderness Musculoskeletal: back normal, gait/station normal, decreased range of motion, tender - bilateral Hip Neurologic: alert, oriented x3, responsive, motor strength/tone normal, sensory intact, speech normal Psychiatric: judgement/insight normal, memory normal, mood/affect normal, no suicidal/homicidal ideation Reflexes: 3+ bicep (R), 3+ bicep (L), 3+ tricep (R), 3+ tricep (L), 3+ knee (R) , 3+ knee (L) Skin: normal color, no rash, warm/dry, well hydrated Lymphatic: no adenopathy Medical Decision Making Diagnostic Impression: Primary Impression: Multiple injuries due to trauma Additional Impression: Fracture of superior pubic ramus Qualified Codes: S32.512A - Fracture of superior rim of left pubis, initial encounter for closed fracture ER Course Hospital Course 73-year-old male presents to ED with L hip pain s/p fall Differential diagnoses include: fracture, dislocation, contusion Clinical course Patient placed on stretcher. After initial history and physical I ordered labs , pain medication and imaging studies Labs reviewed- no leukocytosis noted, electrolytes okay, hemoglobin/hematocrit okay Left hip x-ray shows superior pubic rami fracture extending to pubic symphysis. Right hip x-ray shows hardware in place with no acute fracture Discussed case with Dr. Khan (orthopedics); states that this is not an operative case. However patient will likely have problems walking given problems with his right hip patient states due to continued problems with his right hip he is unable to bear weight on the left. Normally uses a walker. I do not believe it is safe for discharge at this time. Case discussed with Dr. Trujillo who agreed to accept the patient to his service for further care and support i. I feel this is a highly complex case requiring extensive working including EKG/Rhythm strip, Xray/CT/US, Blood/urine lab work, repeat exams while in ED, and administration of strong opiates/narcotics for pain control, admission to hospital or close patient follow up. Diagnosis - multiple injuries due to trauma, fracture of superior pubic rami Admitted to floor in serious condition Labs Test 02/16/19 18:05 White Blood Count 3.7 K/UL (4.8-10.8) Red Blood Count 4.00 M/UL (4.70-6.10) Hemoglobin 13.5 G/DL (14.2-18.0) Hematocrit 39.5 % (42.0-52.0) Mean Corpuscular Volume 99 FL (80-99) Mean Corpuscular Hemoglobin 33.9 PG (27.0-31.0) Mean Corpuscular Hemoglobin Concent 34.3 G/DL (32.0-36.0) Red Cell Distribution Width 14.0 % (11.6-14.8) Platelet Count 72 K/UL (150-450) Mean Platelet Volume 5.6 FL (6.5-10.1) Neutrophils (%) (Auto) % (45.0-75.0) Lymphocytes (%) (Auto) % (20.0-45.0) Monocytes (%) (Auto) % (1.0-10.0) Eosinophils (%) (Auto) % (0.0-3.0) Basophils (%) (Auto) % (0.0-2.0) Differential Total Cells Counted 100 Neutrophils % (Manual) 53 % (45-75) Lymphocytes % (Manual) 35 % (20-45) Monocytes % (Manual) 10 % (1-10) Eosinophils % (Manual) 0 % (0-3) Basophils % (Manual) 2 % (0-2) Band Neutrophils 0 % (0-8) Platelet Estimate Decreased Platelet Morphology Normal Red Blood Cell Morphology Normal Prothrombin Time 12.7 SEC (9.30-11.50) Prothromb Time International Ratio 1.2 (0.9-1.1) Activated Partial Thromboplast Time 29 SEC (23-33) Sodium Level 134 MMOL/L (136-145) Potassium Level 4.2 MMOL/L (3.5-5.1) Chloride Level 101 MMOL/L (98-107) Carbon Dioxide Level 22 MMOL/L (21-32) Anion Gap 11 mmol/L (5-15) Blood Urea Nitrogen 18 mg/dL (7-18) Creatinine 0.9 MG/DL (0.55-1.30) Estimat Glomerular Filtration Rate mL/min (>60) Glucose Level 111 MG/DL (74-106) Calcium Level 8.8 MG/DL (8.5-10.1) Total Bilirubin 0.6 MG/DL (0.2-1.0) Aspartate Amino Transf (AST/SGOT) 47 U/L (15-37) Alanine Aminotransferase (ALT/SGPT) 40 U/L (12-78) Alkaline Phosphatase 101 U/L (46-116) Total Protein 7.7 G/DL (6.4-8.2) Albumin 3.3 G/DL (3.4-5.0) Globulin 4.4 g/dL Albumin/Globulin Ratio 0.8 (1.0-2.7) Other X-Ray Diagnostic Results Other X-Ray Diagnostic Results #1: X-Ray ordered: R hip # of Views/Limited Vs Complete: 2 View Indication: Pain EP Interpretation: Yes Interpretation: no dislocation, no soft tissue swelling, no fractures, other - hardware in place Impression: No acute disease Electronically Signed by: Electronically signed by Paul Prabhakar MD Other X-Ray Diagnostic Results #2: X-Ray ordered: L hip # of Views/Limited Vs Complete: 2 View Indication: Pain EP Interpretation: Yes Interpretation: no dislocation, no soft tissue swelling, other - superior pubic rami fx extending into pubic symphysis Impression: Other - fx Electronically Signed by: Electronically signed by Paul Prabhakar MD Last Vital Signs Date Time Temp Pulse Resp B/P (MAP) Pulse Ox O2 Delivery O2 Flow Rate FiO2 02/16/19 19:05 98.1 82 18 141/65 97 Room Air Status: improved Disposition: ADMITTED INPATIENT Condition: Serious Paul Prabhakar MD Feb 16, 2019 20:30
[2019-02-16 22:05] VITALS: BP 138/59
[2019-02-16] MEDS ORDERED: LORazepam Inj 2mg/ml 1ml IV PRN (23:30)
[2019-02-17] VITALS: BP 159/83
[2019-02-17 04:00] VITALS: BP 123/89
[2019-02-17 08:00] VITALS: BP 154/69
[2019-02-17] MEDS: Albuterol 2mg Tab ORAL SCH ×4 (08:40→21:00)
[2019-02-17 11:00] LABS: HEMATOCRIT 39.3 % (42.0-52.0); HEMOGLOBIN 13.1 G/DL (14.2-18.0); MEAN CORPUSCULAR VOLUME 99 FL (80-99); PLATELET COUNT 62 K/UL (150-450); RED BLOOD COUNT 3.95 M/UL (4.70-6.10); RED CELL DISTRIBUTION WIDTH 14.4 % (11.6-14.8); WHITE BLOOD COUNT 4.1 K/UL (4.8-10.8)
[2019-02-17 11:10] LABS: ANION GAP 8 mmol/L (5-15); BLOOD UREA NITROGEN 18 mg/dL (7-18); CALCIUM 8.7 MG/DL (8.5-10.1); CARBON DIOXIDE 26 MMOL/L (21-32); CHLORIDE 102 MMOL/L (98-107); CREATININE 0.9 MG/DL (0.55-1.30); SODIUM 136 MMOL/L (136-145)
[2019-02-17] MEDS: Wixela 100/50 Inhaler - 60 dose INH SCH ×2 (11:29→22:04)
[2019-02-17 12:00] VITALS: BP 124/85
[2019-02-17] MEDS: Morphine Sulfate 2mg/ml Inj(IV/IM USE ONLY) IVP PRN ×3 (12:57→21:07)
[2019-02-17 15:54] VITALS: BP 107/51
--- NOTE | 2019-02-17 16:45 | History and Physical Report ---
DATE OF ADMISSION: 02/16/2019 REASON FOR ADMISSION: 1. Status post fall. 2. Hip pain. HISTORY OF PRESENT ILLNESS: The patient is a pleasant 73-year-old gentleman brought in by EMS overnight post mechanical fall. He tripped while using his walker. He has had surgery on his right hip last month and had a toshia in place. This was done here in December at [facility]. The patient was complaining of right hip pain, sharp, 10/10. When imaging was conducted, the patient was noted to have a left comminuted minimally displaced superior pubic ramus fracture, which extended into the symphysis pubis. The patient is resting comfortably currently. No nausea, vomiting, or diarrhea. No chest pain. ALLERGIES: Tetracycline. PAST MEDICAL HISTORY: 1. COPD. 2. Multiple falls. SOCIAL HISTORY: No tobacco, alcohol, or illicit drug use. FAMILY HISTORY: Noncontributory. PAST SURGICAL HISTORY: Right hip surgery. LABORATORY DATA: Labs dated 02/16/2019, sodium 134, potassium 4.2, creatinine 0.9, glucose 111. White cell count 3.7, hemoglobin 13.5, and platelet count 72. PHYSICAL EXAMINATION: VITAL SIGNS: Blood pressure 123/89, respiratory rate 18, pulse 76, and temperature 97.2. 94% oxygen saturation on room air. GENERAL: The patient is awake and alert, not otherwise in distress. HEENT: Extraocular muscles intact. No lymphadenopathy noted. CARDIOVASCULAR: S1, S2. No rubs or gallops. Regular rate. PULMONARY: Clear to auscultation bilaterally. No rales, rhonchi, or wheezes. ABDOMEN: Nondistended and nontender. EXTREMITIES: No edema noted. ASSESSMENT AND PLAN: 1. Chronic obstructive pulmonary disease. At this time, continue his inhaler therapies. The patient is stable from this standpoint. 2. Benign prostatic hypertrophy. Continue Flomax and Proscar. 3. Status post mechanical fall with displaced superior pubic ramus fracture. We will await orthopedic evaluation and suggestions. We will also have PT evaluate the patient for recommendations. Anticipate discharge either Monday or Monday pending orthopedic and PT evaluations. Alfonso Trujillo MD DR: RANDI JOB#: [id number] CC:
[2019-02-17 20:00] VITALS: BP 101/70
[2019-02-17] MEDS: TraZODone 50mg tab ORAL SCH (21:07)
[2019-02-17] MEDS: Tamsulosin 0.4mg cap ORAL SCH (21:07)
[2019-02-18] VITALS: BP 118/77
[2019-02-18 04:00] VITALS: BP 144/83
[2019-02-18] MEDS: Morphine Sulfate 2mg/ml Inj(IV/IM USE ONLY) IVP PRN (04:20)
[2019-02-18 08:00] VITALS: BP 95/65
[2019-02-18] MEDS: Wixela 100/50 Inhaler - 60 dose INH SCH ×2 (08:02→22:14)
[2019-02-18] MEDS: Albuterol 2mg Tab ORAL SCH ×4 (08:13→21:50)
--- NOTE | 2019-02-18 08:27 | Nephrology Progress Note ---
Assessment/Plan Assessment/Plan A/P 1) Pubis Ramus Fx- await Ortho and PT eval - start DC planning 2) Thrombocytopenia- consult Heme 3) DVT prophylaxsis- SCDs Subjective Date patient seen: Feb 18, 2019 Time patient seen: 08:23 ROS Limited/Unobtainable: No Allergies: Coded Allergies: TETRACYCLINE (Unverified Allergy, Unknown, 02/16/19) Subjective Patient with mild hip pain Objective Last 24 Hour Vital Signs Date Time Temp Pulse Resp B/P (MAP) Pulse Ox O2 Delivery O2 Flow Rate FiO2 02/18/19 08:07 69 20 92 Nasal Cannula 2.0 28 02/18/19 08:02 69 20 92 Nasal Cannula 2.0 28 02/18/19 08:01 Nasal Cannula 2.0 28 02/18/19 08:00 92 Nasal Cannula 2.0 28 02/18/19 04:00 98.3 66 19 144/83 (103) 99 02/18/19 00:00 97.9 65 17 118/77 (91) 97 02/17/19 22:05 62 18 95 Nasal Cannula 2.0 28 02/17/19 22:04 61 18 95 Nasal Cannula 2.0 28 02/17/19 21:00 Room Air 02/17/19 20:00 98.0 64 18 101/70 (80) 95 02/17/19 19:35 Nasal Cannula 2.0 28 02/17/19 19:35 95 18 Nasal Cannula 2.0 28 02/17/19 19:35 95 Nasal Cannula 2.0 28 02/17/19 15:54 98.6 77 17 107/51 (69) 97 02/17/19 12:00 97.9 52 19 124/85 (98) 98 02/17/19 11:34 97 Nasal Cannula 2.0 28 02/17/19 11:34 Nasal Cannula 2.0 28 02/17/19 11:34 87 18 Nasal Cannula 2.0 28 02/17/19 09:00 Room Air Intake and Output 02/17/19 02/18/19 19:00 07:00 Intake Total 800 ml 900 ml Output Total 900 ml Balance -100 ml 900 ml Intake Oral 300 ml 400 ml IV Total 500 ml 500 ml Output Urine Total 900 ml # Voids 3 Laboratory Tests 02/17/19 10:30: White Blood Count 4.1L, Red Blood Count 3.95L, Hemoglobin 13.1L, Hematocrit 39.3L, Mean Corpuscular Volume 99, Mean Corpuscular Hemoglobin 33.0H, Mean Corpuscular Hemoglobin Concent 33.2, Red Cell Distribution Width 14.4, Platelet Count 62L, Mean Platelet Volume 5.9L, Neutrophils (%) (Auto) , Lymphocytes (%) ( Auto) , Monocytes (%) (Auto) , Eosinophils (%) (Auto) , Basophils (%) (Auto) , Differential Total Cells Counted 100, Neutrophils % (Manual) 56, Lymphocytes % ( Manual) 29, Monocytes % (Manual) 11H, Eosinophils % (Manual) 3, Basophils % ( Manual) 1, Band Neutrophils 0, Platelet Estimate DecreasedL, Platelet Morphology Normal, Anisocytosis 1+, Sodium Level 136, Potassium Level 4.0, Chloride Level 102, Carbon Dioxide Level 26, Anion Gap 8, Blood Urea Nitrogen 18 , Creatinine 0.9, Estimat Glomerular Filtration Rate , Glucose Level 95, Calcium Level 8.7 Height (Feet): 5 Height (Inches): 9.00 Weight (Pounds): 138 General Appearance: no apparent distress, alert EENT: normal ENT inspection Neck: normal alignment, supple Cardiovascular: normal rate, regular rhythm Respiratory/Chest: lungs clear, normal breath sounds Abdomen: non tender, soft Edema: no edema noted Arm (L), no edema noted Arm (R), no edema noted Leg (L), no edema noted Leg (R), no edema noted Pedal (L), no edema noted Pedal (R), no edema noted Generalized Alfonso Trujillo MD Feb 18, 2019 08:27
[2019-02-18] MEDS: HYDROcodone/Acetamin 5/325 tab ORAL PRN ×2 (09:16→21:56)
[2019-02-18 12:00] VITALS: BP 130/70
[2019-02-18 16:00] VITALS: BP 133/62
[2019-02-18 20:00] VITALS: BP 117/56
[2019-02-18] MEDS: Tamsulosin 0.4mg cap ORAL SCH (21:50)
[2019-02-18] MEDS: TraZODone 50mg tab ORAL SCH (21:50)
[2019-02-19] VITALS: BP 121/59
[2019-02-19 04:00] VITALS: BP 114/62
[2019-02-19 07:17] LABS: HEMATOCRIT 31.9 % (42.0-52.0); HEMOGLOBIN 10.7 G/DL (14.2-18.0); MEAN CORPUSCULAR VOLUME 99 FL (80-99); PLATELET COUNT 63 K/UL (150-450); RED BLOOD COUNT 3.22 M/UL (4.70-6.10); RED CELL DISTRIBUTION WIDTH 14.4 % (11.6-14.8)
[2019-02-19 08:00] VITALS: BP 113/58
[2019-02-19] MEDS: Albuterol 2mg Tab ORAL SCH ×4 (08:28→21:02)
[2019-02-19] MEDS: HYDROcodone/Acetamin 5/325 tab ORAL PRN ×3 (08:29→22:41)
--- NOTE | 2019-02-19 09:14 | Discharge Instructions ---
Discharge Instructions Discharge Instructions Services at Discharge: day care Resume Normal Activity?: No Activity: as tolerated Follow Up Orders Follow Up With Heme/Onc For Congestive Heart Failure Reminder Report to your physician any weight gain of 5 pounds or more in one week. Alfonso Trujillo MD Feb 19, 2019 09:14
--- NOTE | 2019-02-19 09:16 | Nephrology Progress Note ---
Assessment/Plan Assessment/Plan A/P 1) Pubis Ramus Fx- await Ortho and PT eval - DC to SNF with Rehab 2) Thrombocytopenia- consulted Heme 3) DVT prophylaxsis- SCDs DC today once placement arranged and cleared by Heme Onc Subjective Date patient seen: Feb 19, 2019 Time patient seen: 09:15 ROS Limited/Unobtainable: No Allergies: Coded Allergies: TETRACYCLINE (Unverified Allergy, Unknown, 02/16/19) Subjective Patient with mild hip pain but improving Objective Last 24 Hour Vital Signs Date Time Temp Pulse Resp B/P (MAP) Pulse Ox O2 Delivery O2 Flow Rate FiO2 02/19/19 04:00 98.0 88 20 114/62 (79) 97 02/19/19 00:43 Room Air 02/19/19 00:00 99.1 87 20 121/59 (79) 96 02/18/19 22:26 98.1 02/18/19 22:15 72 18 94 Nasal Cannula 2.0 28 02/18/19 22:14 72 20 94 Nasal Cannula 2.0 28 02/18/19 20:00 99.0 84 20 117/56 (76) 95 84 02/18/19 19:30 93 Nasal Cannula 2.0 28 02/18/19 19:30 Nasal Cannula 2.0 28 02/18/19 16:00 98.1 78 20 133/62 (85) 96 02/18/19 12:00 97.3 75 19 130/70 (90) 95 Intake and Output 02/18/19 02/19/19 19:00 07:00 Intake Total 1800 ml 840 ml Output Total 1250 ml Balance 1800 ml -410 ml Intake Oral 1800 ml 840 ml Output Urine Total 1250 ml # Voids 5 Laboratory Tests 02/19/19 06:00: White Blood Count 4.0L, Red Blood Count 3.22L, Hemoglobin 10.7L, Hematocrit 31.9L, Mean Corpuscular Volume 99, Mean Corpuscular Hemoglobin 33.3H, Mean Corpuscular Hemoglobin Concent 33.6, Red Cell Distribution Width 14.4, Platelet Count 63L, Mean Platelet Volume 6.4L, Neutrophils (%) (Auto) , Lymphocytes (%) ( Auto) , Monocytes (%) (Auto) , Eosinophils (%) (Auto) , Basophils (%) (Auto) , Differential Total Cells Counted 100, Neutrophils % (Manual) 48, Lymphocytes % ( Manual) 34, Monocytes % (Manual) 13H, Eosinophils % (Manual) 5H, Basophils % ( Manual) 0, Band Neutrophils 0, Platelet Estimate DecreasedL, Platelet Morphology Normal, Hypochromasia 1+ Height (Feet): 5 Height (Inches): 9.00 Weight (Pounds): 138 General Appearance: no apparent distress, alert EENT: normal ENT inspection Neck: non-tender, normal alignment Cardiovascular: normal rate, regular rhythm Respiratory/Chest: lungs clear, normal breath sounds Abdomen: non tender, soft Edema: no edema noted Arm (L), no edema noted Arm (R), no edema noted Leg (L), no edema noted Leg (R), no edema noted Pedal (L), no edema noted Pedal (R), no edema noted Generalized Alfonso Trujillo MD Feb 19, 2019 09:16
[2019-02-19] MEDS: Wixela 100/50 Inhaler - 60 dose INH SCH ×2 (09:30→20:56)
[2019-02-19 12:00] VITALS: BP 114/45
[2019-02-19 16:00] VITALS: BP 128/55
[2019-02-19 20:00] VITALS: BP 147/73
[2019-02-19] MEDS: TraZODone 50mg tab ORAL SCH (21:02)
[2019-02-19] MEDS: Tamsulosin 0.4mg cap ORAL SCH (21:02)
[2019-02-20] VITALS: BP 144/78
[2019-02-20 04:00] VITALS: BP 132/89
[2019-02-20 08:00] VITALS: BP 117/50
--- NOTE | 2019-02-20 08:14 | Nephrology Progress Note ---
Assessment/Plan Assessment/Plan A/P 1) Pubis Ramus Fx-Ortho and PT eval - DC to SNF today 2) Thrombocytopenia- consulted Heme 3) DVT prophylaxsis- SCDs DC today. Clearance from Heme Subjective Date patient seen: Feb 20, 2019 Time patient seen: 08:13 ROS Limited/Unobtainable: No Allergies: Coded Allergies: TETRACYCLINE (Unverified Allergy, Unknown, 02/16/19) Subjective Patient awaiting DC to [facility] Objective Last 24 Hour Vital Signs Date Time Temp Pulse Resp B/P (MAP) Pulse Ox O2 Delivery O2 Flow Rate FiO2 02/20/19 07:12 96 Nasal Cannula 2.0 28 02/20/19 07:12 Nasal Cannula 2.0 28 02/20/19 04:00 98.0 73 18 132/89 (103) 19 02/20/19 00:00 98.5 92 18 144/78 (100) 96 02/19/19 23:11 97.7 02/19/19 21:00 Room Air 02/19/19 20:59 89 20 94 Nasal Cannula 2.0 28 02/19/19 20:59 94 Nasal Cannula 2.0 28 02/19/19 20:59 Nasal Cannula 2.0 28 02/19/19 20:56 89 20 94 Nasal Cannula 2.0 28 02/19/19 20:00 98.4 83 17 147/73 (97) 96 02/19/19 16:00 98.5 18 128/55 (79) 98 02/19/19 12:00 97.7 82 20 114/45 (68) 96 02/19/19 09:34 90 20 92 Nasal Cannula 2.0 28 02/19/19 09:31 92 Nasal Cannula 2.0 28 02/19/19 09:31 95 20 93 Nasal Cannula 2.0 28 02/19/19 09:31 Nasal Cannula 2.0 28 02/19/19 09:00 Room Air Intake and Output 02/19/19 02/20/19 18:59 06:59 Intake Total 980 ml 2040 ml Output Total 300 ml 1750 ml Balance 680 ml 290 ml Intake Oral 980 ml 2040 ml Output Urine Total 300 ml 1750 ml # Voids 4 8 Height (Feet): 5 Height (Inches): 9.00 Weight (Pounds): 137 General Appearance: no apparent distress EENT: normal ENT inspection Neck: normal alignment, supple Cardiovascular: normal rate, regular rhythm Respiratory/Chest: lungs clear, normal breath sounds Abdomen: non tender, soft Edema: no edema noted Arm (L), no edema noted Arm (R), no edema noted Leg (L), no edema noted Leg (R), no edema noted Pedal (L), no edema noted Pedal (R), no edema noted Generalized Alfonso Trujillo MD Feb 20, 2019 08:14
[2019-02-20] MEDS ORDERED: Aspirin Baby 81mg ORAL SCH (09:00)
[2019-02-20] MEDS: Albuterol 2mg Tab ORAL SCH ×2 (09:34→12:51)
[2019-02-20] MEDS: Wixela 100/50 Inhaler - 60 dose INH SCH (10:20)
[2019-02-20 11:57] VITALS: BP 117/63
--- NOTE | 2019-02-21 03:15 | Consultation ---
DATE OF CONSULTATION: 02/20/2019 NOTE: POOR AUDIO HEMATOLOGY/ONCOLOGY CONSULTATION CONSULTING PHYSICIAN: Red Cardona M.D. REFERRING PHYSICIAN: Alfonso Trujillo M.D. REASON FOR CONSULTATION: Thrombocytopenia and mild leukopenia. HISTORY OF PRESENT ILLNESS: The patient is a 73-year-old gentleman with history of multiple falls. The patient apparently has had a history of relatively right hip pain with persistent pain. The patient apparently had a mechanical fall, has presented to the hospital, has been evaluated with comminuted, minimally displaced superior pubic ramus fracture. During hospitalization, the patient thrombocytopenia and mild leukopenia. Therefore, this Hematology/Oncology consultation has been requested. from December of 2018, the patient was also noted to have platelet count approximately 88,000, currently 73,000. The patient does disclose that he has had a history of many years of alcohol use, however, he quit some years ago. The patient did apparently has a history of cirrhosis significantly improved. The patient continues to have significant bruising. The patient has had extensive amount of weight loss over the past many years. The patient did have a history of myocardial infarction apparently at age 45 per his report. The patient has a longstanding history of tobacco use and continues to smoke. PAST MEDICAL HISTORY: 1. COPD. 2. History of tobacco use. 3. 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 4. History of myocardial infarction per his history at age 45. 5. History of obesity. 6. History of weight loss. 7. History of bruising. 8. History of thrombocytopenia. 9. History of leukopenia. 10. History of multiple falls. 11. History of right hip fracture, post toshia placement. 12. History of recent comminuted fracture as noted above. PAST SURGICAL HISTORY: None. SOCIAL HISTORY: The patient has extensive history of tobacco use. The patient has had extensive history of alcohol abuse, which he has quit 9 years ago. FAMILY HISTORY: The patient denies any history of cancers in the family whatsoever. SOCIAL HISTORY: As noted above. REVIEW OF SYSTEMS: CONSTITUTIONAL: The patient denies any headaches. PULMONARY: The patient denies shortness of breath. The patient has had COPD. CARDIAC: The patient denies chest pain . GASTROINTESTINAL: The patient denies any abdominal pain. NEUROLOGIC: Nonfocal at this time. MUSCULOSKELETAL: The patient is complaining of severe left hip pain. PHYSICAL EXAMINATION: GENERAL: The patient is a very gentleman, who is extensively bruised in upper extremities. VITAL SIGNS: Temperature 98 degrees, pulse 73, breathing at 20, O2 saturation 96%. HEAD AND NECK: Left eye is artificial. Right eye appears anicteric. CHEST: Distant breath sounds. CARDIAC: Regular rhythm. ABDOMEN: Soft, nontender, and nondistended. Evidence of significant weight loss in the abdominal fat region. EXTREMITIES: There is no edema. SKIN: There is significant extensive bruising. MUSCULOSKELETAL: There is evidence of right hip postsurgical changes. There is left hip tenderness. LABORATORY AND DIAGNOSTIC DATA: Laboratory as well as investigation studies did demonstrate white count of 4 as of today, hemoglobin 10.7 with a platelet count of 63,000. The patient has approximately 13% monocytes with 5% eosinophils. The patient . The patient was noted to have thrombocytopenia at that point as well. The patient's PTT is noted to be , otherwise the patient protein of 7.7, albumin of 3.3 with sodium of 134. The patient's hip x-ray has been noted from 02/16/2019 demonstrated, however, left communicated, minimally displaced inferior pubic ramus fracture, which extends into the symphysis pubis. Cross-sectional imaging was recommended by radiologist. ASSESSMENT AND PLAN: 1. Thrombocytopenia, leukopenia, and anemia. The patient has had a noted history of thrombocytopenia in the past year. The patient apparently has had a known history of cirrhosis in the past not clear at this point in time. The patient has been told that his cirrhosis significantly has improved since he stopped drinking many years ago. The patient was noted to have full pancytopenia evaluation. He to go home. In view of the fact, the patient has had thrombocytopenia in the past, clearly the patient needs to have workup. However, if he wants to be discharged, we can plan on extensive outpatient evaluation. The patient B12, folate, hepatitis B, C, A as well as HIV needs to be evaluated. This can all be done as an outpatient basis. If the patient wishes , then he wants to do that. The patient is aware of possibility of underlying malignancies especially 06:09 cachexia. history of smoking with the patient's CT scan of chest lung cancer screening. 2. Left eye blindness. 3. History of questionable cirrhosis. The patient is at high-risk of liver cancer. Abdominal imaging is recommended. 4. Post hip fracture. The patient MRI or CT scan to evaluate the extent of the damage to his left hip. 5. Right knee pain. The patient does have a the patient is to follow up with his orthopedic surgeon. 6. Bruising, etiology unclear not clear. The patient's PT and PTT evaluated. If persists, the evaluated as an outpatient basis. Red Cardona M.D. DR: HOSEA JOB#: [id number] CC:
--- NOTE | 2019-02-21 11:28 | Discharge Summary ---
Christina Eisenberg NP 02/21/19 1128: Discharge Summary Discharge Summary _ DATE OF ADMISSION: 02/16/2019 DATE OF DISCHARGE: 02/20/2019 DISCHARGED BY: Dr. Alfonso Trujillo PORTABLE CANTEEN OPERATOR: Dr. Red Cardona BRIEF HOSPITAL COURSE: Patient is a 23-year-old gentleman, with history of COPD and multiple falls, who was brought in by EMS, status post mechanical fall. He tripped while using the walker. He had surgery to the right hip the previous month. He complained of right hip pain, which was sharp, 10/10. He was unable to bear weight. On evaluation at ED, vital signs were stable. Blood work did not show any leukocytosis, 13, hematocrit 40. Platelet count of 72. Electrolytes were normal. X-ray of the left hip showed superior pubic rami fracture extending into the pubic symphysis. Right hip x-ray showed the hardware in place with no acute fracture. At the emergency room, ER physician discussed case with orthopedic surgeon Dr. Khan. Per orthopedic recommendation, fracture is nonoperative. Can be managed medically, however patient will likely have problems ambulating. He was then admitted for evaluation of hip fracture and for physical therapy. He was placed on fall precautions. He was continued on Flomax and Proscar for BPH. He was given SCDs for DVT prophylaxis. He was given pain management. He was continued on his inhalers for his COPD. He was given physical therapy. He was noted to have thrombocytopenia. Production Superintendent was consulted. He claimed he had history of cirrhosis in the past. Patient had thrombocytopenia, leukopenia and anemia. There was no active bleeding. He was cleared for discharge and can have extensive evaluation as outpatient. He was eventually discharged to [facility] to continue rehabilitation. FINAL DIAGNOSES: Left pubic rami fracture status post fall Thrombocytopenia, leukopenia and anemia COPD BPH Left eye blindness DISPOSITION: Patient was discharged to a SNF. DISCHARGE MEDICATIONS: Refer to Discharge Medication List. I have been assigned to complete a discharge summary on this account, I was not involved with the patient's management. Alfonso Trujillo MD 02/21/19 1354: Discharge Summary Discharge Summary _ Patient long d/w Hem/Onc. Will need to follow up with Hematology Christina Eisenberg NP Feb 21, 2019 11:28 Alfonso Trujillo MD Feb 21, 2019 13:54
== END 2019-02-20 15:10 | DRG 536 ==
LOC: EDBD 17:44 → EMR 21:00 → EDBEDREQ 21:29 → 3E 21:45
DX: S32.512A Fracture of superior rim of left pubis, initial encounter for closed fracture (principal); W01.0XXA Fall on same level from slipping, tripping and stumbling without subsequent striking against object, initial encounter; M25.551 Pain in right hip; J44.9 Chronic obstructive pulmonary disease, unspecified; N40.0 Benign prostatic hyperplasia without lower urinary tract symptoms; Z88.8 Allergy status to other drugs, medicaments and biological substances; D69.6 Thrombocytopenia, unspecified; Z90.01 Acquired absence of eye; I25.2 Old myocardial infarction; Z87.891 Personal history of nicotine dependence; D72.819 Decreased white blood cell count, unspecified
CPT/HCPCS: 36415; 73502; 80048; 80053; 85007; 85025; 85610; 85730; 86850; 86900; 86901; 87081; 94640; 94664; 94760; 96374; 99285

== ENCOUNTER 2019-08-21 13:23 | Emergency (ER) | payer MEDICARE ==
[~2019-08-21] VITALS: Ht 175.3 cm; Wt 53.5 kg
[~2019-08-21 13:23] MED LIST changes: +ADVAIR 100-501 EACH INH; +CENTRUM SILVER1 EAC2 PO; +VISINE TEARS DR15 ML OP
[2019-08-21 13:30] VITALS: BP 121/77
--- NOTE | 2019-08-21 13:30 | NUR ---
ED Nurse Note: Patient walked into ED c/o SOB for the past 3 days, states that he usually has a nedubilizer at home but have been unable to receive those treatments due to the lack of tubing, patient does have a history of COPD and Asthma. o2 sat at 97% on room air. will wait for further orders
--- NOTE | 2019-08-21 13:56 | Emergency Room Report ---
History of Present Illness General Chief Complaint: Dyspnea/Respdistress Source: Patient Present Illness [facility] Disclaimer: Please note that this report is being documented using DRAGON technology. This can lead to erroneous entry secondary to incorrect interpretation by the dictating instrument. HPI: 73-year-old male with a history of asthma and COPD who uses oxygen at night presents for evaluation of shortness of breath and medication refill. He treats his COPD with albuterol inhaler, nebulizer treatments at home and Advair Diskus. He ran out of his albuterol inhaler and no longer has the tubing for his nebulizer machine. He has been feeling somewhat short of breath for several days. Notes a slight cough but seems to be within his baseline. Denies any respiratory distress, fevers, nasal congestion, sore throat, chest pain, abdominal pain, vomiting, diarrhea or any other changes in his health. No recent admissions for shortness of breath or COPD exacerbation. Otherwise in his usual state of health. Continues to smoke. PMH: Asthma, COPD, blind in the left eye, BPH PSH: See chart Allergies: Tetracycline skin rash Social Hx: Continues to smoke, occasional alcohol use. Denies drug use Allergies: Coded Allergies: TETRACYCLINE (Unverified Allergy, Unknown, 02/16/19) Nursing Documentation-PMH Past Medical History: No History, Except For Hx Cardiac Problems: Yes Hx Hypertension: Yes Hx Asthma: Yes Hx COPD: Yes Hx Cancer: No Hx Gastrointestinal Problems: No Hx Neurological Problems: No Review of Systems All Other Systems: negative except mentioned in HPI Physical Exam Vital Signs Date Time Temp Pulse Resp B/P (MAP) Pulse Ox O2 Delivery O2 Flow Rate FiO2 08/21/19 13:27 97.9 85 22 121/77 (92) 89 Room Air General: Awake and alert, no acute distress HEENT: NC/AT. No tenderness over the frontal or maxillary sinuses. EOMI. left eye is abducted. Poor dentition. MMM Cardiovascular: RRR. S1 and S2 normal. No murmur appreciated Resp: Normal work of breathing. Intermittent cough. Scattered expiratory wheezes in the lower lung hill. No crackles. Abdomen: Abdomen is soft, nondistended. Nontender Skin: Intact. No abrasions, laceration or rash over the exposed skin MSK: Normal tone and bulk. Moving all extremities. No obvious deformity. Neuro: Awake and alert. Mentating appropriately. Medical Decision Making Diagnostic Impression: Primary Impression: COPD (chronic obstructive pulmonary disease) Additional Impressions: Medication refill Pneumonia ER Course 73-year-old male with history of asthma and COPD who ran out of his albuterol and nebulizer treatments last week presents for evaluation of several days shortness of breath. Denies any new cough but states he has his chronic cough and feels tight in the chest but has not had any respiratory distress. He is breathing easily, vital signs are within normal limits, continues to use his Advair. We will give him a DuoNeb treatment in the emergency department and get an x-ray to rule out any infiltrates. Do not see an indication for blood work at this time as the patient is overall very well-appearing and is mainly requesting medication refill. If symptomatically improved and there are no abnormalities on x-ray he may be discharged home to follow-up with his PMD. Will provide tubing for his nebulizer machine. If he remains symptomatic can advance work-up as needed Chest X-Ray Diagnostic Results Chest X-Ray Diagnostic Results : Chest X-Ray Ordered: Yes # of Views/Limited/Complete: 2 View Indication: Shortness of Breath EP Interpretation: Yes Interpretation: no consolidation, no effusion, no pneumothorax, no acute cardiopulmonary disease Impression: No acute disease Electronically Signed by: Electronically signed by Dr. Hang Barnes Reevaluation Time: 15:19 Last Vital Signs Date Time Temp Pulse Resp B/P (MAP) Pulse Ox O2 Delivery O2 Flow Rate FiO2 08/21/19 13:30 97.9 86 22 121/77 97 Room Air Status: improved Reevaluation Impression Wheezing is now resolved. Patient states he is feeling much better. Chest x- ray does not show an obvious consolidation though there may be some atelectasis in the left lower lobe. We will treat the patient with antibiotics prophylactically for 1 week, start steroids and I have refilled his medications. Patient was provided with tubing for his nebulizer and refills of his albuterol, Advair, nebulizer treatments. He will follow-up with his PMD next week. Discussed reasons to return to the emergency department. He understands and agrees with treatment plan. Disposition: HOME, SELF-CARE Condition: Stable Scripts Amoxicillin/Potassium Clav 875-125* (AUGMENTIN 875-125 TABLET*) 1 Each Tablet 1 TAB ORAL TWICE A DAY for 7 Days, #14 TAB Prov: Hang Barnes MD 08/21/19 Fluticasone/Salmeterol (Advair 100-50 Diskus) 1 Each Blst.w.dev 1 PUFF INH EVERY 12 HOURS for 30 Days, #60 EA Prov: Hang Barnes MD 08/21/19 Prednisone* (PREDNISONE*) 20 Mg Tablet 40 MG ORAL DAILY for 5 Days, #10 TAB Prov: Hang Barnes MD 08/21/19 Albuterol Sulfate* (ALBUTEROL SULFATE HHN*) 2.5 Mg/3 Ml Vial.neb 2.5 MG HHN Q4H PRN for Shortness of Breath, #50 VIAL Prov: Hang Barnes MD 08/21/19 Albuterol Sulfate* (ALBUTEROL SULFATE MDI*) 8.5 Gm Hfa.aer.ad 2 PUFF INH Q4H PRN for cough/wheezing, #1 EA 0 Refills Prov: Hang Barnes MD 08/21/19 Hang aBrnes MD Aug 21, 2019 13:55
[2019-08-21] MEDS ORDERED: Albuterol/Ipratropium 3ml neb HHN ONE (14:00)
[2019-08-21] MEDS ORDERED: PREDNISONE20 MG ORAL (14:04)
[2019-08-21] MEDS ORDERED: ADVAIR 100-501 EACH INH (14:04)
[2019-08-21] MEDS ORDERED: ALBUTEROL2.5 MG/3 M HHN (14:04)
[2019-08-21] MEDS ORDERED: ALBUTEROL SULF8.5 GM INH (14:04)
[2019-08-21] MEDS ORDERED: AUGMENTIN 875-1 EAC1 ORAL (15:18)
[2019-08-21 15:26] VITALS: BP 118/72
--- NOTE | 2019-08-21 15:26 | NUR ---
ER DISCHARGE NOTE: Patient is cleared to be discharged per ERMD, pt is aox4, on room air, with stable vital signs. pt was given dc and prescription instructions, pt was able to verbalize understanding, pt id band removed without complications. pt is able to ambulate with steady gait. pt took all belongings.
--- NOTE | 2019-08-21 17:31 | Diagnostic Imaging Report ---
Indication: Cough Technique: 2 views of the chest Comparison: 01/17/2018 Findings: There is some patchy infiltrate in the left lung near the cardiac apex and left midlung. The remainder the lungs and pleural spaces are clear. The heart size is normal. The aorta is calcified. Impression: Patchy left lung infiltrates, may indicate focal pneumonia. Correlate with clinical findings
== END 2019-08-21 15:27 | disposition home or self-care (01) ==
LOC: EMR 13:53
DX: J44.0 Chronic obstructive pulmonary disease with (acute) lower respiratory infection (principal); J18.9 Pneumonia, unspecified organism; Z72.0 Tobacco use; Z99.81 Dependence on supplemental oxygen; N40.0 Benign prostatic hyperplasia without lower urinary tract symptoms; H54.62 Unqualified visual loss, left eye, normal vision right eye; Z88.1 Allergy status to other antibiotic agents; I10 Essential (primary) hypertension; Z79.51 Long term (current) use of inhaled steroids
CPT/HCPCS: 71046; 94640; 99284; J7512; J7620

== ENCOUNTER 2019-09-01 20:05 | Emergency (ER) | payer MEDICARE ==
[~2019-09-01] VITALS: Ht 175.3 cm; Wt 54.4 kg
[~2019-09-01 20:05] MED LIST changes: +ALBUTEROL SULF8.5 GM INH; +ALBUTEROL2.5 MG/3 M HHN; +AUGMENTIN 875-1 EAC1 ORAL; +PREDNISONE20 MG ORAL
[2019-09-01 20:24] VITALS: BP 110/70
--- NOTE | 2019-09-01 20:25 | NUR ---
ED Nurse Note: pt brought from home for S/P fall with skin tear to right elbow area. pt c/o pain to right shoulder and elbow area. pt denies taking blood thinners.
[2019-09-01] MEDS ORDERED: Morphine Sulfate 2mg/ml Inj(IV/IM USE ONLY) IM ONE (20:45)
--- NOTE | 2019-09-01 20:50 | NUR ---
ED Nurse Note: x ray at bed side
--- NOTE | 2019-09-01 22:28 | NUR ---
ED Nurse Note: right arm immoblzed with sling
--- NOTE | 2019-09-01 22:47 | Emergency Room Report ---
History of Present Illness General Chief Complaint: Multiple Trauma/Fall Present Illness HPI Patient tripped and fell. He had both of his forearms. He cut his left forearm and also has pain in his right shoulder. The numbness in the hand on the right-hand side. Is right-handed Patient fell last week. He had a laceration on his forehead. He had a CT scan done at that time and says it was normal. He did not sustain injury to his head today. Allergies: Coded Allergies: TETRACYCLINE (Unverified Allergy, Unknown, 02/16/19) Patient History Social History: Reports: smoking, alcohol use Social History Narrative board and care Reviewed Nursing Documentation: PMH: Agreed; PSxH: Agreed Nursing Documentation-PMH Hx Cardiac Problems: Yes Hx Hypertension: Yes Hx Asthma: Yes Hx COPD: Yes Hx Cancer: No Hx Gastrointestinal Problems: No Hx Neurological Problems: No Physical Exam Vital Signs Date Time Temp Pulse Resp B/P (MAP) Pulse Ox O2 Delivery O2 Flow Rate FiO2 09/01/19 20:17 97.5 95 16 107/70 (82) 90 Room Air Medical Decision Making Diagnostic Impression: Primary Impression: Proximal humeral fracture Additional Impressions: Alcohol abuse Skin tear Status: improved Disposition: ASSISTED LIVING - board and care Condition: Improved Андрей Walker MD Sep 01, 2019 22:47
[2019-09-01] MEDS ORDERED: COLACE100 MG ORAL (22:52)
[2019-09-01] MEDS ORDERED: ACETAMINOPHEN-1 EAC1 ORAL (22:52)
[2019-09-01] MEDS ORDERED: BACITRACIN15 GM TOPIC (22:52)
[2019-09-01] MEDS ORDERED: oxyCODONE HCL/Acetaminophen 5/325mg ORAL ONE (23:00)
[2019-09-01 23:08] VITALS: BP 115/70
--- NOTE | 2019-09-01 23:08 | NUR ---
ER DISCHARGE NOTE: Patient is cleared to be discharged per ERMD, pt is aox4, on room air, with stable vital signs. pt was given dc and prescription instructions, pt was able to verbalize understanding, pt id band removed without complications. pt took all belongings. taxi was called and pt is wating in waiting room at this time.
--- NOTE | 2019-09-02 14:33 | Diagnostic Imaging Report ---
Indication: Trauma, pain Technique: 3 views of the right shoulder Comparison: none Findings: There is an angulated and slightly distracted fracture of the right humeral neck. The joint spaces are preserved. The bones appear osteoporotic. Impression: Positive for right humeral neck fracture
--- NOTE | 2019-09-02 14:42 | Diagnostic Imaging Report ---
Indication: Pain, status post fall Technique: 3 views of the left shoulder Comparison: none Findings: No acute fractures. No dislocations. The joint spaces are preserved Impression: Negative
== END 2019-09-01 23:08 | disposition home or self-care (01) ==
LOC: EMR 21:00
DX: S42.201A Unspecified fracture of upper end of right humerus, initial encounter for closed fracture (principal); S01.81XA Laceration without foreign body of other part of head, initial encounter; M25.512 Pain in left shoulder; F17.200 Nicotine dependence, unspecified, uncomplicated; Z88.1 Allergy status to other antibiotic agents; I10 Essential (primary) hypertension; J44.9 Chronic obstructive pulmonary disease, unspecified; W01.0XXA Fall on same level from slipping, tripping and stumbling without subsequent striking against object, initial encounter; Y92.099 Unspecified place in other non-institutional residence as the place of occurrence of the external cause
CPT/HCPCS: 73030; 96372; 99284; J2270